=== PATIENT | male | born 1975 | race Caucasian/White ===

== ENCOUNTER 2019-07-02 03:17 | Observation (INO) | payer OTHER ==
[~2019-07-02] VITALS: Ht 182.9 cm; Wt 106.8 kg
[~2019-07-02 03:17] MED LIST: CHLO25 PO; CITA20; SUCR1 PO; Zantac150 MG PO
[2019-07-02 03:37] LABS: BASOPHILS ABSOLUTE AUTO 0.05 K/mm3 (0.00-0.23); BASOPHILS PERCENT AUTO 1 % (0-2); EOSINOPHILS PERCENT AUTO 0 % (0-6); Hematocrit 45.2 % (37.0-53.0); IMMATURE GRAN ABSOLUTE AUTO 0.02 K/mm3 (0.00-0.10); IMMATURE GRAN PERCENT AUTO 0 % (0-1); LYMPHOCYTES ABSOLUTE AUTO 0.88 K/mm3 (0.84-5.20); LYMPHOCYTES PERCENT AUTO 12 % (21-46); MONOCYTES ABSOLUTE AUTO 0.74 K/mm3 (0.16-1.47); MONOCYTES PERCENT AUTO 10 % (4-13); Mean Corpuscular HGB 32.1 pg (26.0-34.0); Mean Corpuscular HGB Conc 33.2 g/dL (31.5-36.5); Mean Corpuscular Volume 97 fL (80-100); Mean Platelet Volume 9.4 fL (9.1-12.4); NEUTROPHILS ABSOLUTE AUTO 5.79 K/mm3 (1.96-9.15); NEUTROPHILS PERCENT AUTO 77 % (41-73); Platelet Count 166 K/mm3 (150-400); RDW Coefficient Variation 14.1 % (11.7-14.2); RDW Standard Deviation 50.6 fL (35.1-46.3); Red Blood Cell Count 4.67 M/mm3 (4.30-5.90); White Blood Cell Count 7.48 K/mm3 (4.00-11.30)
[2019-07-02 03:53] LABS: Alanine Aminotransfer (ALT/SGP 101 U/L (12-78); Albumin, Blood 3.8 g/dL (3.4-5.0); Alk Phos 98 U/L (50-136); Anion Gap 10 mmol/L (6-16); Aspartate Aminotrans (AST/SGOT 104 U/L (12-37); Bilirubin, Total 0.7 mg/dL (0.1-1.0); Blood Urea Nitrogen 2 mg/dL (8-24); Bun/Creatinine Ratio 2.4 (12.0-20.0); CO2, Blood 28 mmol/L (21-32); Calcium, Blood 8.3 mg/dL (8.5-10.1); Chloride, Blood 100 mmol/L (98-108); Creatinine, Blood 0.83 mg/dL (0.60-1.20); Globulin, Blood 3.8 g/dL (2.2-4.0); Glomerular Filtration Rate >60 (60-); Glucose, Blood 100 mg/dL (70-99); Potassium, Blood 2.9 mmol/L (3.5-5.5); Sodium, Blood 138 mmol/L (136-145); Total Protein, Blood 7.6 g/dL (6.4-8.2)
[2019-07-02] MEDS ORDERED: CHLO25 PO (05:05)
[2019-07-02 06:41] LABS: Magnesium, Blood 1.3 mg/dL (1.6-2.4); Phosphorus, Blood 1.2 mg/dL (2.5-4.9)
[2019-07-02] MEDS ORDERED: Nicoderm Cq1 EACH TOP (15:29)
[2019-07-02] MEDS ORDERED: THERA M PLUS T1 EACH PO (15:30)
[2019-07-02] MEDS ORDERED: METO25ER PO (15:31)
--- NOTE | 2019-07-02 15:58 | NUR ---
PATIENT D/C'D TO HOME WITH FAMILY. D/C INSTRUCTIONS AND EDUCATION DISCUSSED WITH PATIENT AND COPY PROVIDED. RX MEDICATIONS FAXED TO [facility] IN [place]. HARD SCRIPT FOR METOPROLOL 25MG DAILY GIVEN TO PATIENT. PATIENT DENIES ANY FURTHER QUESTIONS OR CONCERNS.
== END 2019-07-02 15:55 | disposition home or self-care (01) ==
LOC: ER 03:17 → MEDS 03:18
PROVIDERS: Emergency Medicine; ADMIT Internal Medicine
DX: F41.9 Anxiety disorder, unspecified (principal); J96.01 Acute respiratory failure with hypoxia; F10.239 Alcohol dependence with withdrawal, unspecified; E87.6 Hypokalemia; E83.42 Hypomagnesemia; E83.39 Other disorders of phosphorus metabolism; R79.89 Other specified abnormal findings of blood chemistry; I10 Essential (primary) hypertension; F17.210 Nicotine dependence, cigarettes, uncomplicated; Z79.899 Other long term (current) drug therapy
CPT/HCPCS: 71046; 71260; 80053; 83735; 84100; 84484; 85025; 93005; 93010; 94640; 96361; 96372; 96374-59; 96375; 96375-59; 99285-25; G0378; J1650; J2060; J2930; J3475; J7030; J7060; Q9967

== ENCOUNTER 2021-09-03 09:54 | Emergency (ER) | payer OTHER ==
[~2021-09-03] VITALS: Ht 182.9 cm; Wt 132.0 kg
[~2021-09-03 09:54] MED LIST changes: +METO25ER PO; +Nicoderm Cq1 EACH TOP; +THERA M PLUS T1 EACH PO
[2021-09-03 11:38] LABS: BASOPHILS ABSOLUTE AUTO 0.04 K/mm3 (0.00-0.23); BASOPHILS PERCENT AUTO 1 % (0-2); EOSINOPHILS ABSOLUTE AUTO 0.12 K/mm3 (0.00-0.68); EOSINOPHILS PERCENT AUTO 2 % (0-6); Hematocrit 29.2 % (37.0-53.0); Hemoglobin 8.3 g/dL (13.5-17.5); IMMATURE GRAN ABSOLUTE AUTO 0.04 K/mm3 (0.00-0.10); IMMATURE GRAN PERCENT AUTO 1 % (0-1); LYMPHOCYTES ABSOLUTE AUTO 1.09 K/mm3 (0.84-5.20); LYMPHOCYTES PERCENT AUTO 14 % (21-46); MONOCYTES ABSOLUTE AUTO 0.85 K/mm3 (0.16-1.47); MONOCYTES PERCENT AUTO 11 % (4-13); Mean Corpuscular HGB 22.9 pg (26.0-34.0); Mean Corpuscular HGB Conc 28.4 g/dL (31.5-36.5); Mean Corpuscular Volume 81 fL (80-100); Mean Platelet Volume 11.1 fL (9.1-12.4); NEUTROPHILS ABSOLUTE AUTO 5.44 K/mm3 (1.96-9.15); NEUTROPHILS PERCENT AUTO 72 % (41-73); Platelet Count 109 K/mm3 (150-400); RDW Coefficient Variation 19.8 % (11.7-14.2); RDW Standard Deviation 57.2 fL (35.1-46.3); Red Blood Cell Count 3.62 M/mm3 (4.30-5.90); White Blood Cell Count 7.58 K/mm3 (4.00-11.30)
[2021-09-03 12:15] LABS: Alanine Aminotransfer (ALT/SGP 44 U/L (12-78); Albumin, Blood 2.6 g/dL (3.4-5.0); Albumin/Globulin Ratio 0.6 (0.8-1.8); Alk Phos 129 U/L (50-136); Anion Gap 7 mmol/L (6-16); Aspartate Aminotrans (AST/SGOT 156 U/L (12-37); Bilirubin, Total 1.5 mg/dL (0.1-1.0); Blood Urea Nitrogen 3 mg/dL (8-24); Bun/Creatinine Ratio 5.3 (12.0-20.0); CO2, Blood 31 mmol/L (21-32); Calcium, Blood 8.4 mg/dL (8.5-10.1); Chloride, Blood 104 mmol/L (98-108); Creatinine, Blood 0.56 mg/dL (0.60-1.20); Globulin, Blood 4.1 g/dL (2.2-4.0); Glomerular Filtration Rate >60 (60-); Glucose, Blood 107 mg/dL (70-99); Potassium, Blood 3.5 mmol/L (3.5-5.5); Sodium, Blood 142 mmol/L (136-145); Total Protein, Blood 6.7 g/dL (6.4-8.2); Troponin I <0.015 ng/mL (0.000-0.040)
[2021-09-03] MEDS ORDERED: POTA10T PO (13:24)
[2021-09-03] MEDS ORDERED: FURO20 PO (13:24)
[2021-09-03] MEDS ORDERED: ALBU90OI INH (13:35)
[2021-11-23] MEDS ORDERED: TORS10 PO (03:57)
[2021-11-23] MEDS ORDERED: FERSU300 PO (03:57)
[2021-12-07] MEDS ORDERED: BUME2 PO (15:11)
[2021-12-07] MEDS ORDERED: LOSA25 PO (15:11)
[2021-12-07] MEDS ORDERED: LACT10SY PO (15:12)
[2021-12-07] MEDS ORDERED: POTCHL20ER PO (15:13)
[2021-12-07] MEDS ORDERED: ALDACTONE100 MG PO (15:13)
[2021-12-07] MEDS ORDERED: KLOR-CON 1010 MEQ PO (15:17)
== END 2021-09-03 14:02 | disposition home or self-care (01) ==
LOC: ER 09:54
PROVIDERS: Physician Assistant
DX: R60.0 Localized edema (principal); D64.9 Anemia, unspecified; E88.09 Other disorders of plasma-protein metabolism, not elsewhere classified; F10.10 Alcohol abuse, uncomplicated; F17.290 Nicotine dependence, other tobacco product, uncomplicated
CPT/HCPCS: 36415; 80053; 83690; 83880; 84484; 85025; 93005; 93010; 99283-25

== ENCOUNTER → 2021-09-12 | Outpatient (CLI) | payer OTHER ==
[~2021-09-12] MED LIST changes: +ALBU90OI INH; +FURO20 PO; +POTA10T PO
[2021-09-12 16:13] LABS: Anion Gap 5 mmol/L (6-16); Blood Urea Nitrogen 3 mg/dL (8-24); Bun/Creatinine Ratio 4.4 (12.0-20.0); CO2, Blood 34 mmol/L (21-32); Calcium, Blood 8.9 mg/dL (8.5-10.1); Chloride, Blood 100 mmol/L (98-108); Creatinine, Blood 0.68 mg/dL (0.60-1.20); Glomerular Filtration Rate >60 (60-); Glucose, Blood 133 mg/dL (70-99); Potassium, Blood 3.6 mmol/L (3.5-5.5); Sodium, Blood 139 mmol/L (136-145)
== END | disposition home or self-care (01) ==
LOC: LAB SHORT 16:04
PROVIDERS: Physician Assistant Surgical
DX: R60.0 Localized edema (principal)
CPT/HCPCS: 80048; 83880

== ENCOUNTER → 2021-12-15 | Outpatient (CLI) | payer OTHER ==
[~2021-12-15] MED LIST changes: +ALDACTONE100 MG PO; +BUME2 PO; +FERSU300 PO; +KLOR-CON 1010 MEQ PO; +LACT10SY PO; +LOSA25 PO; +POTCHL20ER PO; +TORS10 PO
[2021-12-15 16:27] LABS: BASOPHILS ABSOLUTE AUTO 0.05 K/mm3 (0.00-0.23); BASOPHILS PERCENT AUTO 1 % (0-2); EOSINOPHILS ABSOLUTE AUTO 0.12 K/mm3 (0.00-0.68); EOSINOPHILS PERCENT AUTO 1 % (0-6); Hematocrit 37.3 % (37.0-53.0); Hemoglobin 11.4 g/dL (13.5-17.5); IMMATURE GRAN ABSOLUTE AUTO 0.02 K/mm3 (0.00-0.10); IMMATURE GRAN PERCENT AUTO 0 % (0-1); LYMPHOCYTES ABSOLUTE AUTO 1.56 K/mm3 (0.84-5.20); LYMPHOCYTES PERCENT AUTO 16 % (21-46); MONOCYTES ABSOLUTE AUTO 1.43 K/mm3 (0.16-1.47); MONOCYTES PERCENT AUTO 14 % (4-13); Mean Corpuscular HGB 28.6 pg (26.0-34.0); Mean Corpuscular HGB Conc 30.6 g/dL (31.5-36.5); Mean Corpuscular Volume 94 fL (80-100); NEUTROPHILS ABSOLUTE AUTO 6.82 K/mm3 (1.96-9.15); NEUTROPHILS PERCENT AUTO 68 % (41-73); Platelet Count 159 K/mm3 (150-400); RDW Coefficient Variation 23.4 % (11.7-14.2); RDW Standard Deviation 79.7 fL (35.1-46.3); Red Blood Cell Count 3.99 M/mm3 (4.30-5.90)
[2021-12-18 14:37] LABS: CORONAVIRUS (COVID19) CSH-NRL Negative (Negative)
== END | disposition home or self-care (01) ==
LOC: LAB SHORT 16:23
PROVIDERS: Family Medicine
DX: K92.1 Melena (principal); Z20.822 Contact with and (suspected) exposure to COVID-19
CPT/HCPCS: 85025

== ENCOUNTER 2021-12-22 13:33 | Inpatient (IN) | payer OTHER ==
[~2021-12-22] VITALS: Ht 185.4 cm; Wt 113.5 kg
[2021-12-22 14:13] LABS: BASOPHILS ABSOLUTE AUTO 0.03 K/mm3 (0.00-0.23); BASOPHILS PERCENT AUTO 0 % (0-2); EOSINOPHILS ABSOLUTE AUTO 0.04 K/mm3 (0.00-0.68); EOSINOPHILS PERCENT AUTO 0 % (0-6); Hematocrit 35.5 % (37.0-53.0); Hemoglobin 11.4 g/dL (13.5-17.5); IMMATURE GRAN ABSOLUTE AUTO 0.04 K/mm3 (0.00-0.10); IMMATURE GRAN PERCENT AUTO 0 % (0-1); LYMPHOCYTES ABSOLUTE AUTO 1.27 K/mm3 (0.84-5.20); LYMPHOCYTES PERCENT AUTO 14 % (21-46); MONOCYTES PERCENT AUTO 9 % (4-13); Mean Corpuscular HGB 28.7 pg (26.0-34.0); Mean Corpuscular HGB Conc 32.1 g/dL (31.5-36.5); Mean Corpuscular Volume 89 fL (80-100); Mean Platelet Volume 11.8 fL (9.1-12.4); NEUTROPHILS ABSOLUTE AUTO 6.96 K/mm3 (1.96-9.15); NEUTROPHILS PERCENT AUTO 76 % (41-73); Platelet Count 183 K/mm3 (150-400); RDW Coefficient Variation 22.2 % (11.7-14.2); RDW Standard Deviation 71.7 fL (35.1-46.3); Red Blood Cell Count 3.97 M/mm3 (4.30-5.90); White Blood Cell Count 9.14 K/mm3 (4.00-11.30)
[2021-12-22 15:01] LABS: Albumin, Blood 3.9 g/dL (3.4-5.0); Albumin/Globulin Ratio 0.7 (0.8-1.8); Bilirubin, Total 2.5 mg/dL (0.1-1.0); Globulin, Blood 5.3 g/dL (2.2-4.0); Total Protein, Blood 9.2 g/dL (6.4-8.2)
[2021-12-22 15:02] LABS: Bun/Creatinine Ratio 10.9 (12.0-20.0); Creatinine, Blood 9.48 mg/dL (0.60-1.20); Potassium, Blood 7.3 mmol/L (3.5-5.5)
[2021-12-22 15:20] LABS: International Normalized Ratio 1.3; Prothrombin Time Results 13.4 Sec (9.7-11.5)
[2021-12-22 16:15] LABS: Calcium, Ionized (POC) 1.09 mmol/L (1.10-1.46); Chloride (POC) 98 mmol/L (98-108); Glucose (ISTAT POC) 150 mg/dL (70-99); Hemoglobin (POC) 10.2 g/dL (13.5-17.5); Potassium (POC) 6.4 mmol/L (3.5-5.5); Sodium (POC) 131 mmol/L (135-148); Total CO2 (POC) 18 mmol/L (21-32)
[2021-12-22] MEDS ORDERED: BUME2 PO (17:18)
[2021-12-22] MEDS ORDERED: FeroSul 325 mg (65 m PO (17:19)
[2021-12-22] MEDS ORDERED: ENULOSE PO (17:20)
[2021-12-22] MEDS ORDERED: LOSARTAN POTAS100 M1 PO (17:21)
[2021-12-22] MEDS ORDERED: OMEP20ER PO (17:23)
[2021-12-22] MEDS ORDERED: K-Dur20 MEQ PO (17:24)
[2021-12-22] MEDS ORDERED: Aldactone50 MG PO (17:25)
[2021-12-22 20:33] LABS: Source, Urine Clean Catch
[2021-12-22 20:37] LABS: Appearance, Urine Clear (Clear); Bilirubin, Urine Neg (Neg); Blood, Urine 1+ (Neg); Color, Urine Yellow (P-Yellow); Glucose Qualitative, Urine Neg (Neg); Ketones, Urine Neg (Neg); Leukocyte Esterase, Urine Neg (Neg); Nitrite, Urine Neg (Neg); Protein, Urine 1+ (Neg); Urobilinogen, Urine NORM (Normal)
[2021-12-22 20:50] LABS: Bacteria Mod /hpf; Red Blood Cells, Urine Rare /hpf (0-2); Squamous Epithelial Cells Rare /hpf (Few); White Blood Cells, Urine 0-2 /hpf (0-5)
[2021-12-22 21:03] LABS: BASOPHILS ABSOLUTE AUTO 0.03 K/mm3 (0.00-0.23); BASOPHILS PERCENT AUTO 0 % (0-2); EOSINOPHILS PERCENT AUTO 1 % (0-6); Hematocrit 34.9 % (37.0-53.0); Hemoglobin 10.7 g/dL (13.5-17.5); IMMATURE GRAN ABSOLUTE AUTO 0.03 K/mm3 (0.00-0.10); IMMATURE GRAN PERCENT AUTO 0 % (0-1); LYMPHOCYTES ABSOLUTE AUTO 1.28 K/mm3 (0.84-5.20); LYMPHOCYTES PERCENT AUTO 17 % (21-46); MONOCYTES ABSOLUTE AUTO 0.81 K/mm3 (0.16-1.47); MONOCYTES PERCENT AUTO 11 % (4-13); Mean Corpuscular HGB 29.2 pg (26.0-34.0); Mean Corpuscular HGB Conc 30.7 g/dL (31.5-36.5); Mean Platelet Volume 11.5 fL (9.1-12.4); NEUTROPHILS ABSOLUTE AUTO 5.26 K/mm3 (1.96-9.15); NEUTROPHILS PERCENT AUTO 70 % (41-73); Platelet Count 128 K/mm3 (150-400); RDW Coefficient Variation 22.5 % (11.7-14.2); RDW Standard Deviation 77.7 fL (35.1-46.3); Red Blood Cell Count 3.67 M/mm3 (4.30-5.90); White Blood Cell Count 7.51 K/mm3 (4.00-11.30)
[2021-12-22 21:06] LABS: Mean Corpuscular Volume 95 fL (80-100)
[2021-12-22 21:29] LABS: Ethanol (Alcohol), Blood, Med <3 mg/dL
[2021-12-22 21:40] LABS: Albumin, Blood 3.7 g/dL (3.4-5.0); Anion Gap 14 mmol/L (6-16); Blood Urea Nitrogen 99 mg/dL (8-24); Bun/Creatinine Ratio 11.6 (12.0-20.0); CO2, Blood 18 mmol/L (21-32); Chloride, Blood 98 mmol/L (98-108); Creatinine, Blood 8.56 mg/dL (0.60-1.20); Glomerular Filtration Rate 7 (60-); Glucose, Blood 114 mg/dL (70-99); Potassium, Blood 6.7 mmol/L (3.5-5.5); Sodium, Blood 130 mmol/L (136-145)
[2021-12-22 21:41] LABS: Phosphorus, Blood 8.1 mg/dL (2.5-4.9)
--- NOTE | 2021-12-23 02:40 | NUR ---
PATIENT TO ROOM FROM ER AT 2015, SLID TO BED. PATIENT IS LETHARGIC BUT ABLE TO HOLD A CONVERSATION, ORIENTED X4 BUT SLOW TO RESPOND AND FORGETFULL. MOVES ALL EXTREMETIES AND FOLLOWS COMMANDS. 02 SATS >93% ON RA, PATIENT HAS A DRY COUGH WITH COARSE LUNG SOUNDS THROUGHOUT. DENIES SOB. HR SR-ST 90s-150s, HR INCREASES WITH ACTIVITY. BP HYPOTENSIVE WHEN PATIENT ARRIVED, MIDODRINE GIVEN AND ALBUMIN GIVEN, BP NOW STABLE. PULSES STRONG IN ALL EXTREMETIES. PITTING EDEMA, REDNESS AND PAINFUL BLE. PATIENT STATES REDNESS AND PAIN IN LEGS STARTED 12/22/21. PATIENT HAVING LOOSE/SOFT STOOLS, SOME BRIGHT RED IN FIRST BM AND NOW BROWN. URINATING IN URINAL, CLEAR YELLOW. MOM AT BEDSIDE, CONFIRMED MED LIST. DR. BASS AT [facility] WHEN PATIENT ARRIVED AND TO SEE PATIENT JUST BEFORE 2200. AWARE OF CRITICAL LAB VALUES, MEDICATED PATIENT PER S ORDERS. NOTIED DR OF CONFLICTING ORDERS WITH DR. BASS.
[2021-12-23 04:00] LABS: BASOPHILS ABSOLUTE AUTO 0.03 K/mm3 (0.00-0.23); BASOPHILS PERCENT AUTO 0 % (0-2); EOSINOPHILS ABSOLUTE AUTO 0.13 K/mm3 (0.00-0.68); EOSINOPHILS PERCENT AUTO 2 % (0-6); Hematocrit 29.6 % (37.0-53.0); Hemoglobin 9.4 g/dL (13.5-17.5); IMMATURE GRAN ABSOLUTE AUTO 0.02 K/mm3 (0.00-0.10); IMMATURE GRAN PERCENT AUTO 0 % (0-1); LYMPHOCYTES ABSOLUTE AUTO 1.32 K/mm3 (0.84-5.20); LYMPHOCYTES PERCENT AUTO 17 % (21-46); MONOCYTES ABSOLUTE AUTO 0.93 K/mm3 (0.16-1.47); MONOCYTES PERCENT AUTO 12 % (4-13); Mean Corpuscular HGB 28.5 pg (26.0-34.0); Mean Corpuscular HGB Conc 31.8 g/dL (31.5-36.5); Mean Platelet Volume 10.9 fL (9.1-12.4); NEUTROPHILS ABSOLUTE AUTO 5.14 K/mm3 (1.96-9.15); NEUTROPHILS PERCENT AUTO 68 % (41-73); Platelet Count 130 K/mm3 (150-400); RDW Coefficient Variation 21.8 % (11.7-14.2); RDW Standard Deviation 70.4 fL (35.1-46.3); White Blood Cell Count 7.57 K/mm3 (4.00-11.30)
[2021-12-23 04:20] LABS: Albumin, Blood 3.8 g/dL (3.4-5.0); Albumin/Globulin Ratio 0.9 (0.8-1.8); Bilirubin, Total 2.6 mg/dL (0.1-1.0); Bun/Creatinine Ratio 12.4 (12.0-20.0); Calcium, Blood 8.7 mg/dL (8.5-10.1); Creatinine, Blood 7.56 mg/dL (0.60-1.20); Globulin, Blood 4.4 g/dL (2.2-4.0); Phosphorus, Blood 7.2 mg/dL (2.5-4.9); Potassium, Blood 5.7 mmol/L (3.5-5.5); Total Protein, Blood 8.2 g/dL (6.4-8.2)
[2021-12-23 04:28] LABS: Mean Corpuscular Volume 90 fL (80-100)
[2021-12-23 04:29] LABS: International Normalized Ratio 1.38; Prothrombin Time Results 14.2 Sec (9.7-11.5)
[2021-12-23 05:11] LABS: Influenza A, PCR NEGATIVE (NEGATIVE); Influenza B, PCR NEGATIVE (NEGATIVE); Resp Syncytial Virus, PCR NEGATIVE (NEGATIVE); SARS-Cov-2 (COVID-19) PCR, MMC NEGATIVE (NEGATIVE)
--- NOTE | 2021-12-23 06:34 | NUR ---
SHIFT SUMMARY PATIENT REMAIN LETHARGIC BUT ORIENTED X4, WITH SOME FORGETFULLNESS AND IS SLOW TO REPSOND. 02 SATS 100% ON RA, LS COARSE T/O, PATIENT HAS DRY COUGH THAT HE STATES HE HAS HAD FOR A WHILE. HR SR-ST 90s-130, INCREASES WITH ACTIVITY. BP STABLE. USES URINAL APPROX 1500 OUT, CLEAR YELLOW. SEVERAL SMALL LOOSE BROWN BOWEL MOVEMENTS. PATIENT UP TO BEDSIDE COMMODE. INDEPENDENT WITH REPOSITIONING IN BED. CALL LIGHT IN REACH
--- NOTE | 2021-12-23 06:55 | NUR ---
DR. HERNANDEZ AT BEDSIDE THIS AM AND AWARE OF MOST RECENT LABS
--- NOTE | 2021-12-23 18:45 | NUR ---
TRANSFER OF CARE RECEIVED A REPORT FROM [facility]. PATIENT TRANSFERRED FROM ICU, ASSUMED CARE AT APPROXIMATELY 1650. PATIENT IS ALERT AND ORIENTED X4, BUT IS SLOW TO RESPOND. PATIENT IS COOPERATIVE WITH CARE. VSS. TELE NSR IN 90'S TO SINUS TACHY WITH MOVEMENT IN 100'S. SPO2 >95% RA. PATIENT DENIES CHEST PAIN/PRESSURE, SOB, NUBNESS/TINGLING SENSATION; HOWEVER, DOES REPORT CONSTANT EPIGASTRIC PAIN/ACHE 7/10 CHRONIC IN ITS NATURE, NO TX SOUGHT FOR IT AT THIS TIME. PATIENT IS SBA, USES URINAL INDEPENDENTLY. REDNESS NOTED TO BLE, NO PAIN NOTED AT THIS TIME. NO ACUTE CHANGES AT THIS TIME. WILL CONTINUE TO MONITOR UNTIL NEXT SHIFT.
--- NOTE | 2021-12-23 19:16 | NUR ---
I HAVE REVIEWED THE NURSING STUDENTS DOCUMENATION AND AM IN AGREEMENT. NO S/SX OF DISTRESS NOTED. REPORT GIVEN TO ONCOMING RN.
--- NOTE | 2021-12-23 23:53 | NUR ---
PHYSICIAN NOTIFIED PT REPORTS MUSCLE SPASMS, PHYSICIAN NOTIFIED.SEE EMAR FOR PHYSICIAN ORDERS.
[2021-12-24 03:53] LABS: BASOPHILS ABSOLUTE AUTO 0.02 K/mm3 (0.00-0.23); BASOPHILS PERCENT AUTO 0 % (0-2); EOSINOPHILS ABSOLUTE AUTO 0.15 K/mm3 (0.00-0.68); EOSINOPHILS PERCENT AUTO 3 % (0-6); Hematocrit 27.6 % (37.0-53.0); IMMATURE GRAN ABSOLUTE AUTO 0.01 K/mm3 (0.00-0.10); IMMATURE GRAN PERCENT AUTO 0 % (0-1); LYMPHOCYTES ABSOLUTE AUTO 1.79 K/mm3 (0.84-5.20); LYMPHOCYTES PERCENT AUTO 30 % (21-46); MONOCYTES ABSOLUTE AUTO 0.78 K/mm3 (0.16-1.47); MONOCYTES PERCENT AUTO 13 % (4-13); Mean Corpuscular HGB 29.1 pg (26.0-34.0); Mean Corpuscular HGB Conc 32.6 g/dL (31.5-36.5); Mean Corpuscular Volume 89 fL (80-100); Mean Platelet Volume 10.6 fL (9.1-12.4); NEUTROPHILS ABSOLUTE AUTO 3.29 K/mm3 (1.96-9.15); NEUTROPHILS PERCENT AUTO 55 % (41-73); Platelet Count 102 K/mm3 (150-400); RDW Coefficient Variation 21.7 % (11.7-14.2); Red Blood Cell Count 3.09 M/mm3 (4.30-5.90); White Blood Cell Count 6.04 K/mm3 (4.00-11.30)
[2021-12-24 04:19] LABS: Albumin, Blood 4.3 g/dL (3.4-5.0); Albumin/Globulin Ratio 1.2 (0.8-1.8); Bilirubin, Total 2.6 mg/dL (0.1-1.0); Bun/Creatinine Ratio 17.2 (12.0-20.0); Calcium, Blood 9.1 mg/dL (8.5-10.1); Creatinine, Blood 4.13 mg/dL (0.60-1.20); Globulin, Blood 3.7 g/dL (2.2-4.0); Magnesium, Blood 1.7 mg/dL (1.6-2.4); Phosphorus, Blood 5.3 mg/dL (2.5-4.9); Potassium, Blood 4.1 mmol/L (3.5-5.5)
--- NOTE | 2021-12-24 05:57 | NUR ---
ENGINEER BOOSTER AND EXHAUSTER SUMMARY PT IS AXO BUT REMAINS TIRED AND SLOW TO RESPOND WITH CONVERSATION. PT HAS REPRTED CRAMPING PAIN IN HIS LEGS THIS SHIFT SO ORDER FOR FLEXERIL WAS GIVEN W MINIMAL RELEIF. PT'S VS REMAINED STABLE AND AFEBRILE. O2 SATS REMAINED >92% ON RM AIR. PT SLEPT COMFORTABLY IN BED W CALL LIGHT WITHIN REACH. WILL REPORT TO ONCOMING RN.
--- NOTE | 2021-12-24 08:30 | NUR ---
INITIAL ASSESSMENT: Patient is alert and oriented x4. He is sitting up in bed after eating breakfast of clear liquids. He denies pain at this time. HR in the high 90s per telemetry. LS Coarse T/O, pt has coarse NPC. He states he quit smoking about 5-6 months ago and has had the cough since. Biox 100% on RA. BT+, pt is taking lactulose, per patient he is having some loose stool. PPP. Trace pitting edema to BLE. Other VSS. AM medications given at this time, midodrine held for SBP 136. Patient denies other needs, WCTM.
[2021-12-24 09:11] LABS: HBSAG SCREEN Negative (Negative); HCV ANTIBODY <0.1 (0.0-0.9); HEP B CORE AB, TOT Negative (Negative)
--- NOTE | 2021-12-24 17:30 | NUR ---
Summary: Patient has been alert and oriented T/O the shift. No C/O pain. HRR, he has been sinus rhythm in the 90s. LS Coarse T/O, pt states he quit smoking 5-6 months ago and has had a coarse cough since. Biox has been in the high 90s T/O the shift.BT+, He has been having loose stools-but he is recieving Lactulose. VSS T/O the shift-Midodrine was held due to SBP being in the 130s. Dr. Garza came to see the patient today, plan for EGD and colonscopy tomorrow. Diet changed to clear liquid, he will start golytely tomorrow at 0500. No acute changes this shift. Will report to oncoming RN.
--- NOTE | 2021-12-24 20:23 | NUR ---
CARE ASSUMPTION NOTE EUGENIA GUTIERREZ AND JAIME HOPSON ASSUMED CARE OF PATIENT AT 1900. REPORT TAKEN FROM BERRY HOPSON
--- NOTE | 2021-12-25 04:16 | NUR ---
SHIFT SUMMARY PATIENT A&O X4. PATIENT IS CALM AND COOPERATIVE WITH CARE. INDEPENDENT WITH ADLS. CONTINENT OF B/B. CONTINUOUS TELEMETRY SHOWING SR/ST DEPENDING ON PATIENT MOVEMENT. HR IN THE 90S, SBP 120-140S. O2 >95% ON RA. PATIENT HAS BEEN ON A CLEAR LIQUID DIET DURING SHIFT WITH GOLYTELY TO START AT 0500 FOR COLONOSCOPY IN THE AM. PATIENT VERBALIZES UNDERSTANDING OF PROCEDURE. URINATING CLEAR YELLOW URINE IN URINAL SO STAFF CAN MEASURE OUTPUT. STATES THAT BOWEL MOVEMENTS ARE STILL FREQUENT/LOOSE/BROWN; PATIENT IS GETTING LACTULOSE. UNDERSTANDS HOW TO USE CALL BUTTON. ABLE TO REPOSITION SELF. BED IN LOWEST POSITION. WILL CONTINUE TO MONITOR.
[2021-12-25 04:35] LABS: BASOPHILS ABSOLUTE AUTO 0.03 K/mm3 (0.00-0.23); BASOPHILS PERCENT AUTO 1 % (0-2); EOSINOPHILS ABSOLUTE AUTO 0.23 K/mm3 (0.00-0.68); EOSINOPHILS PERCENT AUTO 4 % (0-6); Hemoglobin 9.6 g/dL (13.5-17.5); IMMATURE GRAN ABSOLUTE AUTO 0.01 K/mm3 (0.00-0.10); IMMATURE GRAN PERCENT AUTO 0 % (0-1); LYMPHOCYTES ABSOLUTE AUTO 1.51 K/mm3 (0.84-5.20); LYMPHOCYTES PERCENT AUTO 29 % (21-46); MONOCYTES ABSOLUTE AUTO 0.59 K/mm3 (0.16-1.47); MONOCYTES PERCENT AUTO 11 % (4-13); Mean Corpuscular HGB 29.4 pg (26.0-34.0); Mean Corpuscular Volume 92 fL (80-100); Mean Platelet Volume 10.5 fL (9.1-12.4); NEUTROPHILS ABSOLUTE AUTO 2.92 K/mm3 (1.96-9.15); NEUTROPHILS PERCENT AUTO 55 % (41-73); Platelet Count 85 K/mm3 (150-400); RDW Coefficient Variation 21.3 % (11.7-14.2); RDW Standard Deviation 71.9 fL (35.1-46.3); Red Blood Cell Count 3.26 M/mm3 (4.30-5.90); White Blood Cell Count 5.29 K/mm3 (4.00-11.30)
[2021-12-25 04:50] LABS: Albumin, Blood 4.7 g/dL (3.4-5.0); Albumin/Globulin Ratio 1.2 (0.8-1.8); Bilirubin, Total 3.2 mg/dL (0.1-1.0); Bun/Creatinine Ratio 20.8 (12.0-20.0); Creatinine, Blood 2.16 mg/dL (0.60-1.20); Globulin, Blood 3.9 g/dL (2.2-4.0); Magnesium, Blood 1.6 mg/dL (1.6-2.4); Phosphorus, Blood 3.4 mg/dL (2.5-4.9); Potassium, Blood 4.4 mmol/L (3.5-5.5); Total Protein, Blood 8.6 g/dL (6.4-8.2)
[2021-12-25 13:10] LABS: ACTIN (SMOOTH MUSCLE) ANTIBODY 26 Units (0-19)
--- NOTE | 2021-12-25 14:30 | NUR ---
12/25/21 1430 MALISSA LANIER History, Chart, Medications and Allergies reviewed before start of procedure. 3-LEAD EKG REVIEWED WITH PHYSICIAN PRIOR TO START OF PROCEDURE. O2 VIA POM INTACT THROUGHOUT SEDATION/PROCEDURE. MONITOR INTACT WITH CONTINUOUS PULSE OXIMETRY AND INTERMITTENT BP. GENERAL WITH DR. JARA.
--- NOTE | 2021-12-25 18:49 | NUR ---
SHIFT SUMMARY PT A&Ox4, VSS, SR 90'S. PT NPO FOR SCOPE TODAY. PT BACK FROM PROCEDURE A&Ox4 AND ABLE TOLERATE LOW NA DIET. NO SIGNS OF BLEEDING THROUGHOUT THE DAY. WILL CONTINUE TO MONITOR UNTIL REPORT TO NOC.
--- NOTE | 2021-12-25 19:16 | NUR ---
THIS RN AGREES W/ STUDENT NURSE DOCUMENTATION THIS SHIFT.
--- NOTE | 2021-12-25 23:43 | NUR ---
PATIENT TRANSFER NOTE TRANSPORTED PATIENT TO MEDICAL FLOOR RM 305. REPORT GIVEN TO VIRGINIE HOPSON WHO ASSUMED CARE AT 2335.
[2021-12-26 05:38] LABS: BASOPHILS ABSOLUTE AUTO 0.04 K/mm3 (0.00-0.23); BASOPHILS PERCENT AUTO 1 % (0-2); EOSINOPHILS ABSOLUTE AUTO 0.27 K/mm3 (0.00-0.68); EOSINOPHILS PERCENT AUTO 4 % (0-6); Hematocrit 29.3 % (37.0-53.0); Hemoglobin 9.3 g/dL (13.5-17.5); IMMATURE GRAN ABSOLUTE AUTO 0.01 K/mm3 (0.00-0.10); IMMATURE GRAN PERCENT AUTO 0 % (0-1); LYMPHOCYTES ABSOLUTE AUTO 1.35 K/mm3 (0.84-5.20); LYMPHOCYTES PERCENT AUTO 21 % (21-46); MONOCYTES ABSOLUTE AUTO 0.86 K/mm3 (0.16-1.47); MONOCYTES PERCENT AUTO 13 % (4-13); Mean Corpuscular HGB 29.6 pg (26.0-34.0); Mean Corpuscular HGB Conc 31.7 g/dL (31.5-36.5); Mean Corpuscular Volume 93 fL (80-100); Mean Platelet Volume 10.8 fL (9.1-12.4); NEUTROPHILS ABSOLUTE AUTO 4.01 K/mm3 (1.96-9.15); NEUTROPHILS PERCENT AUTO 61 % (41-73); Platelet Count 78 K/mm3 (150-400); RDW Coefficient Variation 20.8 % (11.7-14.2); RDW Standard Deviation 71.7 fL (35.1-46.3); Red Blood Cell Count 3.14 M/mm3 (4.30-5.90); White Blood Cell Count 6.54 K/mm3 (4.00-11.30)
[2021-12-26 06:07] LABS: Albumin, Blood 4.1 g/dL (3.4-5.0); Albumin/Globulin Ratio 1.1 (0.8-1.8); Bilirubin, Total 2.9 mg/dL (0.1-1.0); Bun/Creatinine Ratio 15.4 (12.0-20.0); Calcium, Blood 9.7 mg/dL (8.5-10.1); Creatinine, Blood 1.82 mg/dL (0.60-1.20); Globulin, Blood 3.8 g/dL (2.2-4.0); Magnesium, Blood 1.8 mg/dL (1.6-2.4); Phosphorus, Blood 3.8 mg/dL (2.5-4.9); Potassium, Blood 4.4 mmol/L (3.5-5.5); Total Protein, Blood 7.9 g/dL (6.4-8.2)
[2021-12-26] MEDS ORDERED: PROP10 PO (15:33)
--- NOTE | 2021-12-26 16:16 | NUR ---
DISCHARGE DISCHARGE INSTRUCTIONS, MEDICATION LIST AND FOLLOW UP APPOINTMENTS REVIEWED WITH PT. PT VERBALLY INDICATED UNDERSTANDING OF ALL INSTRUCTIONS RECEIVED. TELE BOX REMOVED AND RETURNED TO PCU. ESCORTED OUT BY [facility] VIA W/C
[2021-12-31 14:07] LABS: ALPHA-1-ANTITRYPSIN, SERUM 156 mg/dL (101-187)
== END 2021-12-26 16:13 | DRG 432 ==
LOC: ER 13:33 → ICUE 17:06 → MEDS 17:06 → ICUW 17:06 → PCU 17:06 → ICUE 20:15 → PCU 12-23 16:49 → MEDS 12-25 23:40
PROVIDERS: Emergency Medicine; Internal Medicine Gastroenterology; Internal Medicine Nephrology; Student in an Organized Health Care Education/Training Program; ADMIT Family Medicine
PROC: 0DJ08ZZ Inspection of Upper Intestinal Tract, Via Natural or Artificial Opening Endoscopic (ICD-10-PCS; principal; 2021-12-25 12:30)
PROC: 0DBM8ZZ Excision of Descending Colon, Via Natural or Artificial Opening Endoscopic (ICD-10-PCS; 2021-12-25 12:30)
DX: K70.31 Alcoholic cirrhosis of liver with ascites (principal); K72.00 Acute and subacute hepatic failure without coma; I85.11 Secondary esophageal varices with bleeding; K57.31 Diverticulosis of large intestine without perforation or abscess with bleeding; N17.0 Acute kidney failure with tubular necrosis; K62.5 Hemorrhage of anus and rectum; E87.2 Acidosis; E87.1 Hypo-osmolality and hyponatremia; N25.81 Secondary hyperparathyroidism of renal origin; K83.09 Other cholangitis; Z20.822 Contact with and (suspected) exposure to COVID-19; E66.01 Morbid (severe) obesity due to excess calories; K72.90 Hepatic failure, unspecified without coma; D63.1 Anemia in chronic kidney disease; N18.9 Chronic kidney disease, unspecified; I12.9 Hypertensive chronic kidney disease with stage 1 through stage 4 chronic kidney disease, or unspecified chronic kidney disease; F10.21 Alcohol dependence, in remission; R19.7 Diarrhea, unspecified; K64.4 Residual hemorrhoidal skin tags; E87.70 Fluid overload, unspecified; Z87.891 Personal history of nicotine dependence; Z68.36 Body mass index [BMI] 36.0-36.9, adult; Z87.81 Personal history of (healed) traumatic fracture; Z79.899 Other long term (current) drug therapy; Y90.0 Blood alcohol level of less than 20 mg/100 ml
CPT/HCPCS: 0241U; 36415; 71045; 76705; 76770; 80047; 80053; 80069; 81001; 82103; 82104; 82105; 82140; 82390; 83605; 83690; 83735; 84100; 84132; 84300; 85014; 85025; 85610; 85730; 86015; 86038; 86317; 86381; 86704; 86708; 86803; 86850; 86900; 86901; 86902; 87040; 87086; 87340; 88305; 93005; 93010; 96374; 96375; 99285-25; A9270; C1751; C9113; G0480; J0610; J0696; J1815; J2250; J2354; J2405; J2704; J7030; J7050; J7060; J7070; J7120; P9046

== ENCOUNTER 2023-08-09 11:34 | Inpatient (IN) | payer OTHER ==
[~2023-08-09] VITALS: Ht 182.9 cm; Wt 113.4 kg
[~2023-08-09 11:34] MED LIST changes: +Aldactone50 MG PO; +ENULOSE PO; +FeroSul 325 mg (65 m PO; +K-Dur10 MEQ PO; +K-Dur20 MEQ PO; +LOSARTAN POTAS100 M1 PO; +OMEP20ER PO; +ONDA4ODT SL; +PROP10 PO
[2023-08-09 12:55] LABS: BASOPHILS ABSOLUTE AUTO 0.16 K/mm3 (0.00-0.23); BASOPHILS PERCENT AUTO 1 % (0-2); Hematocrit 37.1 % (37.0-53.0); Hemoglobin 12.3 g/dL (13.5-17.5); LYMPHOCYTES ABSOLUTE AUTO 2.14 K/mm3 (0.84-5.20); LYMPHOCYTES PERCENT AUTO 10 % (21-46); MONOCYTES ABSOLUTE AUTO 1.93 K/mm3 (0.16-1.47); MONOCYTES PERCENT AUTO 9 % (4-13); Mean Corpuscular HGB 29.1 pg (26.0-34.0); Mean Corpuscular HGB Conc 33.2 g/dL (31.5-36.5); Mean Corpuscular Volume 88 fL (80-100); Mean Platelet Volume 10.5 fL (9.1-12.4); NRBC ABSOLUTE 0.05 K/mm3 (0.00-0.02); NRBC Auto 0.2 /100 WBC (0.0-0.2); Platelet Count 123 K/mm3 (150-400); RDW Coefficient Variation 15.7 % (11.7-14.2); RDW Standard Deviation 49.3 fL (35.1-46.3); Red Blood Cell Count 4.22 M/mm3 (4.30-5.90); White Blood Cell Count 21.83 K/mm3 (4.00-11.30)
[2023-08-09 13:03] LABS: EOSINOPHILS ABSOLUTE AUTO 0.49 K/mm3 (0.00-0.68); EOSINOPHILS PERCENT AUTO 2 % (0-6); IMMATURE GRAN ABSOLUTE AUTO 0.26 K/mm3 (0.00-0.10); IMMATURE GRAN PERCENT AUTO 1 % (0-1); NEUTROPHILS ABSOLUTE AUTO 16.85 K/mm3 (1.96-9.15); NEUTROPHILS PERCENT AUTO 77 % (41-73)
[2023-08-09 13:19] LABS: Albumin, Blood 1.5 g/dL (3.4-5.0); Albumin/Globulin Ratio 0.3 (0.8-1.8); Bilirubin, Total 1.5 mg/dL (0.1-1.0); Bun/Creatinine Ratio 12.4 (12.0-20.0); Calcium, Blood 7.3 mg/dL (8.5-10.1); Creatinine, Blood 0.73 mg/dL (0.60-1.20); Globulin, Blood 4.5 g/dL (2.2-4.0); Potassium, Blood 3.1 mmol/L (3.5-5.5)
[2023-08-09 15:40] LABS: Source, Urine Clean Catch
[2023-08-09 16:04] LABS: Appearance, Urine Clear (Clear); Bilirubin, Urine Neg (Neg); Blood, Urine Neg (Neg); Color, Urine Yellow (P-Yellow); Glucose Qualitative, Urine Neg (Neg); Ketones, Urine Neg (Neg); Leukocyte Esterase, Urine Neg (Neg); Nitrite, Urine Neg (Neg); Protein, Urine Neg (Neg); Urobilinogen, Urine NORM (Normal)
[2023-08-09 19:16] LABS: Influenza A, PCR NEGATIVE (NEGATIVE); Influenza B, PCR NEGATIVE (NEGATIVE); Resp Syncytial Virus, PCR NEGATIVE (NEGATIVE); SARS-Cov-2 (COVID-19) PCR, MMC NEGATIVE (NEGATIVE)
[2023-08-09 19:32] LABS: International Normalized Ratio 1.4; Prothrombin Time Results 14.4 Sec (9.7-11.5)
[2023-08-09 21:55] VITALS: BP 149/89
--- NOTE | 2023-08-09 23:06 | NUR ---
ADMIT NOTE LATE ENTRY PT TRANSPORTED TO UNIT VIA [facility] AT 2143. SLID FROM [facility] TO HOSPITAL BED. ORIENTED PT TO ROOM AND CALL LIGHT. [facility]. EDUCATED ON FIRE SAFETY AND PREVENTION. RECEIVED REPORT FROM CYRUS HOPSON. BED KEPT IN LOWEST POSITION WITH CALL LIGHT WITHIN REACH.
[2023-08-10 04:21] VITALS: BP 143/90
--- NOTE | 2023-08-10 04:49 | NUR ---
SHIFT SUMMARY PT A&O, VERY TIRED. FALLING ASLEEP WHILE ASKING QUESTIONS. SBA TO BSC. PT EXPERIENCING LOOSE STOOLS. DENIES PAIN. CIWA PROTOCOL MAINTAINED. GASTROENTEROLOGY CONSULT ORDERED. PT CURRENTLY ON A CLEAR LIQUID DIET. BED KEPT IN LOWEST POSITION WITH CALL LIGHT WITHIN REACH. PT CALLS APPROPRAIETLY. WILL CONTINUE TO MONITOR.
[2023-08-10 09:25] VITALS: BP 126/85
[2023-08-10 15:57] VITALS: BP 161/88
[2023-08-10 16:00] LABS: Hemoglobin 10.1 g/dL (13.5-17.5); Mean Corpuscular HGB 29.3 pg (26.0-34.0); Mean Corpuscular HGB Conc 32.6 g/dL (31.5-36.5); Mean Corpuscular Volume 90 fL (80-100); Mean Platelet Volume 9.2 fL (9.1-12.4); NRBC ABSOLUTE 0.05 K/mm3 (0.00-0.02); NRBC Auto 0.3 /100 WBC (0.0-0.2); Platelet Count 86 K/mm3 (150-400); RDW Coefficient Variation 15.7 % (11.7-14.2); Red Blood Cell Count 3.45 M/mm3 (4.30-5.90); White Blood Cell Count 16.52 K/mm3 (4.00-11.30)
[2023-08-10 16:29] LABS: Albumin, Blood 1.3 g/dL (3.4-5.0); Albumin/Globulin Ratio 0.4 (0.8-1.8); Bilirubin, Total 0.7 mg/dL (0.1-1.0); Bun/Creatinine Ratio 9.6 (12.0-20.0); Creatinine, Blood 0.62 mg/dL (0.60-1.20); Globulin, Blood 3.5 g/dL (2.2-4.0); Magnesium, Blood 1.6 mg/dL (1.6-2.4); Phosphorus, Blood 1.3 mg/dL (2.5-4.9); Potassium, Blood 2.5 mmol/L (3.5-5.5); Total Protein, Blood 4.8 g/dL (6.4-8.2)
[2023-08-10 16:33] LABS: BAND PERCENT MAN 3 % (0-8); BASOPHILS PERCENT MAN 0 % (0-2); EOSINOPHILS ABSOLUTE MAN 0.49 K/mm3 (0.00-0.68); EOSINOPHILS PERCENT MAN 3 % (0-6); LYMPHOCYTES ABSOLUTE MAN 2.97 K/mm3 (0.84-5.20); LYMPHOCYTES PERCENT MAN 18 % (21-46); MONOCYTES ABSOLUTE MAN 1.48 K/mm3 (0.16-1.47); MONOCYTES PERCENT MAN 9 % (4-13); NEUTROPHILS ABSOLUTE MAN 11.56 K/mm3 (1.96-9.15); SEG NEUTROPHILS PERCENT MAN 67 % (41-73); TOTAL CELLS COUNTED 100
--- NOTE | 2023-08-10 16:56 | NUR ---
PT AOX4 AND COOPERATIVE OF CARE. PT HAS BEEN INDEPENDENT IN ROOM AND CALLS APPROPRIATELY. PT REPORTS BMs STILL LOOSE AND DARK BROWN. PT REPORTED MUSCLE CRAMPS AND DR SMITH NOTIFIED AND REQUESTED LABS. DR SMITH ADDED MEDS AFTER LAB RESULTS. CALL LIGHT IS WITHIN REACH WILL CONTINUE TO MONITOR.
[2023-08-10 20:14] VITALS: BP 170/91
--- NOTE | 2023-08-10 20:48 | NUR ---
HOSPITALIST NOTIFIED. HOSPITALIST CALLED REGARDING PATIENTS ELEVATED B/P OF 170/91 WITH A PULSE OF 104. DISSCUSSED WITH HOSPITALIST PATIENTS PREVIOUS B/P'S. PER HOSPITALIST TO RECHECK B/P IN TWO HOURS 2377.
--- NOTE | 2023-08-10 23:28 | NUR ---
PATIENT TRANSFERED TO ROOM 328 VIA HOSPITAL BED-PATIENT SELF TRANSFERED TO BED IN ROOM 328. PATIENT BROUGHT TO ROOM WITH PERSONAL BACKPACK AND 2 PATIENT BELONGINGS BAGS. REPORT GIVEN TO CHUY DELGADO RN.
[2023-08-10 23:41] LABS: Potassium, Blood 2.7 mmol/L (3.5-5.5)
--- NOTE | 2023-08-10 23:50 | NUR ---
PT MOVED FROM ROOM 348 TO ROOM 328, RECIEVED REPORT FROM EMILIANA CARRASCO. AGREE WITH JIM'S ASSESSMENT EXCEPT, PT REPORTS NAUSEA, NO NAUSEA MEDS ORDERED AT THIS TIME, WILL CALL DR TO TRY TO GET SOME NAUSEA MEDS ORDERED. PT DENIES ANY PAIN AT THIS TIME, DOES REPORT ABD FEELS "A LITTLE BLOATED", DOES NOT VISIBLY APPEAR DISTENDED OR FEEL FIRM. NO OTHER APPARENT SIGNS OF DISTRESS. CALL LIGHT IS IN REACH.
[2023-08-10 23:56] LABS: Phosphorus, Blood 1.8 mg/dL (2.5-4.9)
[2023-08-11 04:48] VITALS: BP 149/87
--- NOTE | 2023-08-11 05:43 | NUR ---
0134 [facility] STARTED R/T REDRAW ON PHOS BEING 1.8 AND K+ BEING 2.7. CALLED DR CAAL. PT DENIES NEED FOR ANYTHING ELSE AT THIS TIME. NO OTHER APPARENT SIGNS OF DISTRESS. CALL LIGHT IS IN REACH.
--- NOTE | 2023-08-11 05:44 | NUR ---
0400 PT LYING IN BED, EYES CLOSED, APPEARS TO BE RESTING. WAKES EASILY TO VERBAL STIMULI. NO APPARENT SIGNS OF DISTRESS. CALL LIGHT IS IN REACH.
--- NOTE | 2023-08-11 05:45 | NUR ---
PT IS AAO X 4, PREVIOUS RN REPORTED SLIGHT CONFUSION, NONE SEEN BY ME YET. PT REPORTED NAUSEA, GOT ZOFRAN X 1. PT TO START GOLYTELY AT 0700 FOR COLONOSCOPY TODAY. K AND PHOS LOW, GOT K AND KPHOS REPLACEMENT, REDRAW WAS STILL LOW, GOT ANOTHER IVPB OF KPHOS. MORE LABS TO BE DRAWN THIS AM.
--- NOTE | 2023-08-11 05:47 | NUR ---
PT LYING IN BED, EYES CLOSED, APPEARS TO BE RESTING. BREATHING IS EVEN, UNLABORED. NO APPARENT SIGNS OF DISTRESS. CALL LIGHT IS IN REACH. NO OTHER CHANGES THIS SHIFT.
[2023-08-11 06:01] LABS: Albumin, Blood 1.2 g/dL (3.4-5.0); Albumin/Globulin Ratio 0.3 (0.8-1.8); Calcium, Blood 6.8 mg/dL (8.5-10.1); Creatinine, Blood 0.58 mg/dL (0.60-1.20); Globulin, Blood 3.7 g/dL (2.2-4.0); Magnesium, Blood 1.7 mg/dL (1.6-2.4); Phosphorus, Blood 2.9 mg/dL (2.5-4.9); Potassium, Blood 3.4 mmol/L (3.5-5.5); Total Protein, Blood 4.9 g/dL (6.4-8.2)
[2023-08-11 06:13] LABS: Hemoglobin 10.5 g/dL (13.5-17.5); Mean Corpuscular HGB 29.2 pg (26.0-34.0); Mean Corpuscular HGB Conc 33.9 g/dL (31.5-36.5); Mean Corpuscular Volume 86 fL (80-100); Mean Platelet Volume 9.4 fL (9.1-12.4); NRBC ABSOLUTE 0.04 K/mm3 (0.00-0.02); NRBC Auto 0.3 /100 WBC (0.0-0.2); Platelet Count 81 K/mm3 (150-400); RDW Coefficient Variation 15.4 % (11.7-14.2); Red Blood Cell Count 3.59 M/mm3 (4.30-5.90)
[2023-08-11 07:27] LABS: BAND PERCENT MAN 18 % (0-8); BASOPHILS PERCENT MAN 0 % (0-2); EOSINOPHILS PERCENT MAN 2 % (0-6); LYMPHOCYTES PERCENT MAN 19 % (21-46); MONOCYTES ABSOLUTE MAN 1.22 K/mm3 (0.16-1.47); MONOCYTES PERCENT MAN 8 % (4-13); NEUTROPHILS ABSOLUTE MAN 10.86 K/mm3 (1.96-9.15); SEG NEUTROPHILS PERCENT MAN 53 % (41-73); TOTAL CELLS COUNTED 100
[2023-08-11 08:51] VITALS: BP 137/83
--- NOTE | 2023-08-11 11:39 | NUR ---
PT REPORTS FINISHING THE GOLYTELY AT APPROX 10 AM TODAY. LAST BM IN TOILET IS YELLOW AND CLOUDY, ABLE TO SEE THROUGH TO THE BOTTOM OF THE TOILET. SPOKE WITH DAY SURGERY AND DR. BASS WHO GAVE AN ORDER FOR 2 ENEMAS.
[2023-08-11] MEDS ORDERED: ALBU90OI (13:36)
[2023-08-11] MEDS ORDERED: OMEP20ER (13:36)
[2023-08-11 15:09] VITALS: BP 135/72
--- NOTE | 2023-08-11 15:40 | NUR ---
08/11/23 1540 Kimi Irizarry History, Chart, Medications and Allergies reviewed before start of procedure.MONITOR INTACT WITH CONTINUOUS PULSE OXIMETRY, CONTINUOUS END TITAL CO2, AND INTERMITTENT BLOOD PRESSURE.3-LEAD EKG REVIEWED WITH PHYSICIAN PRIOR TO START OF PROCEDURE.O2 VIA N/C INTACT THROUGHOUT SEDATION/PROCEDURE.Bite Block Placed.ANESTHESIA PER DR. BOWERS.
[2023-08-11 16:19] VITALS: BP 138/82
[2023-08-11 19:40] VITALS: BP 136/88
--- NOTE | 2023-08-11 19:57 | NUR ---
SHIFT SUMMARY: SUNSHINE IS A&OX4. VSS, MAINTAINING SATS ORA. EXTERNAL JUGULAR IV PLACED BY ANESTHESIOLOGIST WHILE IN DAY SURGERY PER REPORT. PT CONTINUES TO HAVE LIQUID DIARRHEA WHICH HE STATES HAS BEEN ONGOING PRIOR TO ADMISSION. HE IS TOLERATING WATER AND ICE CHIPS WELL. HE IS INDEPENDENT TO THE BATHROOM. HE IS LYING IN BED WITH THE CALL LIGHT IN REACH. REPORT WAS GIVEN TO REGIONAL BRANCH MANAGER RN.
[2023-08-11 21:04] LABS: C-REACTIVE PROTEIN, EXT RANGE 5.15 mg/dL (0.000-0.300)
[2023-08-11 22:33] LABS: Adenovirus F 40/41 Not Detected (NOT DETECT); Astrovirus Not Detected (NOT DETECT); Campylobacter Sp Not Detected (NOT DETECT); Cryptosporidium Not Detected (NOT DETECT); Cyclospora Cayetanensis Not Detected (NOT DETECT); E. Coli O157 Not Detected (NOT DETECT); Entamoeba Histolytica Not Detected (NOT DETECT); Enteroaggregative E. coli-EAEC Not Detected (NOT DETECT); Enteropathogenic E. coli-EPEC Not Detected (NOT DETECT); Enterotoxigenic E. coli-ETEC Not Detected (NOT DETECT); Giardia Lamblia Not Detected (NOT DETECT); Norovirus GI/GII Not Detected (NOT DETECT); Plesiomonas Shigelloides Not Detected (NOT DETECT); Rotavirus A Not Detected (NOT DETECT); Salmonella Sp Not Detected (NOT DETECT); Sapovirus Not Detected (NOT DETECT); Shiga Toxin-prod E. coli-STEC Not Detected (NOT DETECT); Shigella/Enteroin E. coli-EIEC Not Detected (NOT DETECT); Vibrio Cholerae Not Detected (NOT DETECT); Vibrio Sp Not Detected (NOT DETECT); Yersinia Enterocolitica Not Detected (NOT DETECT)
[2023-08-12 01:03] LABS: Albumin, Blood 1.3 g/dL (3.4-5.0); Albumin/Globulin Ratio 0.4 (0.8-1.8); Bilirubin, Total 0.7 mg/dL (0.1-1.0); Bun/Creatinine Ratio 6.5 (12.0-20.0); Calcium, Blood 6.9 mg/dL (8.5-10.1); Creatinine, Blood 0.61 mg/dL (0.60-1.20); Globulin, Blood 3.7 g/dL (2.2-4.0); Potassium, Blood 2.9 mmol/L (3.5-5.5)
--- NOTE | 2023-08-12 04:26 | NUR ---
REPORT RECEIVED VERIFIED PT A/O NO C/O PAIN NO DISTRESS, COLONOSCOPY PROCEDURE WAS UNABLE TO BE FINISHED DUE TO PT AT RISK OF BLEEDING AND POSSIBLE ADHESION IN THE WAS WITH POOR PREP. AWAITING BLOOD BANK TO ARRANGE BLOOD BEFORE REPEAT COLONOSCOPY. DR BASS INTO SEE PT AND EXPLAIN ALL THIS, PT REPEATED UNDERSTANDING . PT C/O CRAMPING TO HANDS, STATED THIOS HAPPENED THE NIGHT BEFORE. I NOTIFIED MD, LABS WERE DRAWN AND MAG/ POT ORDERERD FOR INFUSION. RIGHT IJ IV INFUSING WELL.
[2023-08-12 04:47] VITALS: BP 133/69
[2023-08-12 05:20] LABS: Hematocrit 31.4 % (37.0-53.0); Hemoglobin 10.5 g/dL (13.5-17.5); Mean Corpuscular HGB Conc 33.4 g/dL (31.5-36.5); Mean Corpuscular Volume 87 fL (80-100); Mean Platelet Volume 9.4 fL (9.1-12.4); Platelet Count 105 K/mm3 (150-400); RDW Coefficient Variation 15.3 % (11.7-14.2); RDW Standard Deviation 48.1 fL (35.1-46.3); Red Blood Cell Count 3.62 M/mm3 (4.30-5.90); White Blood Cell Count 17.66 K/mm3 (4.00-11.30)
[2023-08-12 06:55] LABS: BAND PERCENT MAN 16 % (0-8); BASOPHILS PERCENT MAN 0 % (0-2); EOSINOPHILS ABSOLUTE MAN 1.05 K/mm3 (0.00-0.68); EOSINOPHILS PERCENT MAN 6 % (0-6); LYMPHOCYTES ABSOLUTE MAN 3.88 K/mm3 (0.84-5.20); LYMPHOCYTES PERCENT MAN 22 % (21-46); MONOCYTES ABSOLUTE MAN 1.76 K/mm3 (0.16-1.47); MONOCYTES PERCENT MAN 10 % (4-13); NEUTROPHILS ABSOLUTE MAN 10.94 K/mm3 (1.96-9.15); SEG NEUTROPHILS PERCENT MAN 46 % (41-73); TOTAL CELLS COUNTED 100
[2023-08-12 06:57] LABS: Albumin, Blood 1.3 g/dL (3.4-5.0); Albumin/Globulin Ratio 0.4 (0.8-1.8); Bun/Creatinine Ratio 5.2 (12.0-20.0); Calcium, Blood 6.9 mg/dL (8.5-10.1); Creatinine, Blood 0.58 mg/dL (0.60-1.20); Globulin, Blood 3.4 g/dL (2.2-4.0); Potassium, Blood 2.4 mmol/L (3.5-5.5); Total Protein, Blood 4.7 g/dL (6.4-8.2)
[2023-08-12 07:35] VITALS: BP 143/82
[2023-08-12 10:06] LABS: Phosphorus, Blood 1.4 mg/dL (2.5-4.9); Potassium, Blood 2.5 mmol/L (3.5-5.5)
[2023-08-12 15:17] LABS: Phosphorus, Blood 1.7 mg/dL (2.5-4.9)
[2023-08-12 15:52] VITALS: BP 131/84
--- NOTE | 2023-08-12 19:36 | NUR ---
SHIFT SUMMARY: SUNSHINE IS A&OX4. VSS, NO ACUTE EVENTS THIS SHIFT. ELECTROLYTES BEING REPLEATED. STAFF ATTEMPTED TO PLACE A POWERGLIDE, BUT WERE UNFORTUNATELY UNSUCCESSFUL. PT IS INDEPENDENT IN THE ROOM, REPORTS THAT WITH EACH BOWEL MOVEMENT HIS STOOL BECOMES MORE CLEAR. HE FINISHED THE GOLYTELY AT APPROX 1335 TODAY. HE IS CURRENTLY DRINKING WATER, AWARE THAT HE IS TO BE NPO AT 2300 FOR A COLONOSCOPY AT 0100. IV TO RIGHT JUGULAR PATENT. HE DID COMPLAIN OF PAIN FROM HEMMORHOIDS THIS SHIFT, DISCUSSED WITH HOSPITALIST AND MEDICATED PER NOV. HE IS LYING IN BED WITH THE CALL LIGHT IN REACH. REPORT WAS GIVEN TO IMPLEMENTATION ENGINEER RN.
[2023-08-12 20:02] VITALS: BP 145/79
[2023-08-12 21:36] LABS: Phosphorus, Blood 2.6 mg/dL (2.5-4.9); Potassium, Blood 2.8 mmol/L (3.5-5.5)
[2023-08-13 00:53] VITALS: BP 138/77
--- NOTE | 2023-08-13 01:20 | NUR ---
08/13/[address] BALDERAS; SEE ANESTHESIA RECORDS.
[2023-08-13 02:02] VITALS: BP 137/75
[2023-08-13 03:11] LABS: Hematocrit 33.3 % (37.0-53.0); Hemoglobin 11.2 g/dL (13.5-17.5); Mean Corpuscular HGB 29.1 pg (26.0-34.0); Mean Corpuscular HGB Conc 33.6 g/dL (31.5-36.5); Mean Corpuscular Volume 87 fL (80-100); Mean Platelet Volume 9.3 fL (9.1-12.4); Platelet Count 127 K/mm3 (150-400); RDW Coefficient Variation 15.6 % (11.7-14.2); RDW Standard Deviation 48.7 fL (35.1-46.3); Red Blood Cell Count 3.85 M/mm3 (4.30-5.90); White Blood Cell Count 17.12 K/mm3 (4.00-11.30)
[2023-08-13 03:33] LABS: Albumin, Blood 1.3 g/dL (3.4-5.0); Albumin/Globulin Ratio 0.4 (0.8-1.8); Bilirubin, Total 1.8 mg/dL (0.1-1.0); Bun/Creatinine Ratio 8.1 (12.0-20.0); Creatinine, Blood 0.74 mg/dL (0.60-1.20); Globulin, Blood 3.6 g/dL (2.2-4.0); Phosphorus, Blood 2.1 mg/dL (2.5-4.9); Potassium, Blood 2.8 mmol/L (3.5-5.5); Total Protein, Blood 4.9 g/dL (6.4-8.2)
[2023-08-13 04:11] LABS: Rubella Antibody, IgG 12.9 IU/mL (15-)
[2023-08-13 04:30] LABS: Percent Saturation 17.4 % (20.0-50.0)
--- NOTE | 2023-08-13 04:33 | NUR ---
PT DOING BETTER TODAY, PLAN FOR COLONOSCOPY AT 1AM. PT AWARE AND ONLY HAVING CLR LIQ, NO C/O PAIN. NEW IV STARTED TO RIGHT FOREARM WITH MUCH DIFFICULTY BUT IS NOW FUNCTIONING VERY WELL. MOTHER AT BEDSIDE AWAITING PROCEDURE. 1255 PT TAKEN DOWNSTAIRS BY TOW BOAT CAPTAIN. 0230 PT BACK IN ROOM DID VERY WELL SHABANA PROCEDURE. K+ REPLACEMENT VIA IV CAUSED A LOT OF PAIN SO K+ CHANGED TO PO AND PT SHABANA THAT VERY WELL. DR VILLAREAL INTO SEE PT AND SPEAK WITH PT AND MOTHER. PT NOW SLEEPING COMFORTABLY
[2023-08-13 05:36] LABS: BAND PERCENT MAN 11 % (0-8); BASOPHILS PERCENT MAN 0 % (0-2); EOSINOPHILS ABSOLUTE MAN 0.51 K/mm3 (0.00-0.68); EOSINOPHILS PERCENT MAN 3 % (0-6); LYMPHOCYTES ABSOLUTE MAN 2.22 K/mm3 (0.84-5.20); LYMPHOCYTES PERCENT MAN 13 % (21-46); METAMYELOCYTE ABSOLUTE MAN 0.17 K/mm3 (0.00-0.00); METAMYELOCYTE PERCENT MAN 1 % (0-0); MONOCYTES ABSOLUTE MAN 1.02 K/mm3 (0.16-1.47); MONOCYTES PERCENT MAN 6 % (4-13); NEUTROPHILS ABSOLUTE MAN 13.18 K/mm3 (1.96-9.15); SEG NEUTROPHILS PERCENT MAN 66 % (41-73); TOTAL CELLS COUNTED 100
[2023-08-13 07:21] VITALS: BP 139/73
[2023-08-13 11:54] LABS: Source, Urine Clean Catch
[2023-08-13 11:57] LABS: Appearance, Urine Clear (Clear); Bilirubin, Urine Neg (Neg); Blood, Urine Neg (Neg); Color, Urine Yellow (P-Yellow); Glucose Qualitative, Urine Neg (Neg); Ketones, Urine Neg (Neg); Leukocyte Esterase, Urine Neg (Neg); Nitrite, Urine Neg (Neg); Protein, Urine 1+ (Neg); Specific Gravity, Urine 1.015 (1.003-1.022); Urobilinogen, Urine NORM (Normal)
[2023-08-13 15:09] VITALS: BP 148/81
--- NOTE | 2023-08-13 16:56 | NUR ---
DAYSHIFT SUMMARY Patient alert & oriented X4. IV Calcium gluconate & IV potassium administred. Patient reporting muscle cramps in hands. Vitals stable, Will continue plan of care.
[2023-08-13 17:52] LABS: Magnesium, Blood 1.5 mg/dL (1.6-2.4); Phosphorus, Blood 2.5 mg/dL (2.5-4.9); Potassium, Blood 3.7 mmol/L (3.5-5.5)
[2023-08-13 19:37] VITALS: BP 144/86
[2023-08-14 02:10] VITALS: BP 152/90
--- NOTE | 2023-08-14 05:01 | NUR ---
A&O X4. MAGNESIUM AND POTASSIUM GIVEN LAST NIGHT. NO C/O PAIN. INDEPENDENT IN ROOM. CALL LIGHT WITHIN REACH. BED IN LOW POSITION.
[2023-08-14 06:00] LABS: Hematocrit 32.8 % (37.0-53.0); Mean Corpuscular HGB 29.3 pg (26.0-34.0); Mean Corpuscular HGB Conc 33.5 g/dL (31.5-36.5); Mean Corpuscular Volume 87 fL (80-100); Mean Platelet Volume 8.8 fL (9.1-12.4); Platelet Count 169 K/mm3 (150-400); RDW Coefficient Variation 15.6 % (11.7-14.2); RDW Standard Deviation 49.1 fL (35.1-46.3); Red Blood Cell Count 3.76 M/mm3 (4.30-5.90); White Blood Cell Count 20.71 K/mm3 (4.00-11.30)
[2023-08-14 06:22] LABS: Albumin, Blood 1.3 g/dL (3.4-5.0); Albumin/Globulin Ratio 0.3 (0.8-1.8); Bilirubin, Total 1.2 mg/dL (0.1-1.0); Bun/Creatinine Ratio 8.6 (12.0-20.0); Calcium, Blood 7.9 mg/dL (8.5-10.1); Creatinine, Blood 0.7 mg/dL (0.60-1.20); Globulin, Blood 3.9 g/dL (2.2-4.0); Phosphorus, Blood 1.9 mg/dL (2.5-4.9); Potassium, Blood 4.2 mmol/L (3.5-5.5); Total Protein, Blood 5.2 g/dL (6.4-8.2)
[2023-08-14 06:26] LABS: BAND PERCENT MAN 17 % (0-8); BASOPHILS PERCENT MAN 1 % (0-2); EOSINOPHILS PERCENT MAN 0 % (0-6); LYMPHOCYTES PERCENT MAN 6 % (21-46); METAMYELOCYTE PERCENT MAN 2 % (0-0); MONOCYTES PERCENT MAN 6 % (4-13); SEG NEUTROPHILS PERCENT MAN 68 % (41-73); TOTAL CELLS COUNTED 100
[2023-08-14 06:29] LABS: EOSINOPHILS ABSOLUTE AUTO 0.02 K/mm3 (0.00-0.68); EOSINOPHILS PERCENT AUTO 0 % (0-6); IMMATURE GRAN ABSOLUTE AUTO 0.23 K/mm3 (0.00-0.10); IMMATURE GRAN PERCENT AUTO 1 % (0-1); NEUTROPHILS ABSOLUTE AUTO 16.04 K/mm3 (1.96-9.15); NEUTROPHILS PERCENT AUTO 78 % (41-73)
[2023-08-14 07:37] VITALS: BP 145/95
--- NOTE | 2023-08-14 15:30 | NUR ---
SHIFT SUMMARY PT RESTING QUIETLY AT START OF SHIFT. UP INDEPENDENTLY IN RM AND TO BTHRM. PT UP TO SHOWER AFTER BREAKFAST. DR SMITH IN TO SEE PT EARLY AND LATER DR BASS A COUPLE OF TIMES WAITING FOR PT TO FINISH IN BTHRM. PT REPORTING POSSIBLE D/C TO HOME ON WEDNESDAY AND F/U WITH DR BASS OUTPT. NO C/O. DENIED FURTHER NEEDS AT THIS TIME. CALL LT IN REACH. ABLE TO MAKE NEEDS KNOWN.
[2023-08-14 15:35] VITALS: BP 140/89
[2023-08-14 20:41] VITALS: BP 146/87
[2023-08-15 01:30] LABS: Hematocrit 33.1 % (37.0-53.0); Hemoglobin 10.7 g/dL (13.5-17.5); Mean Corpuscular HGB Conc 32.3 g/dL (31.5-36.5); Mean Corpuscular Volume 90 fL (80-100); Mean Platelet Volume 9.1 fL (9.1-12.4); Platelet Count 187 K/mm3 (150-400); RDW Coefficient Variation 15.7 % (11.7-14.2); RDW Standard Deviation 51.3 fL (35.1-46.3); Red Blood Cell Count 3.69 M/mm3 (4.30-5.90); White Blood Cell Count 22.92 K/mm3 (4.00-11.30)
[2023-08-15 01:45] LABS: Magnesium, Blood 1.7 mg/dL (1.6-2.4); Phosphorus, Blood 2.3 mg/dL (2.5-4.9)
[2023-08-15 01:55] LABS: BAND PERCENT MAN 13 % (0-8); BASOPHILS PERCENT MAN 0 % (0-2); EOSINOPHILS PERCENT MAN 0 % (0-6); LYMPHOCYTES ABSOLUTE MAN 0.68 K/mm3 (0.84-5.20); LYMPHOCYTES PERCENT MAN 3 % (21-46); MONOCYTES ABSOLUTE MAN 2.06 K/mm3 (0.16-1.47); MONOCYTES PERCENT MAN 9 % (4-13); NEUTROPHILS ABSOLUTE MAN 20.16 K/mm3 (1.96-9.15); SEG NEUTROPHILS PERCENT MAN 75 % (41-73); TOTAL CELLS COUNTED 100
[2023-08-15 01:58] LABS: Bun/Creatinine Ratio 11.4 (12.0-20.0); Calcium, Blood 7.9 mg/dL (8.5-10.1); Creatinine, Blood 0.7 mg/dL (0.60-1.20); Potassium, Blood 5.2 mmol/L (3.5-5.5)
[2023-08-15 04:07] VITALS: BP 146/85
--- NOTE | 2023-08-15 04:43 | NUR ---
NOC SHIFT SUMMARY: PT. HERE FOR IV STEROIDS TO HELP WITH NEW DX OF CROHN'S COLITIS. PT. TO BE DISCHARGED HOME WEDNESDAY. INDEPENDENT IN ROOM. NO C/O PAIN. BED IN LOW POSITION. CALL LIGHT WITHIN REACH.
[2023-08-15 06:03] LABS: CALPROTECTIN,FECAL >3000 ug/g (<=49)
[2023-08-15 07:20] VITALS: BP 141/87
[2023-08-15 10:56] LABS: EBV AB TO EARLY (D) AG IGG >150.0 U/mL (0.0-10.9); EBV AB TO VIRAL CAPSID AG IGG >750.0 U/mL (0.0-21.9); EBV AB TO VIRAL CAPSID AG IGM 12.7 U/mL (0.0-43.9); EBV ANTIBODY TO NUCLEAR AG IGG >600.0 U/mL (0.0-21.9)
[2023-08-15 15:41] VITALS: BP 139/88
--- NOTE | 2023-08-15 16:46 | NUR ---
SHIFT SUMMARY PT RESTING QUIETLY AT START OF SHIFT. WOKE EASILY FOR CARE. UP TO EOB FOR BREAKFAST. INDEPENDENT IN RM AND TO BTHRM. NO C/O PAIN. PT REPORTED HOPING TO BE D/C'D IN AM HE HAS AN APPOINTMENT WITH DR BASS AT NOON. PT TO D/C AFTER IV STEROIDS IN AM. PT DENIED FURTHER NEEDS. CALL LT IN REACH.
[2023-08-15 20:48] VITALS: BP 145/86
[2023-08-16 06:23] LABS: Hematocrit 37.2 % (37.0-53.0); Hemoglobin 11.5 g/dL (13.5-17.5); LYMPHOCYTES ABSOLUTE AUTO 1.87 K/mm3 (0.84-5.20); LYMPHOCYTES PERCENT AUTO 8 % (21-46); MONOCYTES ABSOLUTE AUTO 2.28 K/mm3 (0.16-1.47); MONOCYTES PERCENT AUTO 10 % (4-13); Mean Corpuscular HGB 29.1 pg (26.0-34.0); Mean Corpuscular HGB Conc 30.9 g/dL (31.5-36.5); Mean Corpuscular Volume 94 fL (80-100); Mean Platelet Volume 9.4 fL (9.1-12.4); NRBC ABSOLUTE 0.02 K/mm3 (0.00-0.02); NRBC Auto 0.1 /100 WBC (0.0-0.2); Platelet Count 169 K/mm3 (150-400); RDW Coefficient Variation 16.1 % (11.7-14.2); RDW Standard Deviation 54.7 fL (35.1-46.3); Red Blood Cell Count 3.95 M/mm3 (4.30-5.90)
[2023-08-16 06:27] LABS: BASOPHILS ABSOLUTE AUTO 0.04 K/mm3 (0.00-0.23); BASOPHILS PERCENT AUTO 0 % (0-2); EOSINOPHILS ABSOLUTE AUTO 0.09 K/mm3 (0.00-0.68); EOSINOPHILS PERCENT AUTO 0 % (0-6); IMMATURE GRAN ABSOLUTE AUTO 0.32 K/mm3 (0.00-0.10); IMMATURE GRAN PERCENT AUTO 1 % (0-1); NEUTROPHILS PERCENT AUTO 80 % (41-73)
[2023-08-16 06:54] LABS: Bun/Creatinine Ratio 17.5 (12.0-20.0); Calcium, Blood 8.3 mg/dL (8.5-10.1); Creatinine, Blood 0.63 mg/dL (0.60-1.20); Phosphorus, Blood 2.7 mg/dL (2.5-4.9); Potassium, Blood 5.5 mmol/L (3.5-5.5)
[2023-08-16 07:20] VITALS: BP 144/81
--- NOTE | 2023-08-16 07:46 | NUR ---
SHIFT SUMMARY SUNSHINE BARNETT IS ALERT AND FULLY ORIENTED ON ASSESSMENT. HE IS INDEPENDENT IN HIS ROOM, AND IS DENYING SOB, C/P/PRESSURE. NO COMPLAINTS AND NO ACUTE EVENTS TONIGHT. PER PT HE IS STILL MAKING MULTIPLE TRIPS TO THE BATHROOM FOR BMS PER SHIFT. HE CLAIMS THAT HE HAS TAKEN GOLYTLY BEFORE AND THAT IT TOOK A WEEK OR LONGER FOR THE DIARRHEA TO SUBSIDE. HE STATES THAT HE IS STARTING TO HAVE SOME SOLID WASTE WITH BMS TODAY. AT AROUND 0430 PT BEGAN COMPLAINING OF INCREASING ABD PAIN, RELIEF WAS ACHIEVED WITH ZOFRAN AND TYLENOL. PT IN BED AT A LOW POSITION WITH CALL LIGHT IN REACH.
[2023-08-16] MEDS ORDERED: PRED20 PO (10:52)
--- NOTE | 2023-08-16 11:32 | NUR ---
PATIENT DISCHARGED HOME WITH FAMILY. DC INSTRUCTIONS AND EDUCATION DISCUSSED WITH PATIENT AND COPY PROVIDED. PATIENT TO FOLLOW UP WITH DR BASS AT 12:00 TODAY. PATIENT DENIES ANY FURTHER QUESTIONS OR CONCERNS.
[2023-08-16 17:53] LABS: QUANTIFERON MITOGEN MINUS NIL 0.05 IU/mL; QUANTIFERON NIL 0.04 IU/mL; QUANTIFERON TB GOLD PLUS Indeterminate (Negative)
== END 2023-08-16 11:30 | disposition home or self-care (01) | DRG 386 ==
LOC: ER 11:34 → MEDS 20:35 → ENPENDDIS 08-16 08:38 → MEDS 08-16 11:30
PROVIDERS: Internal Medicine; Internal Medicine Gastroenterology; Student in an Organized Health Care Education/Training Program; ADMIT Internal Medicine
PROC: 3E02340 Introduction of Influenza Vaccine into Muscle, Percutaneous Approach (ICD-10-PCS; 2023-08-10)
PROC: 0DJ08ZZ Inspection of Upper Intestinal Tract, Via Natural or Artificial Opening Endoscopic (ICD-10-PCS; principal; 2023-08-11 15:30)
PROC: 0DJD8ZZ Inspection of Lower Intestinal Tract, Via Natural or Artificial Opening Endoscopic (ICD-10-PCS; 2023-08-11 15:30)
PROC: 0DBE8ZX Excision of Large Intestine, Via Natural or Artificial Opening Endoscopic, Diagnostic (ICD-10-PCS; 2023-08-13)
DX: K51.911 Ulcerative colitis, unspecified with rectal bleeding (principal); D62 Acute posthemorrhagic anemia; K76.6 Portal hypertension; E87.1 Hypo-osmolality and hyponatremia; K92.1 Melena; I85.00 Esophageal varices without bleeding; K51.90 Ulcerative colitis, unspecified, without complications; K52.9 Noninfective gastroenteritis and colitis, unspecified; K31.89 Other diseases of stomach and duodenum; K76.82 Hepatic encephalopathy; K70.31 Alcoholic cirrhosis of liver with ascites; E66.01 Morbid (severe) obesity due to excess calories; F10.20 Alcohol dependence, uncomplicated; E87.6 Hypokalemia; E88.09 Other disorders of plasma-protein metabolism, not elsewhere classified; D72.829 Elevated white blood cell count, unspecified; K64.4 Residual hemorrhoidal skin tags; E83.30 Disorder of phosphorus metabolism, unspecified; E83.51 Hypocalcemia; Z87.891 Personal history of nicotine dependence; Z68.33 Body mass index [BMI] 33.0-33.9, adult; Z71.41 Alcohol abuse counseling and surveillance of alcoholic; Z23 Encounter for immunization
CPT/HCPCS: 0241U; 36415; 70450; 71046; 74018; 74177; 80048; 80053; 81003; 82140; 82272; 82306; 82330; 82607; 82728; 82746; 82947; 83540; 83550; 83605; 83690; 83735; 83993; 84075; 84100; 84132; 85025; 85610; 85730; 86140; 86480; 86663; 86664; 86665; 86735; 86762; 86765; 86787; 86850; 86900; 86901; 86922; 87040; 87507; 88305; 93005; 93010; 96365-59; 96366; 96367; 96368; 96376; 99285-25; A9270; C9113; J0612; J0696; J2405; J2704; J2920; J3475; J3480; J7030; J7040; J7050; J7060; J7120; Q9967

== ENCOUNTER 2023-08-19 18:42 | Inpatient (IN) | payer OTHER ==
[~2023-08-19] VITALS: Ht 182.9 cm; Wt 107.5 kg
[~2023-08-19 18:42] MED LIST changes: +ALBU90OI; +OMEP20ER; +PRED20 PO
[2023-08-19 19:13] LABS: Hemoglobin 10.8 g/dL (13.5-17.5); Mean Corpuscular HGB 28.4 pg (26.0-34.0); Mean Corpuscular HGB Conc 31.8 g/dL (31.5-36.5); Mean Corpuscular Volume 90 fL (80-100); Mean Platelet Volume 8.9 fL (9.1-12.4); NRBC ABSOLUTE 0.08 K/mm3 (0.00-0.02); NRBC Auto 0.4 /100 WBC (0.0-0.2); Platelet Count 146 K/mm3 (150-400); RDW Coefficient Variation 15.7 % (11.7-14.2); RDW Standard Deviation 50.7 fL (35.1-46.3); White Blood Cell Count 20.54 K/mm3 (4.00-11.30)
[2023-08-19 19:34] LABS: Source, Urine Clean Catch
[2023-08-19 19:35] LABS: Alanine Aminotransfer (ALT/SGP 66 U/L (12-78); Albumin, Blood 1.4 g/dL (3.4-5.0); Albumin/Globulin Ratio 0.3 (0.8-1.8); Alk Phos 263 U/L (50-136); Anion Gap 3 mmol/L (6-16); Aspartate Aminotrans (AST/SGOT 85 U/L (12-37); Bilirubin, Total 1.4 mg/dL (0.1-1.0); Blood Urea Nitrogen 35 mg/dL (8-24); Bun/Creatinine Ratio 32.1 (12.0-20.0); CO2, Blood 34 mmol/L (21-32); Calcium, Blood 8.1 mg/dL (8.5-10.1); Chloride, Blood 93 mmol/L (98-108); Creatinine, Blood 1.09 mg/dL (0.60-1.20); Globulin, Blood 4.2 g/dL (2.2-4.0); Glomerular Filtration Rate 85 (60-); Glucose, Blood 172 mg/dL (70-99); Sodium, Blood 130 mmol/L (136-145); Total Protein, Blood 5.6 g/dL (6.4-8.2)
[2023-08-19 19:39] LABS: BAND PERCENT MAN 37 % (0-8); BASOPHILS PERCENT MAN 0 % (0-2); EOSINOPHILS PERCENT MAN 0 % (0-6); LYMPHOCYTES ABSOLUTE MAN 0.82 K/mm3 (0.84-5.20); LYMPHOCYTES PERCENT MAN 4 % (21-46); MONOCYTES ABSOLUTE MAN 0.61 K/mm3 (0.16-1.47); MONOCYTES PERCENT MAN 3 % (4-13); SEG NEUTROPHILS PERCENT MAN 57 % (41-73); TOTAL CELLS COUNTED 200
[2023-08-19] MEDS ORDERED: ALBU90OI INH (19:40)
[2023-08-19] MEDS ORDERED: MELA3 PO (19:40)
[2023-08-19 19:42] LABS: Appearance, Urine Clear (Clear); Bilirubin, Urine Neg (Neg); Blood, Urine Neg (Neg); Color, Urine Yellow (P-Yellow); Glucose Qualitative, Urine Neg (Neg); Ketones, Urine Neg (Neg); Leukocyte Esterase, Urine Neg (Neg); Nitrite, Urine Neg (Neg); Protein, Urine 1+ (Neg); Specific Gravity, Urine 1.015 (1.003-1.022); Urobilinogen, Urine 1+ (Normal)
[2023-08-19 23:06] LABS: Acetaminophen, Random 4.7 ug/mL (10.0-30.0); Ethanol (Alcohol), Blood, Med <3 mg/dL; Salicylate <1.7 mg/dL (2.8-20.0); Uric Acid, Blood 4.2 mg/dL (3.5-7.2)
[2023-08-19 23:16] LABS: Base Excess Venous 9.5 mmol/L; Bicarbonate Venous 32.4 mmol/L (24.0-30.0); PCO2 Venous 40.9 mmHg (38-42); pH Blood Venous 7.51 (7.34-7.37)
[2023-08-19 23:20] LABS: U Amphetamine Screen Not Detected; U Barbituate Screen Not Detected; U Benzodiazapine Screen Not Detected; U Buprenorphine Screen DETECTED; U Cannabinoids Screen DETECTED; U Cocaine Screen Not Detected; U Methadone Screen Not Detected; U Methamphetamine Screen Not Detected; U Opiates Screen Not Detected; U Oxycodone Screen Not Detected; U Phencyclidine Screen Not Detected
[2023-08-20 04:01] LABS: Automated BF WBC Count 2.845 K/mm3 (0-999)
[2023-08-20 04:05] LABS: Lactate Dehydrogenase, Body Fl 41 U/L; Protein, Body Fluid 0.2 g/dL
[2023-08-20 04:23] LABS: Body Fluid WBC Count 2845 /mm3 (0-999)
[2023-08-20 04:54] LABS: BASOPHILS ABSOLUTE AUTO 0.07 K/mm3 (0.00-0.23); BASOPHILS PERCENT AUTO 0 % (0-2); Hematocrit 30.9 % (37.0-53.0); Hemoglobin 10.1 g/dL (13.5-17.5); LYMPHOCYTES ABSOLUTE AUTO 2.04 K/mm3 (0.84-5.20); LYMPHOCYTES PERCENT AUTO 11 % (21-46); MONOCYTES ABSOLUTE AUTO 1.85 K/mm3 (0.16-1.47); MONOCYTES PERCENT AUTO 10 % (4-13); Mean Corpuscular HGB 28.8 pg (26.0-34.0); Mean Corpuscular HGB Conc 32.7 g/dL (31.5-36.5); Mean Corpuscular Volume 88 fL (80-100); Mean Platelet Volume 8.8 fL (9.1-12.4); NRBC ABSOLUTE 0.05 K/mm3 (0.00-0.02); NRBC Auto 0.3 /100 WBC (0.0-0.2); Platelet Count 132 K/mm3 (150-400); RDW Coefficient Variation 15.8 % (11.7-14.2); RDW Standard Deviation 49.9 fL (35.1-46.3); Red Blood Cell Count 3.51 M/mm3 (4.30-5.90); White Blood Cell Count 18.47 K/mm3 (4.00-11.30)
[2023-08-20 05:03] LABS: RBC Count, Body Fluid 410 /mm3 (0-0)
[2023-08-20 05:06] LABS: Total Cell Count, Body Fluid 100
[2023-08-20 05:07] LABS: Appearance, Body Fluid Cloudy (Clear); Color, Body Fluid L Yellow (None-Yellow)
[2023-08-20 05:08] LABS: International Normalized Ratio 1.41; Prothrombin Time Results 14.5 Sec (9.7-11.5)
[2023-08-20 05:13] LABS: Albumin, Blood 1.9 g/dL (3.4-5.0); Albumin/Globulin Ratio 0.5 (0.8-1.8); Bilirubin, Total 1.5 mg/dL (0.1-1.0); Bun/Creatinine Ratio 33.9 (12.0-20.0); Calcium, Blood 8.1 mg/dL (8.5-10.1); Creatinine, Blood 0.97 mg/dL (0.60-1.20); Globulin, Blood 3.8 g/dL (2.2-4.0); Potassium, Blood 4.8 mmol/L (3.5-5.5); Total Protein, Blood 5.7 g/dL (6.4-8.2)
[2023-08-20 05:16] LABS: EOSINOPHILS ABSOLUTE AUTO 0.02 K/mm3 (0.00-0.68); EOSINOPHILS PERCENT AUTO 0 % (0-6); IMMATURE GRAN ABSOLUTE AUTO 0.12 K/mm3 (0.00-0.10); IMMATURE GRAN PERCENT AUTO 1 % (0-1); NEUTROPHILS ABSOLUTE AUTO 14.37 K/mm3 (1.96-9.15); NEUTROPHILS PERCENT AUTO 78 % (41-73)
--- NOTE | 2023-08-20 06:47 | NUR ---
ADMISSION PT ADMITTED. MOTHER AT BEDSIDE. MOTHER HELPFUL IN FINISHING ADMISSION PACKET. PT ALERT BUT LETHARGIC. FOLLOWING SOME COMMANDS BUT MOSTLY SLEEPING. VSS. IN ST 100'S. MILD HTN. PT CLEANED. POST PARACENTESIS SITE COVERED WITH 4X4'S. ASSESMENT COMPLETED. PT RESTING POST ASSESMENT. WITHOUT NEEDS AT THIS TIME THAT HAVE BEEN STATED. BED ALARM ON. BED IN LOW POSITION. CALL LIGHT WITHIN REACH.
[2023-08-20 08:01] VITALS: BP 162/98
--- NOTE | 2023-08-20 09:48 | NUR ---
CARE ASSUMPTION this rn assumed care at 0700. blood pressure hypertensive, morning meds given. other vitals stable. tele sinus tach 104. patient is lethargic and responds to verbal stimuli, able to follow directions, and has moments of clarity. oriented to person, place, and self. patient reports no chest pain/pressure, shortness of breath or pain. see shift assessment for further detials. patient left for paracentesis at 0930. plan of care up to date
--- NOTE | 2023-08-20 10:44 | NUR ---
return patient returned to room. vitals done
[2023-08-20 11:14] VITALS: BP 138/85
[2023-08-20 15:14] VITALS: BP 139/85
--- NOTE | 2023-08-20 18:08 | NUR ---
shift summary patient vitals stable. patient has had multiple bowel movements this shift. patient does not call and will just try to get out of bed. bed alarm is on. mom in to see patient and updated on plan of care by md farooq. md farooq talked to md garcia and ordered to infuse albumin. albumin infusing. no acute changes. see previous notes. plan of care is up to date.
[2023-08-20 18:53] VITALS: BP 145/75
[2023-08-20 23:32] VITALS: BP 146/81
[2023-08-21] VITALS (7 sets, daily range): BP systolic 136–180; BP diastolic 77–101
[2023-08-21 04:32] LABS: BASOPHILS ABSOLUTE AUTO 0.03 K/mm3 (0.00-0.23); BASOPHILS PERCENT AUTO 0 % (0-2); Hematocrit 26.6 % (37.0-53.0); Hemoglobin 8.3 g/dL (13.5-17.5); LYMPHOCYTES ABSOLUTE AUTO 1.46 K/mm3 (0.84-5.20); LYMPHOCYTES PERCENT AUTO 14 % (21-46); MONOCYTES ABSOLUTE AUTO 0.79 K/mm3 (0.16-1.47); MONOCYTES PERCENT AUTO 8 % (4-13); Mean Corpuscular HGB 28.1 pg (26.0-34.0); Mean Corpuscular HGB Conc 31.2 g/dL (31.5-36.5); Mean Corpuscular Volume 90 fL (80-100); Mean Platelet Volume 8.6 fL (9.1-12.4); NRBC ABSOLUTE 0.03 K/mm3 (0.00-0.02); NRBC Auto 0.3 /100 WBC (0.0-0.2); Platelet Count 67 K/mm3 (150-400); RDW Coefficient Variation 15.8 % (11.7-14.2); RDW Standard Deviation 51.9 fL (35.1-46.3); Red Blood Cell Count 2.95 M/mm3 (4.30-5.90); White Blood Cell Count 10.12 K/mm3 (4.00-11.30)
[2023-08-21 04:37] LABS: EOSINOPHILS ABSOLUTE AUTO 0.02 K/mm3 (0.00-0.68); EOSINOPHILS PERCENT AUTO 0 % (0-6); IMMATURE GRAN ABSOLUTE AUTO 0.05 K/mm3 (0.00-0.10); IMMATURE GRAN PERCENT AUTO 1 % (0-1); NEUTROPHILS ABSOLUTE AUTO 7.77 K/mm3 (1.96-9.15); NEUTROPHILS PERCENT AUTO 77 % (41-73)
[2023-08-21 04:44] LABS: International Normalized Ratio 1.52; Prothrombin Time Results 15.6 Sec (9.7-11.5)
[2023-08-21 04:49] LABS: Albumin, Blood 2.6 g/dL (3.4-5.0); Albumin/Globulin Ratio 0.9 (0.8-1.8); Bilirubin, Total 1.5 mg/dL (0.1-1.0); Bun/Creatinine Ratio 32.2 (12.0-20.0); Calcium, Blood 8.4 mg/dL (8.5-10.1); Creatinine, Blood 0.68 mg/dL (0.60-1.20); Globulin, Blood 2.9 g/dL (2.2-4.0); Potassium, Blood 3.7 mmol/L (3.5-5.5); Total Protein, Blood 5.5 g/dL (6.4-8.2)
--- NOTE | 2023-08-21 05:51 | NUR ---
SHIFT SUMMARY MENTATION GREATLY IMPROVED. LARGE AMOUNT OF BM'S AT BEGINNING OF SHIFT AND CONTINUED T/O, HELD 2100 LACTULOSE DOSE FOR THIS REASON. PT MAKING ALL NEEDS KNOWN, HAS PRESENTED ONYL SLIGHTLY LETHARGIC AT TIMES BUT WAKES IMMEDIATELY WITH [employer]. PT TOLERATING PO LIQUIDS WELL. ADB PAIN DECREASING, REQUIRING LESS PAON MEDS. PT OOB MULTIPLE TIMES THIS SHIFT W/O INCIDENT. OTHERWISE, PT RESTING AND USING CALL LIGHT APPROPRIATE. BED ALARM ON A PRECAUTION.
[2023-08-21 14:16] LABS: BASOPHILS ABSOLUTE AUTO 0.03 K/mm3 (0.00-0.23); BASOPHILS PERCENT AUTO 0 % (0-2); Hematocrit 25.9 % (37.0-53.0); Hemoglobin 8.2 g/dL (13.5-17.5); LYMPHOCYTES ABSOLUTE AUTO 0.62 K/mm3 (0.84-5.20); LYMPHOCYTES PERCENT AUTO 6 % (21-46); MONOCYTES ABSOLUTE AUTO 0.56 K/mm3 (0.16-1.47); MONOCYTES PERCENT AUTO 6 % (4-13); Mean Corpuscular HGB 28.5 pg (26.0-34.0); Mean Corpuscular HGB Conc 31.7 g/dL (31.5-36.5); Mean Corpuscular Volume 90 fL (80-100); Mean Platelet Volume 8.9 fL (9.1-12.4); NRBC ABSOLUTE 0.02 K/mm3 (0.00-0.02); NRBC Auto 0.2 /100 WBC (0.0-0.2); Platelet Count 67 K/mm3 (150-400); RDW Coefficient Variation 15.9 % (11.7-14.2); RDW Standard Deviation 52.3 fL (35.1-46.3); Red Blood Cell Count 2.88 M/mm3 (4.30-5.90); White Blood Cell Count 10.03 K/mm3 (4.00-11.30)
[2023-08-21 14:36] LABS: EOSINOPHILS PERCENT AUTO 0 % (0-6); IMMATURE GRAN ABSOLUTE AUTO 0.08 K/mm3 (0.00-0.10); IMMATURE GRAN PERCENT AUTO 1 % (0-1); NEUTROPHILS ABSOLUTE AUTO 8.74 K/mm3 (1.96-9.15); NEUTROPHILS PERCENT AUTO 87 % (41-73)
[2023-08-21 14:52] LABS: BAND PERCENT MAN 5 % (0-8); BASOPHILS PERCENT MAN 0 % (0-2); EOSINOPHILS PERCENT MAN 0 % (0-6); LYMPHOCYTES PERCENT MAN 5 % (21-46); MONOCYTES PERCENT MAN 2 % (4-13); NEUTROPHILS ABSOLUTE MAN 9.32 K/mm3 (1.96-9.15); SEG NEUTROPHILS PERCENT MAN 88 % (41-73); TOTAL CELLS COUNTED 100
--- NOTE | 2023-08-21 18:13 | NUR ---
shift summary this rn assumed care at 0700. vital signs stable and have remained stable throughout the shift. patient tele sr/st. patient is alert and oriented x4. perrla. patient is able to make needs known and uses call light appropriately. patient mentation has improved greatly since yesterday, when this rn had the patient. patient has been independent in the room and informs this staff when having bowel movements and urinating. patient has had multiple bowel movements that are maroon appearance and multiple unmeasured voids. patient has crohns disease. see shift assessment for further detials. md bonds in to see patient and discussed plan of care. family in room most of the day visiting with the patient.
[2023-08-22] VITALS (13 sets, daily range): BP systolic 127–152; BP diastolic 67–82
[2023-08-22 04:13] LABS: Hematocrit 23.2 % (37.0-53.0); Hemoglobin 7.2 g/dL (13.5-17.5); Mean Corpuscular HGB 28.1 pg (26.0-34.0); Mean Corpuscular Volume 91 fL (80-100); Mean Platelet Volume 9.6 fL (9.1-12.4); NRBC ABSOLUTE 0.02 K/mm3 (0.00-0.02); NRBC Auto 0.2 /100 WBC (0.0-0.2); Platelet Count 56 K/mm3 (150-400); RDW Coefficient Variation 15.9 % (11.7-14.2); RDW Standard Deviation 52.8 fL (35.1-46.3); Red Blood Cell Count 2.56 M/mm3 (4.30-5.90); White Blood Cell Count 9.69 K/mm3 (4.00-11.30)
--- NOTE | 2023-08-22 04:33 | NUR ---
SHIFT SUMMARY. PT HAS BEEN DOING VERY WELL THIS SHIFT. AOX4, PLEASANT, COOPERATIVE WITH CARE. INDEPENDENT WITHIN ROOM. CALLS APPROPRIATELY FOR ASSISTANCE. PT HAD SOME PAIN EARLY THIS MORNING THAT WAS WELL MANAGED VIA PRN FENTANYL, NO PAIN REPORTED SINCE. PT HAS HAD MULTIPLE BMs THUS FAR THIS SHIFT AND INFORMS STAFF UPON HAVING THEM FOR CHARTING PURPOSES. SOME MINOR BLOOD REPORTED IN STOOL, LIKELY RELATED TO NEW DX CROHN'S. WORTH NOTING HGB THIS MORNING WAS 7.2, HGB HAS SLOWLY BEEN TRENDING DOWN SINCE ADMISSION. WILL ENSURE DAY SHIFT RN IS AWARE. PT HAS HAD NO OTHER COMPLAINTS THUS FAR THIS SHIFT. ABX ADMINISTERED ON SCHEDULE AND WITHOUT DIFFICULTY. BED LOCKED IN LOWEST POSITION. CALL LIGHT LEFT WITHIN REACH. CONTINUING TO MONITOR.
[2023-08-22 04:36] LABS: Albumin/Globulin Ratio 1.2 (0.8-1.8); Bilirubin, Total 1.2 mg/dL (0.1-1.0); Bun/Creatinine Ratio 20.4 (12.0-20.0); Calcium, Blood 8.8 mg/dL (8.5-10.1); Creatinine, Blood 0.59 mg/dL (0.60-1.20); Globulin, Blood 2.4 g/dL (2.2-4.0); Potassium, Blood 3.4 mmol/L (3.5-5.5); Total Protein, Blood 5.4 g/dL (6.4-8.2)
[2023-08-22 06:47] LABS: BAND PERCENT MAN 6 % (0-8); BASOPHILS PERCENT MAN 0 % (0-2); EOSINOPHILS ABSOLUTE MAN 0.09 K/mm3 (0.00-0.68); EOSINOPHILS PERCENT MAN 1 % (0-6); LYMPHOCYTES ABSOLUTE MAN 2.13 K/mm3 (0.84-5.20); LYMPHOCYTES PERCENT MAN 22 % (21-46); MONOCYTES ABSOLUTE MAN 0.48 K/mm3 (0.16-1.47); MONOCYTES PERCENT MAN 5 % (4-13); MYELOCYTE ABSOLUTE MAN 0.09 K/mm3 (0.00-0.00); MYELOCYTE PERCENT MAN 1 % (0-0); NEUTROPHILS ABSOLUTE MAN 6.87 K/mm3 (1.96-9.15); SEG NEUTROPHILS PERCENT MAN 65 % (41-73); TOTAL CELLS COUNTED 100
--- NOTE | 2023-08-22 10:48 | NUR ---
AM NOTES: PT ALERT AND ORIENTED X4, PLEASANT AND COOPERATIVE WITH CARES. VITALS HRR SR 80'S, SBP 150'S, SATS ABOVE 95% ON RA, AFEBRILE. PT DENIES CHEST PAIN/PRESSURE HAS SOME ABD PAIN PT REPORTED CROHNS DSE, PT ON LACTULOSE HAD A LOOSE BLOODY STOOLS THIS MORNING, HGB AT 7.2 PROVIDER ORDERED 1PRBC AND 2PLT PHERESIS TO TRANSFUSE TYPE SCREEN DONE AWAITING TO ISSUES TICKET FROM BBK. SISTER AT THE BEDSIDE WAS GIVEN UPDATE REGARDING PT'S STATUS. PT INDEPENDENTLY AMBULATING TO THE BATHROOM NEEDING ASSISTANCE IF HOOKED UP TO IV'S, CALLS APPROPRIATELY. PT IN BED RESTING, ATE BREAKFAST WITH NO ISSUES. WILL CONTINUE TO MONITOR
[2023-08-23] VITALS (10 sets, daily range): BP systolic 132–148; BP diastolic 72–87
[2023-08-23 03:44] LABS: Hematocrit 21.5 % (37.0-53.0); Hemoglobin 6.8 g/dL (13.5-17.5); Mean Corpuscular HGB 28.8 pg (26.0-34.0); Mean Corpuscular HGB Conc 31.6 g/dL (31.5-36.5); Mean Corpuscular Volume 91 fL (80-100); Mean Platelet Volume 9.7 fL (9.1-12.4); Platelet Count 61 K/mm3 (150-400); RDW Coefficient Variation 16.1 % (11.7-14.2); RDW Standard Deviation 52.9 fL (35.1-46.3); Red Blood Cell Count 2.36 M/mm3 (4.30-5.90); White Blood Cell Count 9.69 K/mm3 (4.00-11.30)
[2023-08-23 04:02] LABS: Albumin, Blood 3.5 g/dL (3.4-5.0); Albumin/Globulin Ratio 1.5 (0.8-1.8); Bilirubin, Total 1.4 mg/dL (0.1-1.0); Calcium, Blood 8.7 mg/dL (8.5-10.1); Creatinine, Blood 0.5 mg/dL (0.60-1.20); Globulin, Blood 2.4 g/dL (2.2-4.0); Potassium, Blood 3.4 mmol/L (3.5-5.5); Total Protein, Blood 5.9 g/dL (6.4-8.2)
[2023-08-23 04:08] LABS: BAND PERCENT MAN 7 % (0-8); BASOPHILS PERCENT MAN 0 % (0-2); EOSINOPHILS PERCENT MAN 0 % (0-6); LYMPHOCYTES ABSOLUTE MAN 0.48 K/mm3 (0.84-5.20); LYMPHOCYTES PERCENT MAN 5 % (21-46); MONOCYTES ABSOLUTE MAN 0.48 K/mm3 (0.16-1.47); MONOCYTES PERCENT MAN 5 % (4-13); NEUTROPHILS ABSOLUTE MAN 8.72 K/mm3 (1.96-9.15); SEG NEUTROPHILS PERCENT MAN 83 % (41-73); TOTAL CELLS COUNTED 100
--- NOTE | 2023-08-23 06:30 | NUR ---
SHIFT SUMMARY A/Ox4 AND COOPERATIVE WITH CARE. ANSWERS QUESTIONS APPROPRIATELY AND ABLE TO MAKE HIS NEEDS KNOWN. CARDIAC, REMAINS IN SR 80-90'S WITH NO REPORTS OF CP OR PRESSURE. MINOR EPISODE OF DIZZINESS REPORTED BY PT, BUT SBP HAS BEEN STABLE RANGING 130-140'S. RESPIRATORY, MAINTAINS SPO2 >94% ON RA WITH NO REPORTS OF SOB OR DYSPNEA WHILE AT REST. SOME INCREASED WORK OF BREATHING NOTED WITH EXERTION. GI/, CONTINUES TO HAVE NIRU RED STOOL WITH OVER 5bm'S THIS SHIFT. ALSO ENDORSES SOME INTERMITTENT ABD. PAIN, BUT PAIN WELL CONTROLLED WITH PRN PAIN MEDICATIONS. HgB THIS AM SHOWED 6.8, PLAN FOR INFUSION OF PRBC s THIS AM ONCE BLOOD ARRIVES. NO REPORTS OF N/V HOWEVER. ABLE TO AMBULATE TO BATHROOM WITH MINIMAL ASSISTANCE FROM STAFF. RECEIVED DOSE OF PLATELETS ORDERED AT START OF THE SHIFT WITHOUT ANY ADVERSE EFFECTS NOTED. ASSESSED PT FOR RISKS OF ANY IGNITION SOURCES WELL BEHAVIORS FOR INCREASED RISKS OF FIRE DANGER. PT EDUCATED ON COMMON SOURCES OF IGNITION WELL NEED TO KEEP A SAFE ENVIRONMENT. PT VOICED UNDERSTANDING. NO NEW ORDERS AT THIS TIME, WILL REPORT TO ONCOMING RN. CHRISTIANO WATERMAN OF THIS NOTE
[2023-08-23 12:48] LABS: International Normalized Ratio 1.53; Prothrombin Time Results 15.7 Sec (9.7-11.5)
[2023-08-23 16:00] LABS: Hematocrit 23.9 % (37.0-53.0); Hemoglobin 7.7 g/dL (13.5-17.5); Mean Corpuscular HGB 28.7 pg (26.0-34.0); Mean Corpuscular HGB Conc 32.2 g/dL (31.5-36.5); Mean Corpuscular Volume 89 fL (80-100); Platelet Count 53 K/mm3 (150-400); RDW Coefficient Variation 15.7 % (11.7-14.2); RDW Standard Deviation 50.9 fL (35.1-46.3); Red Blood Cell Count 2.68 M/mm3 (4.30-5.90); White Blood Cell Count 8.84 K/mm3 (4.00-11.30)
[2023-08-23 17:14] LABS: BAND PERCENT MAN 13 % (0-8); BASOPHILS PERCENT MAN 0 % (0-2); EOSINOPHILS PERCENT MAN 0 % (0-6); LYMPHOCYTES ABSOLUTE MAN 0.26 K/mm3 (0.84-5.20); LYMPHOCYTES PERCENT MAN 3 % (21-46); METAMYELOCYTE ABSOLUTE MAN 0.08 K/mm3 (0.00-0.00); METAMYELOCYTE PERCENT MAN 1 % (0-0); MONOCYTES ABSOLUTE MAN 0.08 K/mm3 (0.16-1.47); MONOCYTES PERCENT MAN 1 % (4-13); NEUTROPHILS ABSOLUTE MAN 8.39 K/mm3 (1.96-9.15); SEG NEUTROPHILS PERCENT MAN 82 % (41-73); TOTAL CELLS COUNTED 100
--- NOTE | 2023-08-23 18:40 | NUR ---
PT SUMMARY/COBRA TRANSFER PT TO TRANSFER UP TO [facility] IN [place] ACCEPTING DR GARCIA. REPORT GIVEN TO SARANYA HOPSON. PT HAS HAD 4 EPISODES OF NIRU BLOOD STOOLS. 1PRBC TRANSFUSED HGB WENT UP TO 7.7. 1PACK OF PLATELET PHERESIS TRANSFUSED WELL. PT HAS BEEN USING THE BATHROOM INDEPENDENTLY CALLS APPROPRIATELY TO MAKE NEEDS KNOWN, VITALS HRR SR 80'S, SBP 130'S, SATS ABOVE 95% ON RA, AFEBRILE. PT DENIES ANY CHEST PAIN/DISCOMFORT MOSTLY ABD DISCOMFORT WHEN HE HAS TO HAVE A BM. ALBUMIN DOSES COMPLETED. POTASSIUM REPLACED TODAY WITH 40MEQ VIA IV, LABS IN AM. PT EATING AND DRINKING WITH NO ISSUES. PT C/O NOT GETTING ANY SLEEP LAST NIGHT TIRED FOR THE DAY. NO OTHER ISSUES REPORTED. AWAITING FOR PT'S TRANSPORT IN 15 MINS, FAMILY HAS BEEN AT THE BEDSIDE ALL SHIFT, AWARE OF THE STATUS OF THE PT.
--- NOTE | 2023-08-23 21:15 | NUR ---
TRANSFER OF CARE NOTE: [facility] [place] FOR CONTINUATION OF CARE. EMS ARRIVED SHORTLY AFTER SHIFT CHANGE REPORT GIVEN TO EMS, ALL QUESTIONS ANSWERED. PT TRANSFERRED FROM BED TO [facility] WITHOUT STAFF ASSIST. ALL PT'S PERSONAL BELONGING GATHERED AND PLACED WITH PT. PT DEPARTED WITH EMS @1999 PM. CHRISTIANO WATERMAN UPON D/C.
== END 2023-08-23 20:06 | disposition short-term general hospital (02) | DRG 871 ==
LOC: ER 18:42 → ERHOLD 08-20 02:26 → PCU 08-20 02:26
PROVIDERS: Emergency Medicine; Family Medicine; ADMIT Internal Medicine
PROC: 0W9G3ZX Drainage of Peritoneal Cavity, Percutaneous Approach, Diagnostic (ICD-10-PCS; principal; 2023-08-20)
PROC: 3E03329 Introduction of Other Anti-infective into Peripheral Vein, Percutaneous Approach (ICD-10-PCS; 2023-08-20)
DX: A41.9 Sepsis, unspecified organism (principal); K65.2 Spontaneous bacterial peritonitis; E87.20 Acidosis, unspecified; K50.90 Crohn's disease, unspecified, without complications; E87.1 Hypo-osmolality and hyponatremia; K76.6 Portal hypertension; K50.911 Crohn's disease, unspecified, with rectal bleeding; R65.20 Severe sepsis without septic shock; K70.31 Alcoholic cirrhosis of liver with ascites; K76.82 Hepatic encephalopathy; D72.829 Elevated white blood cell count, unspecified; T38.0X5A Adverse effect of glucocorticoids and synthetic analogues, initial encounter; F10.21 Alcohol dependence, in remission; K31.89 Other diseases of stomach and duodenum; E86.0 Dehydration; D50.0 Iron deficiency anemia secondary to blood loss (chronic); Z79.52 Long term (current) use of systemic steroids
CPT/HCPCS: 36415; 49083; 74177; 80053; 82042; 82140; 82803; 83605; 83615; 83690; 84157; 84550; 85025; 85610; 86850; 86900; 86901; 86905; 86922; 87040; 89051; 94762; 96361; 96365; 96375; 96376; 99285-25; A9270; C9113; G0480; J0696; J1940; J3010; J3411; J3480; J7030; J7050; J7512; P9016; P9035; P9047; Q9967

== ENCOUNTER 2023-09-21 19:36 | Inpatient (IN) | payer OTHER ==
[~2023-09-21] VITALS: Ht 182.9 cm; Wt 85.9 kg
[~2023-09-21 19:36] MED LIST changes: +MELA3 PO
[2023-09-21 20:23] LABS: BASOPHILS ABSOLUTE AUTO 0.02 K/mm3 (0.00-0.23); BASOPHILS PERCENT AUTO 0 % (0-2); EOSINOPHILS ABSOLUTE AUTO 0.04 K/mm3 (0.00-0.68); EOSINOPHILS PERCENT AUTO 0 % (0-6); Hematocrit 28.2 % (37.0-53.0); Hemoglobin 8.4 g/dL (13.5-17.5); IMMATURE GRAN ABSOLUTE AUTO 0.19 K/mm3 (0.00-0.10); IMMATURE GRAN PERCENT AUTO 2 % (0-1); LYMPHOCYTES PERCENT AUTO 9 % (21-46); MONOCYTES ABSOLUTE AUTO 1.86 K/mm3 (0.16-1.47); MONOCYTES PERCENT AUTO 15 % (4-13); Mean Corpuscular HGB 26.3 pg (26.0-34.0); Mean Corpuscular HGB Conc 29.8 g/dL (31.5-36.5); Mean Corpuscular Volume 88 fL (80-100); Mean Platelet Volume 9.5 fL (9.1-12.4); NEUTROPHILS ABSOLUTE AUTO 9.41 K/mm3 (1.96-9.15); NEUTROPHILS PERCENT AUTO 75 % (41-73); NRBC ABSOLUTE 0.09 K/mm3 (0.00-0.02); NRBC Auto 0.7 /100 WBC (0.0-0.2); Platelet Count 229 K/mm3 (150-400); RDW Coefficient Variation 20.4 % (11.7-14.2); RDW Standard Deviation 63.3 fL (35.1-46.3); Red Blood Cell Count 3.19 M/mm3 (4.30-5.90); White Blood Cell Count 12.62 K/mm3 (4.00-11.30)
[2023-09-21 21:00] LABS: Albumin, Blood 1.9 g/dL (3.4-5.0); Albumin/Globulin Ratio 0.4 (0.8-1.8); Bilirubin, Total 0.8 mg/dL (0.1-1.0); Bun/Creatinine Ratio 31.3 (12.0-20.0); Creatinine, Blood 0.48 mg/dL (0.60-1.20); Globulin, Blood 5.3 g/dL (2.2-4.0); Potassium, Blood 4.5 mmol/L (3.5-5.5); Total Protein, Blood 7.2 g/dL (6.4-8.2)
[2023-09-22 00:34] LABS: Source, Urine Clean Catch
[2023-09-22 00:47] LABS: Bilirubin, Urine Neg (Neg); Blood, Urine Neg (Neg); Glucose Qualitative, Urine Neg (Neg); Ketones, Urine Neg (Neg); Leukocyte Esterase, Urine 1+ (Neg); Nitrite, Urine Neg (Neg); Protein, Urine 2+ (Neg); Specific Gravity, Urine 1.015 (1.003-1.022); Urobilinogen, Urine 1+ (Normal)
[2023-09-22 01:19] LABS: Appearance, Urine Clear (Clear); Color, Urine Yellow (P-Yellow)
[2023-09-22 01:21] LABS: Bacteria Few /hpf; Red Blood Cells, Urine 0-2 /hpf (0-2); Squamous Epithelial Cells Not Seen /hpf (Few); White Blood Cells, Urine 0-2 /hpf (0-5)
[2023-09-22 01:25] LABS: Influenza A, PCR NEGATIVE (NEGATIVE); Influenza B, PCR NEGATIVE (NEGATIVE); Resp Syncytial Virus, PCR NEGATIVE (NEGATIVE); SARS-Cov-2 (COVID-19) PCR, MMC NEGATIVE (NEGATIVE)
[2023-09-22 03:13] LABS: BASOPHILS ABSOLUTE AUTO 0.02 K/mm3 (0.00-0.23); BASOPHILS PERCENT AUTO 0 % (0-2); EOSINOPHILS ABSOLUTE AUTO 0.02 K/mm3 (0.00-0.68); EOSINOPHILS PERCENT AUTO 0 % (0-6); Hematocrit 25.8 % (37.0-53.0); Hemoglobin 7.4 g/dL (13.5-17.5); IMMATURE GRAN ABSOLUTE AUTO 0.18 K/mm3 (0.00-0.10); IMMATURE GRAN PERCENT AUTO 2 % (0-1); LYMPHOCYTES ABSOLUTE AUTO 1.04 K/mm3 (0.84-5.20); LYMPHOCYTES PERCENT AUTO 9 % (21-46); MONOCYTES ABSOLUTE AUTO 1.66 K/mm3 (0.16-1.47); MONOCYTES PERCENT AUTO 15 % (4-13); Mean Corpuscular HGB 25.5 pg (26.0-34.0); Mean Corpuscular HGB Conc 28.7 g/dL (31.5-36.5); Mean Corpuscular Volume 89 fL (80-100); Mean Platelet Volume 8.3 fL (9.1-12.4); NEUTROPHILS ABSOLUTE AUTO 8.29 K/mm3 (1.96-9.15); NEUTROPHILS PERCENT AUTO 74 % (41-73); NRBC ABSOLUTE 0.05 K/mm3 (0.00-0.02); NRBC Auto 0.4 /100 WBC (0.0-0.2); Platelet Count 179 K/mm3 (150-400); RDW Coefficient Variation 20.1 % (11.7-14.2); RDW Standard Deviation 64.4 fL (35.1-46.3); White Blood Cell Count 11.21 K/mm3 (4.00-11.30)
[2023-09-22 03:46] LABS: Albumin, Blood 1.6 g/dL (3.4-5.0); Albumin/Globulin Ratio 0.3 (0.8-1.8); Bun/Creatinine Ratio 37.4 (12.0-20.0); Calcium, Blood 8.1 mg/dL (8.5-10.1); Creatinine, Blood 0.4 mg/dL (0.60-1.20); Globulin, Blood 4.8 g/dL (2.2-4.0); Potassium, Blood 3.8 mmol/L (3.5-5.5); Total Protein, Blood 6.4 g/dL (6.4-8.2)
[2023-09-22 04:05] VITALS: BP 152/97
--- NOTE | 2023-09-22 04:38 | NUR ---
ARRIVAL TO UNIT PT ARRIVED TO RM 226 VIA W/C. ABLE TO TRANSFER TO THE BATHROOM WITH ASST FROM NURSE. PT HAD SMALL BM AND VOIDED. PT VERY PLEASENT AND COOPERATIVE. DENIES ANY PAIN AT THIS TIME. PT PLACED ON 3L NC FOR COMFORT. AT HOME ON RA. PT EDUCATED SUBSCRIPTION AGENT LIGHT. NO OTHER CONCERNS AT THIS TIME. CALL LIGHT WITHIN REACH
[2023-09-22 07:17] VITALS: BP 152/94
--- NOTE | 2023-09-22 11:24 | NUR ---
"Spiritual Care Consult | by Dr. Keys Pt. is awake in bed when he welcomes my visit. Pt. is pleasant. Facilitated a life review. Palliative Care nurse Nicolette arrived to do an assessment. Pt. displayed evidence of engagement, awareness, and encouragement that his case was being considered. After the assessment, prayed with the Pt. Pt. verbalized gratitude for the spiritual care visit and welcomed this merchandise processor to return."
--- NOTE | 2023-09-22 12:26 | NUR ---
called dr. murguia regarding pts plan. DR. MURGUIA ALERTED THAT PATIENT IS AN [facility] PATIENT AND THAT HE WOULD BE IN DR. RUSSELL CARE PER HOSPITALIST OFFICE. CALLED DR. SMITH AT THIS TIME NOTIFYING HIM OF THE PATIENT. PT IS RESTING IN BED AND REPORTS FEELING TIRED. REPORTS PAIN TOLERABLE UNCHANGED FROM EARLIER, AMBULATING WELL TO RESTROOM TO ATTEMPT TO VOID. CALLS APPROPRIATLY AND DENIES FURTHER NEEDS.
[2023-09-22 15:00] VITALS: BP 150/93
--- NOTE | 2023-09-22 15:07 | NUR ---
TRANSFER PT TRANSFERED TO PCU, REPORT GIVEN TO RECIEVING RN. ROYAL SENT WITH PATIENT, TAKEN ON BED. PATIENT OUT OF ROOM TO PARACENTESIS AND TAKEN DIRECTLY AFTER. IV ABX CONTINUED ON ARRIVAL. MOTHER AT BEDSIDE WITH PATIENT.
--- NOTE | 2023-09-22 15:15 | NUR ---
ASSUMPTION OF CARE PT TO PCU FROM SURGICAL UNIT. LR AND ABX INFUSING UPON ARRIVAL. PT AOX4 ANSWERS QUESTIONS APPROPRIATELY. PT IS LETHARGIC, AND TACHYPNEIC. PT PLACED ON TELE, RHYTHYM SINUS TACH HR IN 110s. PT SPO2 >92% ON 3L NC. BP STABLE. PT ORIENTED TO ROOM AND CALL LIGHT IN REACH. PT MOTHER AT BEDSIDE.
[2023-09-22 15:28] LABS: Automated BF RBC Count 0.003 M/mm3 (0-0); Automated BF WBC Count 0.417 K/mm3 (0-999)
[2023-09-22 15:29] LABS: Body Fluid WBC Count 417 /mm3 (0-999); RBC Count, Body Fluid 3000 /mm3 (0-0)
[2023-09-22 15:32] LABS: Color, Body Fluid Yellow (None-Yellow)
[2023-09-22 15:45] LABS: Albumin, Body Fluid 0.5 g/dL
[2023-09-22 15:53] LABS: Protein, Body Fluid 1.6 g/dL
[2023-09-22 15:55] LABS: Lactate Dehydrogenase, Body Fl 211 U/L
[2023-09-22 16:11] LABS: Total Cell Count, Body Fluid 100
--- NOTE | 2023-09-22 16:51 | NUR ---
Spiritual Care Follow up. After a procedure, Pt. has been transferred to PCU 14. Pt. is awake and welcomes my visit. Pts. family soon arrives and rapportis re-established as the family remembered me from previous hospital visits. Pt. verbalized gratitude, and I agreed to visit in the morning.
[2023-09-22 17:06] VITALS: BP 135/88
--- NOTE | 2023-09-22 18:14 | NUR ---
SHIFT SUMMARY PT AOX4 IN [facility]. PT OBEYS COMMANDS AND ANSWERS QUESTIONS APPROPRIATELY. PT DENIES CHEST PRESSURE/PAIN. SPO2>92% ON 3L N/C. SCDS IN PLACE LE BILATERAL. PT MEDICATED FOR PAIN AND NAUSEA PER EMAR. TO BEDSIDE TO DISCUSS POC. PT AMBULATED TO BATHROOM WITH STA FROM PCT AND USING FWW. NO ACUTE CHANGES.
[2023-09-22 20:26] VITALS: BP 155/89
--- NOTE | 2023-09-22 20:27 | NUR ---
ASSUMPTION OF CARE THIS RN ASSUMED CARE OF PATIENT AT 1900. REPORT TAKEN FROM LYRIC HOPSON. PT A&O X4. ABLE TO MAKE NEEDS KNOWN. FAMILY AT BEDSIDE. MD STAPLES WITH VERBAL THAT PT CAN HAVE ICE CHIPS. SBP 150'S. ST WITH HR 110-120. ON 3L VIA NC WITH SPO2 >92%. PT DENIES SOB AT REST, AND REPORTS BREATHING FEELS IMPROVED RIGHT NOW. REPORTS OCCASIONAL ABDOMINAL PAIN LOCALIZED IN THE UPPER/MID QUADRANT THAT FEELS LIKE PRESSURE AND "FEELING LIKE STOMACH IS GOING TO EXPLODE". PT STATES THAT PAIN IS TOLERABLE AT THIS TIME. ABDOMEN FIRM TO PALPATION. BS+. PT REPORTS BOWEL MOVEMENT SEVERAL HOURS AGO. DENIES N/V AT THIS TIME. PPP. SCD'S IN PLACE. LR INFUSING PER EMAR. PT REPORTS LAST DRINK WAS IN JULY. NO SIGNS OF WITHDRAWAL NOTED. BED IN LOWEST POSITION AND CALL LIGHT WITHIN REACH.
[2023-09-22 23:56] VITALS: BP 130/76
[2023-09-23 04:39] VITALS: BP 146/84
[2023-09-23 05:02] LABS: International Normalized Ratio 1.28; Prothrombin Time Results 13.3 Sec (9.7-11.5)
--- NOTE | 2023-09-23 05:06 | NUR ---
SHIFT SUMMARY SEE PREVIOUS NOTE AND ASSESSMENT. PT CONTINUES TO BE ON 3L VIA NC. NO OTHER CHANGES TO VITALS. PT PALE AND DIAPHORETIC. MEDICATING PER EMAR FOR ABDOMINAL PAIN. TACHYPNEIC AT REST. PT'S MOTHER HAS REMAINED AT BEDSIDE T/O THIS SHIFT. PT ABLE TO REPOSITION SELF INDEPENDENTLY IN BED. USING URINAL IN BED INDEPENDENTLY. BS+. BED IN LOWEST POSITION AND CALL LIGHT WITHIN REACH. THIS RN WILL REPORT TO ONCOMING DAYSHIFT RN.
[2023-09-23 05:14] LABS: Albumin, Blood 1.8 g/dL (3.4-5.0); Albumin/Globulin Ratio 0.4 (0.8-1.8); Bilirubin, Total 1.1 mg/dL (0.1-1.0); Bun/Creatinine Ratio 20.5 (12.0-20.0); Creatinine, Blood 0.49 mg/dL (0.60-1.20); Globulin, Blood 5.1 g/dL (2.2-4.0); Total Protein, Blood 6.9 g/dL (6.4-8.2)
[2023-09-23 05:37] LABS: BASOPHILS ABSOLUTE AUTO 0.04 K/mm3 (0.00-0.23); BASOPHILS PERCENT AUTO 0 % (0-2); Hematocrit 27.4 % (37.0-53.0); LYMPHOCYTES ABSOLUTE AUTO 1.05 K/mm3 (0.84-5.20); LYMPHOCYTES PERCENT AUTO 8 % (21-46); MONOCYTES ABSOLUTE AUTO 1.92 K/mm3 (0.16-1.47); MONOCYTES PERCENT AUTO 14 % (4-13); Mean Corpuscular HGB 25.8 pg (26.0-34.0); Mean Corpuscular HGB Conc 29.2 g/dL (31.5-36.5); Mean Corpuscular Volume 88 fL (80-100); NRBC ABSOLUTE 0.09 K/mm3 (0.00-0.02); NRBC Auto 0.6 /100 WBC (0.0-0.2); RDW Coefficient Variation 20.1 % (11.7-14.2); RDW Standard Deviation 62.9 fL (35.1-46.3); White Blood Cell Count 14.03 K/mm3 (4.00-11.30)
[2023-09-23 06:18] LABS: EOSINOPHILS ABSOLUTE AUTO 0.02 K/mm3 (0.00-0.68); EOSINOPHILS PERCENT AUTO 0 % (0-6); IMMATURE GRAN ABSOLUTE AUTO 0.16 K/mm3 (0.00-0.10); IMMATURE GRAN PERCENT AUTO 1 % (0-1); Mean Platelet Volume 9.3 fL (9.1-12.4); NEUTROPHILS ABSOLUTE AUTO 10.84 K/mm3 (1.96-9.15); NEUTROPHILS PERCENT AUTO 77 % (41-73); Platelet Count 240 K/mm3 (150-400)
[2023-09-23 07:30] VITALS: BP 107/77
[2023-09-23 12:28] VITALS: BP 165/90
[2023-09-23 12:58] LABS: Magnesium, Blood 2.2 mg/dL (1.6-2.4)
[2023-09-23 12:59] LABS: Phosphorus, Blood 3.9 mg/dL (2.5-4.9)
--- NOTE | 2023-09-23 14:25 | NUR ---
The patient is currently awaiting transfer to [place], as he requires GI intervention which is currently unavailable. According to Dr. Chou, the patient's [place] team is not recommending surgical intervention, and a transfer request is in place to send the patient to [place] where his team will discuss palliation with him. Our Palliative team will remain available if needed.
[2023-09-23 15:36] LABS: Vancomycin, Trough 20.5 ug/mL (5.0-10.0)
[2023-09-23 16:30] VITALS: BP 151/101
--- NOTE | 2023-09-23 17:56 | NUR ---
SHIFT SUMMARY PT AOX4. PT OBEYS COMMANDS AND COMMUNICATES NEEDS EFFECTIVELY. VSS. SPO2>92% ON 3L PT TACHYPNEIC. PT DENIES CHEST PAIN/PRESSURE. PT EDUCATED ON POC AND PLANS FOR POSSIBLE TRANSFER PENDING BED AVAILABILITY AT [facility] IN [place]. AND TO BEDSIDE T/O DAY TO EDUCATE PT ON POC AND CURRENT ILLNESS. PT REPORTS FEELING ANXIOUS AND OVERWHELMED, NOTIFIED ORDERS GIVEN PT MEDICATED PER EMAR. PICC LINE STARTED IN TYREE AND IV NUTRITION STARTED. PT MOTHER AT BEDSIDE T/O DAY. POC FOR SURGERY TO CONTINNUE TO FOLLOW CASE. PT ABLE TO REPOSITION INDEPENDENTLY IN BED. NO ACUTE CHANGES.
[2023-09-23 21:21] VITALS: BP 153/104
--- NOTE | 2023-09-23 21:46 | NUR ---
ASSUMPTION OF CARE/PATIENT UPDATE THIS RN ASSUMED CARE OF PATIENT AT 1900. UPON ENTERING PT'S ROOM, PT APPEARED WITHDRAWN AND UPSET REGARDING THE CONVERSATIONS HAD BETWEEN THE PATIENT, HIS MOTHER, AND MD STAPLES EARLIER TODAY. PT STATED THAT HE REGRETTED DECISION AND "WISHED THAT HE WOULD'VE SAID YES TO SURGERY". THIS RN SPOKE TO PT AND PT'S MOTHER REGARDING CONVERSATIONS WITH MD TODAY, AND REITERATED WHAT MD STAPLES STATED IN TODAYS NOTES AND TOLD THEM REGARDING TRANSFERRING. PT TEARFUL AND EXPRESSED CONCERN THAT HE LOST HIS CHANCE TO LIVE BY SAYING NO TO SURGERY TODAY. THIS RN SENT MESSAGE TO MD STAPLES REGARDING THIS CONVERSATION WITH THE PATIENT. MD STAPLES WROTE THAT SHE WOULD TALK TO THE PATIENT IN THE MORNING AND TO MAKE HIM NPO AT MIDNIGHT. PT ST ON MONITOR WITH HR 100-110'S. SBP 150'S. PT APPEARS ANXIOUS AT THIS TIME. AFEBRILE. ON 3L VIA NC WITH SPO2 >92%. BED IN LOWEST POSITION AND CALL LIGHT WITHIN REACH. PT'S MOTHER REMAINS AT BEDSIDE.
[2023-09-23 23:17] VITALS: BP 167/101
[2023-09-24 04:47] VITALS: BP 164/104
--- NOTE | 2023-09-24 04:55 | NUR ---
SHIFT SUMMARY SEE PREVIOUS NOTE. PT WITH INCREASED ANXIETY DURING THIS SHIFT D/T LIKELY UPCOMING SURGERY. MOTHER REMAINS AT BEDSIDE. PT WITH OCCASIONAL ABDOMINAL PAIN AND HEADACHE; MEDICATING PER EMAR. X1 BOWEL MOVEMENT; PT AMBULATED WITH 1P ASSIST AND FWW TO BATHROOM. PT DYSPNEIC WITH EXERTION AND NEEDING INCREASED O2 TO MAINTAIN SATS; OTHERWISE PT ON 3L AT REST. HTN NOTED WITH SBP 150-160'S. ST WITH HR 100-110'S. AFEBRILE. TACHYPNEA NOTED AT REST. THIS RN RECEIVED CALL FROM MD STAPLES REGARDING PREVIOUS MESSAGES ABOUT PATIENT. MD STAPLES ASKED THIS RN TO REASSURE PT THAT SHE WILL SPEAK TO HIM IN THE MORNING REGARDING SURGERY. PT HAS BEEN NPO SINCE MIDNIGHT. PT NOW IN RECLINER FOR COMFORT. CALL LIGHT WITHIN REACH. THIS RN WILL REPORT TO ONCOMING DAYSHIFT RN.
[2023-09-24 05:37] LABS: Hematocrit 28.3 % (37.0-53.0); Hemoglobin 8.1 g/dL (13.5-17.5); Mean Corpuscular HGB 26.1 pg (26.0-34.0); Mean Corpuscular HGB Conc 28.6 g/dL (31.5-36.5); Mean Corpuscular Volume 91 fL (80-100); Mean Platelet Volume 9.2 fL (9.1-12.4); NRBC ABSOLUTE 0.11 K/mm3 (0.00-0.02); NRBC Auto 0.5 /100 WBC (0.0-0.2); Platelet Count 259 K/mm3 (150-400); RDW Coefficient Variation 19.9 % (11.7-14.2); RDW Standard Deviation 64.5 fL (35.1-46.3)
[2023-09-24 05:53] LABS: International Normalized Ratio 1.21; Prothrombin Time Results 12.6 Sec (9.7-11.5)
[2023-09-24 06:10] LABS: Alanine Aminotransfer (ALT/SGP 45 U/L (12-78); Albumin, Blood 1.7 g/dL (3.4-5.0); Albumin/Globulin Ratio 0.3 (0.8-1.8); Alk Phos 211 U/L (50-136); Anion Gap 0 mmol/L (6-16); Aspartate Aminotrans (AST/SGOT 53 U/L (12-37); Bilirubin, Total 0.8 mg/dL (0.1-1.0); Blood Urea Nitrogen 7 mg/dL (8-24); Bun/Creatinine Ratio 19.5 (12.0-20.0); CO2, Blood 36 mmol/L (21-32); Calcium, Blood 9.5 mg/dL (8.5-10.1); Chloride, Blood 99 mmol/L (98-108); Creatinine, Blood 0.36 mg/dL (0.60-1.20); Globulin, Blood 5.1 g/dL (2.2-4.0); Glomerular Filtration Rate 141 (60-); Glucose, Blood 142 mg/dL (70-99); Magnesium, Blood 2.3 mg/dL (1.6-2.4); Phosphorus, Blood 2.2 mg/dL (2.5-4.9); Potassium, Blood 4.4 mmol/L (3.5-5.5); Sodium, Blood 135 mmol/L (136-145); Total Protein, Blood 6.8 g/dL (6.4-8.2); Triglycerides 75 mg/dL (30-160)
[2023-09-24 08:18] VITALS: BP 157/103
[2023-09-24 09:56] LABS: BAND PERCENT MAN 5 % (0-8); BASOPHILS PERCENT MAN 0 % (0-2); EOSINOPHILS ABSOLUTE MAN 0.22 K/mm3 (0.00-0.68); EOSINOPHILS PERCENT MAN 1 % (0-6); LYMPHOCYTES ABSOLUTE MAN 0.45 K/mm3 (0.84-5.20); LYMPHOCYTES PERCENT MAN 2 % (21-46); METAMYELOCYTE ABSOLUTE MAN 0.22 K/mm3 (0.00-0.00); METAMYELOCYTE PERCENT MAN 1 % (0-0); MONOCYTES ABSOLUTE MAN 2.93 K/mm3 (0.16-1.47); MONOCYTES PERCENT MAN 13 % (4-13); MYELOCYTE ABSOLUTE MAN 0.22 K/mm3 (0.00-0.00); MYELOCYTE PERCENT MAN 1 % (0-0); NEUTROPHILS ABSOLUTE MAN 18.53 K/mm3 (1.96-9.15); SEG NEUTROPHILS PERCENT MAN 77 % (41-73); TOTAL CELLS COUNTED 100
[2023-09-24 10:14] VITALS: BP 174/99
--- NOTE | 2023-09-24 10:25 | NUR ---
UPDATE PT TO SURGERY AT 1000. PT LEFT VIA HOSPITAL BED AND ON 3L NC. PT AMANDA TO TRANSFER FROM RECLINER TO BED WITH ASSISTANCE FROM SAND MILL OPERATOR CORE SAND. PT FAMILY PRESENT AT TIME OF TRANSFER TO SURGERY.
--- NOTE | 2023-09-24 10:26 | NUR ---
ASSUMPTION OF CARE THIS RN ASSUMED CARE OF PT AT 0700. PT A/OX4 AND ABLE TO EXPRESS NEEDS. PT EXPRESSED SOME ANXIETY RELATED TO POSSIBILT YOF SURGERY FOR TODAY AFTER PT INFOMRED NIGHT RN THAT HE WANTED TO HAVE THE SURGERY THAT WAS DISCUSSED ON 09/23/[address] STAPLES. THIS RN DISCUSSED WHAT POST PROCEDURE WOULD LOOK LIKE TO HELP RELEIVE SOME OF PT ANXIETY. PT ABLE TO MOVE ALL EXTREMITIES BUT. NO RPEORT OF CHEST PAIN/PRESSURE AT THIS TIME. PT BP'S ELEVATED TODAY, SEE CHART. PT SATS IN THE 90'S ON 3L NC, PT REPORTS THAT HE HAS SOME PRESSURE THAT IS CAUSING SOME SOB. PT VISIBLY TACHYNEIC AND WORKING FOR HIS BREATHS MORE WHEN COMPARED TO YESTERDAY. PT NPO SINCE MIDNIGHT FOR POSSIBLE PROCEDURE. TPN CONTINUING TO RUN PER ORDERS. DR STAPLES TO SEE PT EARLY TO DISCUSS PROCEDURE WITH PT AND FAMILY PRESENT.
--- NOTE | 2023-09-24 10:30 | NUR ---
INTO SDS VIA BED. PT A&OX4-REPORTS 8 HEADACHE. PT SOB WITH EXERTION. RR 26-32.LUNGS DIMINISHED TO BASES.SATS>90% ON RA. HR 110'S. BP 150-160'S/100'S. NPO STATUS CONFIRMED. CHLORHEXIDINE WIPE X 2 TO ABDOMEN. ABDOMEN VERY DISTENDED AND FIRM.UMBILICAL HERNIA NOTED-THERE IS ALSO REDNESS NOTED AROUND THE UMBILICUS.
--- NOTE | 2023-09-24 12:16 | NUR ---
REPORT GIVEN TO PINKING MACHINE OPERATOR AT 1150. PT CURRENTLY DOWN IN SURGERY AND WILL GO DIRECTLY T ICU AFTER PROCEDURE. PT MOTHER REMOVED MOST OF PT PERSONAL ITEM AND TOOK THEM TO HER CAR. PT MOTHER UPDATE THATH PT IS TO TRANSFER TO ICU AFTER PROCEDURE.
[2023-09-24 16:51] LABS: PCO2 Arterial 56.6 mmHg (35-45); PO2 Arterial 274 mmHg (80-100)
[2023-09-24 16:54] LABS: Mean Corpuscular HGB 27.8 pg (26.0-34.0); Mean Corpuscular HGB Conc 30.3 g/dL (31.5-36.5); Mean Corpuscular Volume 92 fL (80-100); Mean Platelet Volume 9.1 fL (9.1-12.4); NRBC ABSOLUTE 0.09 K/mm3 (0.00-0.02); NRBC Auto 0.5 /100 WBC (0.0-0.2); Platelet Count 153 K/mm3 (150-400); RDW Coefficient Variation 17.9 % (11.7-14.2); RDW Standard Deviation 58.1 fL (35.1-46.3); Red Blood Cell Count 1.58 M/mm3 (4.30-5.90); White Blood Cell Count 17.24 K/mm3 (4.00-11.30)
[2023-09-24 16:56] LABS: pH Blood Arterial 7.26 (7.35-7.45)
[2023-09-24 17:00] LABS: Hematocrit 14.5 % (37.0-53.0); Hemoglobin 4.4 g/dL (13.5-17.5)
[2023-09-24 17:29] LABS: Bun/Creatinine Ratio 14.1 (12.0-20.0); Creatinine, Blood 0.43 mg/dL (0.60-1.20); Potassium, Blood 5.3 mmol/L (3.5-5.5)
[2023-09-24 17:30] LABS: PCO2 Arterial 68.2 mmHg (35-45); PO2 Arterial 264 mmHg (80-100); pH Blood Arterial 7.11 (7.35-7.45)
[2023-09-24 17:36] LABS: Hematocrit 18.1 % (37.0-53.0); Mean Platelet Volume 9.6 fL (9.1-12.4); Platelet Count 138 K/mm3 (150-400)
[2023-09-24 17:42] LABS: Hemoglobin 5.6 g/dL (13.5-17.5)
[2023-09-24 17:43] LABS: International Normalized Ratio 1.64
[2023-09-24 17:45] LABS: Prothrombin Time Results 16.7 Sec (9.7-11.5)
[2023-09-24 17:53] LABS: Calcium, Blood 7.5 mg/dL (8.5-10.1); Magnesium, Blood 1.8 mg/dL (1.6-2.4)
[2023-09-24 17:59] LABS: PCO2 Arterial 63.2 mmHg (35-45); PO2 Arterial 332 mmHg (80-100); pH Blood Arterial 7.17 (7.35-7.45)
[2023-09-24 18:07] LABS: International Normalized Ratio 1.95
[2023-09-24 18:10] LABS: Prothrombin Time Results 19.7 Sec (9.7-11.5)
--- NOTE | 2023-09-24 18:28 | NUR ---
"Spiritual Care | Family Support Pt. is still in surgery and I sit for an extended time with family gathered in the waiting area. Facilitated life review, made common harrison connections. Listened with interest and encouragement. Family ocassionaly displays evidence of concern for Pt. Family verbalized gratitude for the spiritual care visit."
[2023-09-24 18:31] LABS: Hematocrit 28.1 % (37.0-53.0); Hemoglobin 9.2 g/dL (13.5-17.5); Mean Platelet Volume 8.8 fL (9.1-12.4); Platelet Count 115 K/mm3 (150-400)
[2023-09-24 18:42] LABS: Calcium, Blood 8.4 mg/dL (8.5-10.1); Magnesium, Blood 1.7 mg/dL (1.6-2.4)
[2023-09-24 18:45] LABS: International Normalized Ratio 1.4
[2023-09-24 18:46] LABS: Prothrombin Time Results 14.4 Sec (9.7-11.5)
[2023-09-24 20:00] VITALS: BP 143/86
[2023-09-24 20:30] VITALS: BP 143/75
[2023-09-24 20:56] LABS: PCO2 Arterial 40.3 mmHg (35-45); PO2 Arterial 74.2 mmHg (80-100); pH Blood Arterial 7.45 (7.35-7.45)
[2023-09-24 22:19] LABS: Hematocrit 35.8 % (37.0-53.0); Hemoglobin 12.6 g/dL (13.5-17.5)
[2023-09-24 22:42] LABS: Albumin, Blood 1.8 g/dL (3.4-5.0); Albumin/Globulin Ratio 0.8 (0.8-1.8); Bun/Creatinine Ratio 15.4 (12.0-20.0); Calcium, Blood 9.2 mg/dL (8.5-10.1); Creatinine, Blood 0.52 mg/dL (0.60-1.20); Globulin, Blood 2.3 g/dL (2.2-4.0); Potassium, Blood 5.3 mmol/L (3.5-5.5); Total Protein, Blood 4.1 g/dL (6.4-8.2)
[2023-09-24 23:57] LABS: Source, Urine Foley catheter
[2023-09-25] VITALS (21 sets, daily range): BP systolic 116–151; BP diastolic 73–98
[2023-09-25 00:21] LABS: Bilirubin, Urine Neg (Neg); Blood, Urine 4+ (Neg); Glucose Qualitative, Urine Neg (Neg); Ketones, Urine 1+ (Neg); Leukocyte Esterase, Urine Neg (Neg); Nitrite, Urine Neg (Neg); Protein, Urine 2+ (Neg); Urobilinogen, Urine NORM (Normal)
[2023-09-25 00:31] LABS: Appearance, Urine Hazy (Clear)
[2023-09-25 00:32] LABS: Color, Urine Yellow (P-Yellow)
[2023-09-25 00:33] LABS: Amorphous Light (0-Heavy); Bacteria Mod /hpf; Granular Casts 0-2 /lpf (0); Hyaline Casts 0-2 /lpf (0-2); Squamous Epithelial Cells Mod /hpf (Few); White Blood Cells, Urine 0-2 /hpf (0-5)
--- NOTE | 2023-09-25 01:20 | NUR ---
ARRIVAL TO ICU PT ARRIVED TO ICU 11 AT 1920 FROM SURGERY. HE IS INTUBATED AND ATTACHED TO THE VENT SHORTLY AFTERWARDS, VENT SETTINGS AC/VC 16/500/5/50%. HE HAS A ANTON DRAIN TO THE MIDLINE ABD, A STACY DRAIN UPPER MIDLINE ABD (JUST ABOVE ANTON), A STACY DRAIN TO THE RLQ, AN ILIOSTOMY TO THE RLQ, AN ART LINE TO THE RT RADIAL, A CENTRAL LINE TO THE RIJ, AND A PICC LINE TO LUE. HE IS SLOWING WAKING UP; PROPOFOL AND FENTANYL CRITICAL CARE RN STARTED WHEN HE WAS BITING AT THE ETT AND MOVING HEAD [id number]. AFEBRILE. HR 110'S. SBP 90'S WITH MAP 65-75; LEVOPHED INFUSING AND VASOPRESSIN STARTED, SEE FLOWSHEET FOR TITRATIONS. NO OUTPUT FROM ILIOSTOMY; BOTH STACY DRAINS HAVING LARGE AMOUNTS OF DRAINAGE AND HAVING TO BE EMPTIED FREQUENTLY. ATKINSON PLACED IN SURGERY, SMALL AMOUNT OF URINE OUTPUT. CHEST XRAY COMPLETED AND READ BY DR CORREA. OG IN PLACE AND CLAMPED. CENTRAL LINE DRESSING CHANGED. SEE SHIFT ASSESSMENT FOR FULL ASSESSMENT.
[2023-09-25 04:27] LABS: International Normalized Ratio 1.37; Prothrombin Time Results 14.1 Sec (9.7-11.5)
[2023-09-25 04:35] LABS: Albumin, Blood 1.6 g/dL (3.4-5.0); Albumin/Globulin Ratio 0.7 (0.8-1.8); Bilirubin, Total 3.1 mg/dL (0.1-1.0); Bun/Creatinine Ratio 18.8 (12.0-20.0); Calcium, Blood 8.6 mg/dL (8.5-10.1); Creatinine, Blood 0.59 mg/dL (0.60-1.20); Globulin, Blood 2.4 g/dL (2.2-4.0); Hematocrit 33.4 % (37.0-53.0); Hemoglobin 11.9 g/dL (13.5-17.5); Magnesium, Blood 1.6 mg/dL (1.6-2.4); Mean Corpuscular HGB 29.3 pg (26.0-34.0); Mean Corpuscular HGB Conc 35.6 g/dL (31.5-36.5); Mean Platelet Volume 9.6 fL (9.1-12.4); NRBC ABSOLUTE 0.35 K/mm3 (0.00-0.02); NRBC Auto 1.1 /100 WBC (0.0-0.2); Phosphorus, Blood 2.7 mg/dL (2.5-4.9); Platelet Count 156 K/mm3 (150-400); Potassium, Blood 5.2 mmol/L (3.5-5.5); RDW Coefficient Variation 15.1 % (11.7-14.2); RDW Standard Deviation 44.4 fL (35.1-46.3); Red Blood Cell Count 4.06 M/mm3 (4.30-5.90)
[2023-09-25 04:38] LABS: Mean Corpuscular Volume 82 fL (80-100)
[2023-09-25 05:30] LABS: BAND PERCENT MAN 4 % (0-8); BASOPHILS PERCENT MAN 0 % (0-2); EOSINOPHILS PERCENT MAN 0 % (0-6); LYMPHOCYTES ABSOLUTE MAN 3.88 K/mm3 (0.84-5.20); LYMPHOCYTES PERCENT MAN 12 % (21-46); METAMYELOCYTE ABSOLUTE MAN 0.97 K/mm3 (0.00-0.00); METAMYELOCYTE PERCENT MAN 3 % (0-0); MONOCYTES ABSOLUTE MAN 0.64 K/mm3 (0.16-1.47); MONOCYTES PERCENT MAN 2 % (4-13); MYELOCYTE ABSOLUTE MAN 0.64 K/mm3 (0.00-0.00); MYELOCYTE PERCENT MAN 2 % (0-0); NEUTROPHILS ABSOLUTE MAN 26.24 K/mm3 (1.96-9.15); SEG NEUTROPHILS PERCENT MAN 77 % (41-73); TOTAL CELLS COUNTED 100
--- NOTE | 2023-09-25 06:32 | NUR ---
END OF SHIFT SUMMARY NO ACUTE EVENTS OVER NIGHT. CONT TO BE SEDATED WITH PROPOFOL INFUSING AT 15MCG/KG/MIN AND FENTANYL INFUSING AT 50MCG/HR BUT HE IS NOW ANSWERING Y/N QUESTIONS MINIMALLY, OPENING EYES TO VERBAL STIMULI, AND WEAKLY FOLLOWING DIRECTIONS; HE WILL NOD HIS HEAD "YES" TO PAIN, PRN FENTANYL PUSH AVAILABLE, GIVEN, AND HELPFUL. AFEBRILE. VENT SETTINGS AC/VC 16/500/5/45%. HR 100-120'S. SBP 90-100, MAP 75-80, LEVOPHED TITRATED DOWN TO 4MCG/MIN (STARTED AT 25MCG/MIN) AND VASO PLACED ON SB AT 0400. OG CONT TO BE CLAMPED. BOTH STACY DRAINS CONT TO HAVE LARGE AMOUNTS OF DRAINAGE HAVING A TOTAL OUTPUT OF 1.9L OUT; CONT TO BE SEROSANGUINEOUS DRAINAGE; ILIOSTOMY HAD NO OUTPUT; ANTON DRAIN SHOWS MINIMAL DRAINAGE. ATKINSON IN PLACE WITH SMALL AMOUNT OF OUTPUT. LR INFUSING AT 150ML/HR. TPN INFUSING AT 65ML/HR. RIJ CENTRAL LINE PATENT, RUE POWERGLIDE PATENT, LUE PICC PATENT, AND RT RADIAL ART LINE PATENT, ALL DRESSINGS C/D/I. WILL REPORT TO AM RN WHEN AVAILABLE. PT MOTHER STAYED ALL NIGHT IN THE ICU WAITING ROOM. SHE CAME BACK TO THE UNIT AROUND 0600 AND LEFT BY 0620; PLEASENT AND PLEASED THAT THE NIGHT WENT WELL. SHE STATED THAT MORE FAMILY WILL BE AT BEDSIDE LATER TODAY.
--- NOTE | 2023-09-25 08:20 | NUR ---
INITIAL ASSESSMENT PATIENT INTUBATED AND SEDATED. PATIENT RESPONDS AT TIMES TO VERBAL STIMULI BY OPENING EYES BRIEFLY. PATIENT WEAKLY MOVES ALL EXTREMITIES TO NOXIOUS STIMULI. SCLERAL EDEMA NOTED. SCLERA JAUNDICED. LEFT UPPER LUNG LOBE HAS INSPIRATORY WHEEZE; ALL OTHER LUNG LOBES CLEAR TO AUSCULTATION. PATIENT ON VENT SETTINGS OF AC 16, TV 500, PEEP 5 AND 30% FIO2. PATIENT IN ST, HR IN THE 1-TEENS. MAPS GREATER THAN 65 ON LEVOPHED AT 2 MCG/ MINUTE. VASOPRESSIN ON SB. MILD ABD DISTENTION NOTED. ABD APPEARS TENDER. HYPOACTIVE BOWEL SOUNDS NOTED. ILEOSTOMY TO R LQ DRAINING MINIMAL SEROSANGUINEOUS FLUID. ANTON TO MIDLINE ABD. STACY X 2 TO ABD; BOTH DRAINING LARGE AMOUNTS OF SEROSANGUINEOUS FLUID. OG CLAMPED. LAST BOWEL MOVEMENT DOCUMENTED YESTERDAY. ATKINSON IN PLACE; URINE JEFF IN COLOR. SCANT OUTPUT THIS AM. SCATTERED BRUISES NOTED. SKIN PALE, COOL AND DRY. LR INFUSING AT 150 MLS/ HOUR, FENTANYL DRIP AT 50 MCG/ HOUR, PROPOFOL AT 15 MCG/ KG/ MINUTE, TPN AT 65 MLS/ HOUR. BED LOW, CALL LIGHT IN REACH. MOTHER AT BEDSIDE. CARE CONTINUES.
[2023-09-25 09:00] LABS: Vancomycin, Trough 25.5 ug/mL (5.0-10.0)
--- NOTE | 2023-09-25 09:45 | NUR ---
DR. DIOP UPDATED ON PATIENT STATUS. INFORMED THAT LEVOPHED ON SB. INFORMED THAT WBC INCREASED FROM 17.24 TO 32.40. INFORMED THAT AMMONIA 53. INFORMED THAT PATIENT ONLY HAD 205 MLS OF URINE OUTPUT ON FOREST RESOURCE SPECIALIST AND THAT PATIENT HAS HAD NONE OUT YET THIS AM. INFORMED THAT STACY DRAINS HAD LARGE OUTPUT ON FOREST RESOURCE SPECIALIST AND WERE HOOKED UP THIS AM TO LOW INTERMITTENT WALL SUCTION. INFORMED THAT OG CLAMPED OVERNIGHT. INFORMED THAT PATIENT'S BLOOD SUGARS HAVE BEEN IN THE 200S AND NO COVERAGE ORDERED. DR. DIOP STATED THAT SHE WILL PUT ORDERS IN.
--- NOTE | 2023-09-25 11:20 | NUR ---
DR. VILLAVICENCIO HERE TO SEE PATIENT. INFORMED OF STACY DRAINAGE LAST NIGHT AND TODAY. SPOKE WITH PATIENT'S 2 SISTERS. NO ORDERS RECEIVED AT THIS TIME.
--- NOTE | 2023-09-25 12:30 | NUR ---
PATIENT AFEBRILE. HR IN THE 1-TEENS. MAPS GREATER THAN 65. LEVOPHED AND VASOPRESSIN ON SB. PATIENT REMAINS INTUBATED BUT ON SEDATION VACATION. PATIENT ABLE TO FOLLOW SIMPLE COMMANDS. OG TO LIS. NO OTHER ACUTE CHANGES TO NOTE ON AT THIS TIME. CARE CONTINUES.
--- NOTE | 2023-09-25 16:50 | NUR ---
PATIENT EXTUBATED AND ON 4 L NC SATTING MID TO HIGH 90S. OG REMOVED. NG REPLACED. NG CONNECTED TO LOW INTERMITTENT WALL SUCTION. RESTRAINTS REMOVED.
--- NOTE | 2023-09-25 19:15 | NUR ---
SHIFT SUMMARY PATIENT EXTUBATED THIS SHIFT. PATIENT ALERT AND ORIENTED. PATIENT GIVEN PRN FENTANYL PUSHES IN ADDITION TO DRIP FOR COMPLAINTS OF PAIN TO STOMACH AND NOW TO BACK. PATIENT ON AIRVO WORK OF BREATHING HAS INCREASED AND WAS NOT ABLE TO TOLERATED BIPAP WITH NG IN PLACE. HR AND BP REMAINED STABLE. LEVOPHED HAS BEEN OFF SINCE THIS AM. NO BM THIS SHIFT. ATKINSON DRAINED MINIMAL AMOUNT OF JEFF COLORED URINE; DR. DIOP IS AWARE OF MINIMAL OUTPUT. LARGE AMOUNTS OF DRAINGE FROM BOTH STACY DRAINS AND OG TUBE. LR DC'D AND LASIX GIVEN FOR SHORTNESS OF BREATH AT END OF SHIFT. FAMILY HAS REMAINED AT SIDE MOST OF DAY. REPORT GIVEN TO ASSUMING MAXILLOFACIAL SURGEON NURSE.
--- NOTE | 2023-09-25 20:00 | NUR ---
ASSUMED CARE AT 1900 PT LAYING IN BED WITH HIS MOTHER AND SISTER AT BEDSIDE AT SHIFT CHANGE. HE IS ORIENTED X4 BUT PROFOUNDLY WEAK; MOST OF THE TIME SLEEPS WHEN NOT STIMULATED; HE BECOMES RESTLESS WITH THE AIRVO AND DID NOT TOLERATE THE BIPAP MASK DURING DAY SHIFT; BECOMES EXHAUSTED EASILY AND HE MUST TAKE A BREATH BETWEEN WORDS AT TIMES. PAIN RATING 8/10 DURING ASSESSMENT; PRN FENTANYL PUSH GIVEN AND HELPFUL; FENTANYL CHIEF HUMAN RESOURCES OFFICER ALSO INFUSING AT 50MCG/MIN. ON AIRVO WITH SETTINGS 60L AND FIO2 80%; RR 25-30'S; WORK OF BREATHING LABORED; NONPRODUCTIVE COUGH NOTED. AFEBRILE. HR 120'S. SBP 120-150'S; ART LINE TO RT RADIAL NOTED. NG, STACY DRAIN #1, AND STACY DRAIN #2 TO LIS; ANTON TO MIDLINE IN PLACE; ILIOSTOMY WITH MINIMAL SEROUS DRAINAGE. ATKINSON IN PLACE AND DRAINING TO GRAVITY; LASIX GIVEN AT SHIFT CHANGE. TPN INFUSING AT 65ML/HR. SEE SHIFT ASSESSMENT FOR FULL ASSESSMENT.
[2023-09-25 20:29] LABS: Vancomycin, Random 17.4 ug/mL
[2023-09-25 21:24] LABS: PCO2 Arterial 62.4 mmHg (35-45); PO2 Arterial 69.4 mmHg (80-100); pH Blood Arterial 7.31 (7.35-7.45)
--- NOTE | 2023-09-25 22:33 | NUR ---
UPDATE CALL MADE TO DR DIOP REGARDING SPO2 READING 88-90% AFTER PLACING PT ON BIPAP. HE DID NOT TOLERATE THE BIPAP MASK BEFORE SO HE WAS MEDICATED WITH ATIVAN WHEN PLACED ON MASK. BIPAP SETTINGS 16/8, FIO2 100%, RR 18, tV 600'S WITH SPO2 READING 88-90%; HE CONT OPENS EYES TO VERBAL STIMULATION. NEW ORDERS PROVIDED FOR AN ABG. ONCE THOSE VALUES WERE RESULTED, SHE WAS CALLED AGAIN WITH THE RESULTS. NO NEW ORDERS AT THIS TIME; PLAN TO USE PRECEDEX OVER ATIVAN IF HE STARTS TO NOT TOLERATE BIPAP MASK.
[2023-09-26] VITALS (17 sets, daily range): BP systolic 118–163; BP diastolic 76–97
[2023-09-26 04:22] LABS: Hematocrit 31.6 % (37.0-53.0); Hemoglobin 10.5 g/dL (13.5-17.5); Mean Corpuscular HGB 29.2 pg (26.0-34.0); Mean Corpuscular HGB Conc 33.2 g/dL (31.5-36.5); Mean Platelet Volume 9.9 fL (9.1-12.4); NRBC ABSOLUTE 0.29 K/mm3 (0.00-0.02); NRBC Auto 0.7 /100 WBC (0.0-0.2); Platelet Count 116 K/mm3 (150-400); RDW Coefficient Variation 16.8 % (11.7-14.2); RDW Standard Deviation 50.4 fL (35.1-46.3); White Blood Cell Count 43.44 K/mm3 (4.00-11.30)
[2023-09-26 04:23] LABS: Base Excess Venous 6.2 mmol/L; Mean Corpuscular Volume 88 fL (80-100); PCO2 Venous 57.4 mmHg (38-42); pH Blood Venous 7.35 (7.34-7.37)
[2023-09-26 04:41] LABS: International Normalized Ratio 1.26; Prothrombin Time Results 13.1 Sec (9.7-11.5)
[2023-09-26 04:48] LABS: Albumin, Blood 1.6 g/dL (3.4-5.0); Albumin/Globulin Ratio 0.6 (0.8-1.8); Bilirubin, Total 1.5 mg/dL (0.1-1.0); Calcium, Blood 8.7 mg/dL (8.5-10.1); Creatinine, Blood 0.88 mg/dL (0.60-1.20); Globulin, Blood 2.9 g/dL (2.2-4.0); Magnesium, Blood 1.9 mg/dL (1.6-2.4); Phosphorus, Blood 4.6 mg/dL (2.5-4.9); Potassium, Blood 5.5 mmol/L (3.5-5.5); Total Protein, Blood 4.5 g/dL (6.4-8.2)
[2023-09-26 05:00] LABS: BAND PERCENT MAN 11 % (0-8); BASOPHILS PERCENT MAN 0 % (0-2); EOSINOPHILS PERCENT MAN 0 % (0-6); METAMYELOCYTE ABSOLUTE MAN 0.43 K/mm3 (0.00-0.00); METAMYELOCYTE PERCENT MAN 1 % (0-0); MONOCYTES ABSOLUTE MAN 2.17 K/mm3 (0.16-1.47); MONOCYTES PERCENT MAN 5 % (4-13); MYELOCYTE PERCENT MAN 3 % (0-0); NEUTROPHILS ABSOLUTE MAN 39.53 K/mm3 (1.96-9.15); SEG NEUTROPHILS PERCENT MAN 80 % (41-73); TOTAL CELLS COUNTED 100
--- NOTE | 2023-09-26 06:32 | NUR ---
END OF SHIFT SUMMARY NO ACUTE EVENTS SINCE PREVIOUS NOTE. HE WAS ABLE TO WEAR THE BIPAP FOR A TOTAL OF 7 HOURS WITH BREAKS ON AIRVO T/O THE NIGHT; AIRVO SETTINGS 60L FIO2 80% AND BIPAP 16/8, FIO2 100%; RR 14-20; WEAK NONPRODUCTIVE WET COUGH NOTED. HE CONT TO BE ORIENTED X4 AND SLEPT FOR MOST OF THE NIGHT; FENTANYL CONT AT 50MCG/HR; ONLY ONE PRN OF FENTANYL AND ONE OF ATIVAN GIVEN ALL SHIFT. AFEBRILE. HR 110-15. SBP 120-150. OG TO LIS WITH NO OUTPUT; STACY DRAINS TO SUCTION ALL NIGHT, TOTAL OF 1200ML OUTPUT; ILIOSTOMY DEVICE CHANGED D/T LEAKING SMALL AMOUNT OF SEROSANGUINEOUS FLUID AND DEVICE NOT ADHERING TO HIM. ATKINSON IN PLACE WITH 900ML OUTPUT. TPN INFUSING AT 65ML/HR. WILL REPORT TO AM RN WHEN AVAILABLE PT MOTHER AT BEDSIDE ALL NIGHT AND WAS APPROPRIATE WITH STAFF AND PT.
--- NOTE | 2023-09-26 08:30 | NUR ---
INITIAL ASSESSMENT PATIENT SLEEPING SOUNDLY UPON ENTERING ROOM. PATIENT LETHARGIC, SLOW TO RESPOND. PATIENT ORIENTED X 4. PATIENT AFEBRILE. PATIENT SLEEPS WHEN NOT STIMULATED. PATIENT WEAK BUT ABLE TO MOVE ALL EXTREMITIES. SCLERA EDEMATOUS AND YELLOW. PATIENT ON BIPAP SETTINGS OF 16/8 AND 100% FIO2. LUNGS CLEAR T/O, DIMINISHED IN BASES. PATIENT SOB WITH EXERTION. PATIENT HAS OCCASIONAL, NONPRODUCTIVE COUGH. PATIENT IN ST, HR IN THE LOW 100S. SBP 140S TO 150S. ARTERIAL LINE TO R RADIAL. PATIENT EDEMATOUS. SCDS IN PLACE. ABD MODERATELY DISTENDED, TENDER, WITH HYPOACTIVE BOWEL SOUNDS NOTED. ILEOSTOMY TO RLQ DRAINING SCANT AMOUNT OF SEROSANGUINEOUS FLUID. NG TO LIS; NO DRAINAGE NOTED. ATKINSON DRAINING JEFF COLORED URINE. STACY 1 AND 2 BOTH DRAINING SEROSANGUINEOUS FLUID. ANTON TO MIDLINE ABD. SCATTERED BRUISES NOTED. TPN AT 65 MLS/ HOUR. FENTANYL DRIP AT 50 MCG/ HOUR. BED LOW, CALL LIGHT IN REACH. FAMILY AT BEDSIDE. CARE CONTINUES.
--- NOTE | 2023-09-26 09:35 | NUR ---
DR. DIOP UPDATED ON PATIENT STATUS. INFORMED THAT INFORMATION TECHNOLOGY DATA ANALYST RN REPORTED THAT PATIENT ON BIPAP FOR TOTAL OF 7 HOURS LAST NIGHT. INFORMED THAT PATIENT PUT OUT 900 MLS URINE ON INFORMATION TECHNOLOGY DATA ANALYST. INFORMED THAT WBCS INCREASED THIS AM FROM YESTERDAY. NO ORDERS OBTAINED AT THIS TIME.
--- NOTE | 2023-09-26 11:30 | NUR ---
DR. PATRICKE HERE TO SEE PATIENT. UPDATED ON PATIENT. ORDER TO DC NG. NG REMOVED. STATED PATIENT COULD HAVE ICE CUBES. NO OTHER ORDERS RECEIVED AT THIS TIME.
--- NOTE | 2023-09-26 12:40 | NUR ---
PATIENT AFEBRILE. LUNGS COARSE. PATIENT ON AIRVO AT 50 L AND 93% FIO2. HR IN THE LOW 100S. SBP IN THE 130S. NS TAKEN OUT THIS AM PER DR. VILLAVICENCIO. BLOOD SUGAR 130; NO COVERAGE INDICATED. CARE CONTINUES.
--- NOTE | 2023-09-26 13:16 | NUR ---
DR. VILLAVICENCIO CALLED AND INFORMED THAT ENEMA HAS NOT COME BACK OUT. DR. VILLAVICENCIO STATED TO HOLD FUTURE ENEMAS AND LET DR. STAPLES KNOW THIS BEFORE ADMINISTERING ANY MORE. NURSE NOTIFY ORDER PLACED.
--- NOTE | 2023-09-26 16:12 | NUR ---
HR IN THE LOW 100S. SBP IN THE 150S. NO ACUTE CHANGES TO NOTE ON. CARE CONTINUES.
--- NOTE | 2023-09-26 18:44 | NUR ---
SHIFT SUMMARY PATIENT REMAINED LETHARGIC AND SLEEPING UNLESS STIMULATED BY NURSE OR FAMILY. PATIENT REMAINED ORIENTED BUT DID HAVE A COUPLE EPISDOES OF CONFUSION. PATIENT MOSTLY CALM AND SLEEPING BUT DID BECOME ANXIOUS A COUPLE OF TIMES. PATIENT REMAINED AFEBRILE. PATIENT SOB WITH EXERTION. PATIENT ON BIPAP 16/8 AND 100% HALF OF SHIFT. FIO2 DECREASED TO 70% THROUGHOUT DAY. PATIENT ON AIRVO FOR A COUPLE BREAKS TODAY. PATIENT TOLERATED AIRVO BETTER AT 50 L INSTEAD OF 60 L AND WAS ON 90 TO 93% FIO2. PATIENT REMAINED ST, HR LOW 100S TO 1-TEENS. SBP 120S TO 150S. PATIENT EDEMATOUS; MOST NOTICEABLE INCREASE IN THIGHS AND ABD WITH 2+ PITTING EDEMA. NO BM TODAY. PATIENT GIVEN ROWASA ENEMA PER DR. STAPLES ORDER. PADS PLACED UNDER PATIENT FOR ENEMA EVACUATION BUT NEVER DID. DR. DIOP INFORMED AND DR. VILLAVICENCIO INFORMED. DR. VILLAVICENCIO STATED TO HOLD NEXT ENEMA UNTIL DR. STAPLES SPOKE TO TOMORROW. MID ABD STACY DRAINED LARGE AMOUNT OF SEROSANGUINEOUS FLUID. RLQ STACY DRAINED SMALL AMOUNT OF FLUID. NO OUTPUT FROM ILEOSTOMY THIS SHIFT. ATKINSON DRAINED 1200 MLS OF JEFF COLORED URINE THIS SHIFT. SCHEDULED LASIX GIVEN. LASIX INCREASED TO BID FROM DAILY. DRESSING TO RLQ STACY AND OSTOMY DEVICE CHANGED THIS SHIFT. PATIENT RECIEVED COMPLETE CHG BED BATH THIS SHIFT. TPN REMAINS INFUSING AT 65 MLS/ HOUR. NS TKO. FENTANYL AT 50 MCG/ HOUR. PATIENT NEEDED PRN FENTANYL PUSHES TO HELP WITH STOMACH AND CHRONIC BACK PAIN THIS SHIFT WELL. BLOOD SUGARS 130 AND 122. NG REMOVED PER DR. VILLAVICENCIO THIS SHIFT AND STATED OKAY FOR PATIENT TO HAVE OCCASIONAL ICE CUBES. FAMILY HERE ALL DAY. PATIENT APPEARS WITHOUT PAIN OR DISTRESS AT THIS TIME. BED LOW, CALL LIGHT IN REACH. REPORT WILL BE GIVEN TO ASSUMING ADULT CROSSING GUARD NURSE SHORTLY.
[2023-09-27] VITALS (54 sets, daily range): BP systolic 118–168; BP diastolic 69–97
[2023-09-27 04:31] LABS: Hematocrit 31.3 % (37.0-53.0); Hemoglobin 10.3 g/dL (13.5-17.5); Mean Corpuscular HGB 30.1 pg (26.0-34.0); Mean Corpuscular HGB Conc 32.9 g/dL (31.5-36.5); Mean Corpuscular Volume 92 fL (80-100); Mean Platelet Volume 9.6 fL (9.1-12.4); NRBC ABSOLUTE 0.92 K/mm3 (0.00-0.02); Platelet Count 122 K/mm3 (150-400); RDW Coefficient Variation 17.2 % (11.7-14.2); RDW Standard Deviation 54.1 fL (35.1-46.3); Red Blood Cell Count 3.42 M/mm3 (4.30-5.90); White Blood Cell Count 46.69 K/mm3 (4.00-11.30)
[2023-09-27 04:47] LABS: Bun/Creatinine Ratio 33.8 (12.0-20.0); Calcium, Blood 8.8 mg/dL (8.5-10.1); Creatinine, Blood 0.86 mg/dL (0.60-1.20); Potassium, Blood 5.2 mmol/L (3.5-5.5)
[2023-09-27 05:03] LABS: BAND PERCENT MAN 13 % (0-8); BASOPHILS PERCENT MAN 0 % (0-2); EOSINOPHILS PERCENT MAN 0 % (0-6); LYMPHOCYTES PERCENT MAN 3 % (21-46); METAMYELOCYTE PERCENT MAN 3 % (0-0); MONOCYTES PERCENT MAN 3 % (4-13); MYELOCYTE PERCENT MAN 3 % (0-0); NEUTROPHILS ABSOLUTE MAN 41.08 K/mm3 (1.96-9.15); SEG NEUTROPHILS PERCENT MAN 75 % (41-73); TOTAL CELLS COUNTED 100
--- NOTE | 2023-09-27 06:17 | NUR ---
END OF SHIFT SUMMARY NO ACUTE EVENTS OVER NIGHT. HE WAS ABLE TO WEAR THE BIPAP FOR MOST OF THE NIGHT WITH SETTINGS 16/8, FIO2 70%; WHEN ON AIRVO SETTINGS 50L AT 70%, CONT TO HAVE COARSE BREATH SOUNDS T/O THE NIGHT; CONT TO HAVE WET NONPRODUCTIVE WEAK COUGH. HE IS ORIENTED X3-4 AND CAN BE CHALLENGING TO COMMUNICATE D/T RESPIRATORY EFFORTS; CAN ANSWER Y/N QUESTIONS; CAN BECOME IRRITALBE WHEN HE IS NOT BEING UNDERSTOOD; COMMUNICATION BOARD AND PEN/PAPER PROVIDED. FENATNYL CONT TO INFUSE AT 50MCG/HR; PRN PUSHES AVAILABLE AND GIVEN. AFEBRILE. HR 110-120'S. SBP 140-160'S; ART LINE TO RT RADIAL NOTED. STACY TO SUCTION WITH 1050ML OUTPUT; ILIOSTOMY WITH NO OUTPUT THIS SHIFT; ANTON DRESSING TO MIDLINE NOTED. ATKINSON IN PLACE WITH 1400ML OUTPUT. CENTRAL LINE TO RT IJ PATENT, PICC TO LUE PATENT AND INFUSING, POWERGLIDE TO RUE PATENT. PT MOTHER AT BEDSIDE ALL SHIFT; APPROPORIATE AND HELPFUL WITH PATIENT. WILL REPORT TO AM RN WHEN AVAILABLE. AROUND 0000 PT STARTED C/O SEVERE PAIN TO HIS LEFT EAR, FEELING LIKE HE IS "UNDER WATER" OR THAT HIS EARS NEED TO "POP"; PRN FENTANYL GIVEN AND HELPFUL, WARM COMPRESS USED AND HELPFUL.
--- NOTE | 2023-09-27 08:45 | NUR ---
AM NOTE... ASSUMED CARE OF PT AT 0700. PT IS ON THE BIPAP AT 16/8 AND 70% WITH O2 SATS>92% L/S VERY COARSE T/O MORE SO ON THE RIGHT THAN THE LEFT. HE IS IN SINUS TACH IN THE 100'S-110'S. BP IS STABLE. ART LINE TO THE RIGHT RADIAL IS STABLE. RIGHT IJ CENTRAL LINE IS STABLE. BT PRESENT AND HYPOACTIVE, STACY 1 AND STACY 2 SITES ARE STABLE WITH SEROSANGUINEOUS FLUID DRAINING TO SUCTION. OSTOMY SITE IS STABLE, NO STOOL NOTED IN OSTOMY BAG JUST A SMALL AMOUNT OF CLEAR FLUIDS. 2+ EDEMA NOTED T/O HIS BLE AND TRUNK, 1+ EDEMA NOTED TO HIS BUE. ATKINSON IS PATENT AND DRAINING TO GRAVITY. WILL CONTINUE TO MONITOR.
[2023-09-27 09:08] LABS: Vancomycin, Trough 27.2 ug/mL (5.0-10.0)
--- NOTE | 2023-09-27 19:03 | NUR ---
SHIFT SUMMARY... NO ACUTE NEGATIVE CHANGES NOTED THIS SHIFT. PT'S VS STABLE T/O T THIS SHIFT. PT HAS BEEN ON THE AIRVO FOR APROX 5HRS THIS SHIFT AND DID WELL. PT HAS BEEN MEDICATED FOR PAIN PER EMAR WITH GOOD RESULT. WILL CONTINUE TO MONITOR UNTIL REPORT IS GIVEN TO ONCOMING RN
--- NOTE | 2023-09-27 21:55 | NUR ---
ASSUMPTION OF CARE BEDSIDE SHIFT REPORT RECEIVED FROM DEDRICK RN. PT RESTING IN BED, SLEEPING BUT AROUSABLE. PT ASNWERS QUESTIONS APPROPRIATELY, FOLLOWS COMMANDS AND IS ABLE TO MAKE NEEDS KNOWN, PT IS SOFT SPOKEN. PT WEAK BUT MOVES ALL EXTREMITIES EQUALLY BILATERALLY. PT MOTHER AT THE BEDSIDE. HR 100-110'S SINUS, MAP >65, ART LINE IN PLACE TO RIGHT RADIAL, CHG DRESSING AND ARM BOARD IN PLACE. SITE IS SOFT NO SIGNS OF HEMATOMA NOTED. PT ON AIRVO 50L 66% AT TIME OF ASSESSMENT, OXYGEN SATURATION >95%. ANTON DRESSING IN PLACE TO MIDLINE ABDOMEN WITH GOOD SUCTION. SMALL AREA OF DRAINAGE NOTED TO ABDOMEN. STACY DRAIN 1 AND STACY DRAIN 2 SITES STABLE, SET TO CONTINUOUS SUCTION WITH SEROSANGUINEOUS FLUID OUTPUT. OSTOMY SITE TO RIGHT ABDOMEN WITH APPLIANCE IN PLACE. NO STOOL NOTED IN OSTOMY BAG JUST SMALL AMOUNT OF CLEAR OUTPUT. ATKINSON PATENT DRAINING YELLOW URINE TO GRAVITY. CENTRAL LINE IN PLACE TO RIJ SL, PICC LINE IN PLACE TO TYREE INFUSING, POWERGLIDE IN PLACE TO NERI SL. FENTANYL HORSE SHOW JUDGE INFUSING AT 50MCG/HR, PRN FENTANYL GIVEN WELL PER EMAR. NS TKO, TPN INFUSING AT 65MLS/HR. PT HAS COMPLAINED OF PAIN RATED 6-8/10 DURING ASSESSMENT, MEDICATED PER EMAR. PT HAS 2+ EDEMA NOTED TO HIS HANDS AND BLE. BED IN LOWEST POSITION, CALL LIGHT WITHIN REACH. CARE CONTNIUES.
[2023-09-28] VITALS (53 sets, daily range): BP systolic 126–175; BP diastolic 73–146
[2023-09-28 03:43] LABS: Hematocrit 29.5 % (37.0-53.0); Hemoglobin 9.3 g/dL (13.5-17.5); Mean Corpuscular HGB 29.7 pg (26.0-34.0); Mean Corpuscular HGB Conc 31.5 g/dL (31.5-36.5); Mean Corpuscular Volume 94 fL (80-100); Mean Platelet Volume 9.8 fL (9.1-12.4); NRBC ABSOLUTE 0.54 K/mm3 (0.00-0.02); NRBC Auto 1.9 /100 WBC (0.0-0.2); Platelet Count 89 K/mm3 (150-400); RDW Coefficient Variation 17.3 % (11.7-14.2); RDW Standard Deviation 55.2 fL (35.1-46.3); Red Blood Cell Count 3.13 M/mm3 (4.30-5.90); White Blood Cell Count 28.63 K/mm3 (4.00-11.30)
[2023-09-28 03:51] LABS: Albumin, Blood 1.5 g/dL (3.4-5.0); Anion Gap 0 mmol/L (6-16); Blood Urea Nitrogen 33 mg/dL (8-24); Bun/Creatinine Ratio 41.7 (12.0-20.0); CO2, Blood 39 mmol/L (21-32); Calcium, Blood 8.7 mg/dL (8.5-10.1); Chloride, Blood 104 mmol/L (98-108); Creatinine, Blood 0.79 mg/dL (0.60-1.20); Glomerular Filtration Rate 111 (60-); Glucose, Blood 119 mg/dL (70-99); Phosphorus, Blood 3.7 mg/dL (2.5-4.9); Potassium, Blood 4.5 mmol/L (3.5-5.5); Sodium, Blood 143 mmol/L (136-145); Vancomycin, Random 17.3 ug/mL
[2023-09-28 04:25] LABS: BAND PERCENT MAN 3 % (0-8); BASOPHILS PERCENT MAN 0 % (0-2); EOSINOPHILS PERCENT MAN 0 % (0-6); LYMPHOCYTES ABSOLUTE MAN 0.85 K/mm3 (0.84-5.20); LYMPHOCYTES PERCENT MAN 3 % (21-46); MONOCYTES ABSOLUTE MAN 0.57 K/mm3 (0.16-1.47); MONOCYTES PERCENT MAN 2 % (4-13); MYELOCYTE ABSOLUTE MAN 1.43 K/mm3 (0.00-0.00); MYELOCYTE PERCENT MAN 5 % (0-0); NEUTROPHILS ABSOLUTE MAN 25.76 K/mm3 (1.96-9.15); SEG NEUTROPHILS PERCENT MAN 87 % (41-73); TOTAL CELLS COUNTED 100
--- NOTE | 2023-09-28 06:31 | NUR ---
SHIFT SUMMARY PT RESTING IN BED, SLEEPING BUT AROUSABLE. PT ANSWERS QUESTIONS APPROPRIATELY, FOLLOWS COMMADNS AND IS ABLE TO MAKE NEEDS KNOWN. PT IS SOFT SPOKEN, WEAK BUT MOVES ALL EXTREMITIES EQUALLY BILATERALLY. PT MOTHER AT THE BEDSIDE. HR 90-100'S SINUS, MAP >65. ART LINE IN [place] TO RIGHT RADIAL, ARM BOARD IN PLACE, SMALL AMOUNT OF BLEEDING NOTED, GUAZE IN PLACE, SITE IS SOFT WITH NO FORMATION OF HEMATOMA NOTED. PT ON AIRVO 50L 59%, OXYGEN SATURATION >95%. ANTON DRESSING IN PALCE TO MID ABDOMEN WITH GOOD SUCTION, SMALL AMOUNT OF DRAINAGE NOTED TO DRESSING OUTLINED IN [place]. STACY DRAIN 1 AND STACY DRAIN 2 SITES STABLE, SET TO CONTINUOUS SUCTION WITH SEROSANGUINEOUS FLUID OUTPUT. OSTOMY SITE TO RIGHT ABDOMEN WITH APPLIANCE IN PLACE. NO STOOL NOTED IN OSTOMY BAG, JUST SMALL SMOUNT OF CLEAR/YELLOW OUTPUT. ATIKNSON PATENT DRAINING YELLOW URINE TO GRAVITY. CENTRAL LINE IN APLCE TO RIJ SL, PICC LINE IN PLACE TO TYREE INFUSING, POWERGLIDE IN PLACE TO NERI SL. FENTANYL AUTOMATIC FOLDER SEAMER INFUSING AT 50MCG/HR, PRN FENTANYL GIVEN WELL PER EMAR. NS TKO, TPN INFUSING AT 65MLS/HR. PT HAS COMPLAINED OF PAIN 6-8/10 THROUGHOUT THIS SHIFT, MEDICATED PER EMAR. PT HAS 2+ EDEMA NOTED IN BLE AND HANDS. BED IN LOWEST POSITION, CALL LIGHT WITHIN REACH. CARE CONTINUES
--- NOTE | 2023-09-28 08:53 | NUR ---
AM NOTE... ASSUMED CARE OF PT AT 0700, PT IS A&OX4, HE HAS BEEN ON THE AIRVO ALL NIGHT PER NOC SHIFT RN. PT'S AIRVO SETTINGS ARE 50L AND 50% WITH O2 SATS>95%. L/S COARSE CRACKLES T/O DIM IN THE BASES. RR IN THE 18-20'S. HE IS IN ST IN THE 100'S-110'S BP IS STABLE. ART LINE TO THE RIGHT RADIAL IS LEAKING/OOZING AT THIS TIME, GAUZE DRESSING AND ARM BOARD IN PLACE. THE EDEMA TO THE PT'S RIGHT HAND HAS GREATLY IMPROVED FROM YESTERDAY THE PT'S LEFT HAND STILL HAS TRACE EDEMA NOTED. HIS BLE/ABD/TRUNK CONTINUE TO HAVE 2+ EDEMA. NO CHANGES TO THE PT'S 2 STACY DRAINS THEY ARE SET TO SUCTION. NO CHANGE TO THE PICCO DRAIN TO THE MIDLINE INCISION. PT C/O OF 6/10 ABD PAIN AT THIS TIME, FENTANYL DIRECTOR OF OUTSIDE SALES IS RUNNING PER ORDERS AT 50MCG/HR WITH PRN IV PUSHES FOR BREAKTHROUGH PAIN. ATKINSON IS PATENT AND DRAINING TO GRAVITY. WILL CONTINUE TO MONITOR.
--- NOTE | 2023-09-28 12:21 | NUR ---
PT UPDATE.... THE PT'S RIGHT RADIAL ART LINE WAS PULLED BY THIS RN, AT 1130, 15MINS OF MANUAL PRESSURE WAS HELD BY THIS RN. NO SWELLING, BLEEDING OR HEMATOMA NOTED AT THIS TIME. AT 1145 THE PT WAS TAKEN OFF OF AIRVO AT 50L AND 45% AND SWITCHED TO HI FLOW NC TO 10L WHICH WAS TITRATED DOWN TO 5L WITH O2 SATS>96%. WILL CONTINUE TO MONITOR.
--- NOTE | 2023-09-28 18:15 | NUR ---
SHIFT SUMMARY... THE PT CONTINUES TO BE ON 5L HI FLOW NC WITH O2 SATS>92%. PT CONTINUES TO HAVE A WEAK COUGH, HE ALSO HAS SECRETIONS THAT HE IS UNABLE TO COUGH UP CAUSING A GURGLING SOUND WITH HIS BREATHING. THE PT TOLERATES THE 5L WELL BUT DESATS DOWN TO 85-86% WITH LAYING FLAT TO CHANGE THE LINENS BUT HE RECOVERS QUICKLY. THE PT'S STACY DRAIN FLUID IS MORE PINK THAN RED THIS SHIFT, THE AMOUNT OUT OF JP1 WAS 800 AND JP2 WAS 700. PT'S ATKINSON DRAINED 1900MLS. THE OSTOMY 20MLS OF LIGHT PINK SEROUS FLUID. THE PT DID NOT PASS IS SPEECH EVAL AND IS NPO WITH ORAL CARE Q4HRS. TPN IS STILL RUNNING AT 65MLS/HR. THE PT WAS DOWNGRADED TO PCU STATUS AND TRANSFERED OUT TO PCU 2. REPORT WAS GIVEN TO JAIME HOPSON. ALL OF THE PT'S BELONGINGS WERE PACKED AND SENT WITH THE PT. THIS RN OFFERED TO INFORM THE PT'S MOTHER BUT THE PT REFUSED AND STATED HE WOULD CALL HER HIMSELF.
--- NOTE | 2023-09-28 19:01 | NUR ---
Transfer note Pt to room at approx 1750; bp elevated. Pt reporting increased pain with transfer, medicated with fentanyl. STACY drains x2 set to suction. TPN infusing. SPORTS MANAGER infusing. Will continue to monitor.
--- NOTE | 2023-09-29 00:32 | NUR ---
ASSUMPTION OF CARE: THIS RN ASSUMED CARE OF PT AT APPROX 1900. BEDSIDE REPORT COMPLETED. PT ALERT, ORIENTED X4 W/ MOTHER PRESENT AT THE BEDSIDE. PT W/ O2 DESAT AT SHIFT CHANGE, RT TO BEDSIDE. PT PLACED ON AIRVO 50L W/ FIO2 50-55%. ABLE TO TRANSITION FROM AIRVO TO 5L O2 HFNC. OTHER VSS. FENTANYL OPERATING MANAGER CONTINUES INFUSING PER EMAR, PT REPORTS ADEQUATE PAIN MANAGEMENT W/ OPERATING MANAGER. STACY DRAINS W/ SEROSANGUINEOUS OUTPUT NOTED; ON ASSESSMENT, SUCTION SET TO CONTINUOUS LOW AT TIME OF ASSUMTION OF CARE. SUCTION CHANGED TO LOW-INTERMITTENT PER NURSE NOTIFY ORDER FROM MD STAPLES. TPN INFUSING PER ORDERS. PT REMAINS STRICT NPO PER SPEECH THERAPY ORDERS, ORAL CARE PROVIDED TO SUCTION. ATKINSON CATH PATENT & DRAINING. OSTOMY W/ MINIMAL PINK SEROUS FLUID NOTED THUS FAR. REPOSITIONED W/ ASSISTANCE. CALL LIGHT IN REACH.
[2023-09-29 03:40] VITALS: BP 156/96
--- NOTE | 2023-09-29 05:13 | NUR ---
END OF SHIFT NOTE: NO ACUTE EVENTS OVERNIGHT. PT REMAINS ALERT, ORIENTED X4. IMPROVED AFFECT OVERNIGHT, PT SMILING & SHARING STORIES W/ STAFF. HR 100'S, SINUS TACH ON TELE. SBP 140-160'S, DENIES CHEST PAIN/PRESSURE. SPO2 >90% ON 5L O2 HFNC, DENIES SOB. RESPIRATIONS EVEN & UNLABORED. AFEBRILE. FENTANYL REPAIRER SWITCHGEAR CONTINUES INFUSING AT 50 MCG/HR PER EMAR, FENTANYL IV PUSH GIVEN PER ORDERS FOR BREAKTHROUGH PAIN. STACY DRAINS W/ 1325ML OUTPUT THUS FAR, SEROSANGUINEOUS IN APPEARANCE; DRAINING TO LOW INTERMITTENT SUCTION. ANTON DRESSING TO MID-ABD, SMALL AMOUNT OF DRAINAGE PRESENT W/O CHANGES OVERNIGHT. OSTOMY W/ MINIMAL SEROUS FLUID OUTPUT. ATKINSON CATH PATENT, DRAINING JEFF URINE TO GRAVITY. TPN INFUSING AT GOAL RATE 65 ML/HR. PT REMAINS STRICT NPO, ORAL CARE TO SUCTION PROVIDED. REPOSITIONED T/O SHIFT. NO OTHER NEEDS AT THIS TIME. PT'S MOTHER REMAINS AT BEDSIDE. CALL LIGHT IN REACH, BED IN LOWEST POSITION. WILL REPORT TO ONCOMING RN.
[2023-09-29 07:41] VITALS: BP 151/82
[2023-09-29 07:46] LABS: Hematocrit 27.8 % (37.0-53.0); Hemoglobin 10.1 g/dL (13.5-17.5); Mean Corpuscular HGB 36.1 pg (26.0-34.0); Mean Corpuscular HGB Conc 36.3 g/dL (31.5-36.5); Mean Platelet Volume 9.9 fL (9.1-12.4); NRBC Auto 0.6 /100 WBC (0.0-0.2); Platelet Count 83 K/mm3 (150-400); RDW Coefficient Variation 19.5 % (11.7-14.2); RDW Standard Deviation 57.9 fL (35.1-46.3); White Blood Cell Count 15.85 K/mm3 (4.00-11.30)
[2023-09-29 07:56] LABS: Mean Corpuscular Volume 99 fL (80-100)
[2023-09-29 08:47] LABS: BAND PERCENT MAN 5 % (0-8); BASOPHILS PERCENT MAN 0 % (0-2); EOSINOPHILS PERCENT MAN 0 % (0-6); LYMPHOCYTES ABSOLUTE MAN 1.42 K/mm3 (0.84-5.20); LYMPHOCYTES PERCENT MAN 9 % (21-46); METAMYELOCYTE ABSOLUTE MAN 0.15 K/mm3 (0.00-0.00); METAMYELOCYTE PERCENT MAN 1 % (0-0); MONOCYTES ABSOLUTE MAN 0.47 K/mm3 (0.16-1.47); MONOCYTES PERCENT MAN 3 % (4-13); MYELOCYTE ABSOLUTE MAN 0.95 K/mm3 (0.00-0.00); MYELOCYTE PERCENT MAN 6 % (0-0); NEUTROPHILS ABSOLUTE MAN 12.83 K/mm3 (1.96-9.15); SEG NEUTROPHILS PERCENT MAN 76 % (41-73); TOTAL CELLS COUNTED 100
[2023-09-29 09:36] LABS: Magnesium, Blood 2.2 mg/dL (1.6-2.4)
[2023-09-29 09:40] LABS: Albumin, Blood 1.6 g/dL (3.4-5.0); Anion Gap 1 mmol/L (6-16); Blood Urea Nitrogen 31 mg/dL (8-24); CO2, Blood 40 mmol/L (21-32); Chloride, Blood 101 mmol/L (98-108); Glomerular Filtration Rate 111 (60-); Glucose, Blood 115 mg/dL (70-99); Phosphorus, Blood 3.2 mg/dL (2.5-4.9); Potassium, Blood 4.6 mmol/L (3.5-5.5); Sodium, Blood 142 mmol/L (136-145)
--- NOTE | 2023-09-29 09:50 | NUR ---
ASSUMED CARE REPORT FROM LENKA HOPSON AT 0700. PT RESTING IN BED. MOTHER AT BEDSIDE. PT A&OX 3. FOLLOWS COMMANDS. STATES HIS PAIN IS 6/10, ABD, SHARP. MARRIAGE PERFORMER CHANGED TO DILAUDID. ABD ROUND, SOFT, GENERALIZED TENDERNESS. BT X 4. ANTON DRESSING MIDLINE, SCANT DRAINAGE OUTLINED ON DRESSING. STACY DRAIN X 2 TO LIS, SEROSANGOUS DRAINAGE OUT. ILLEOSTOMY TO RLQ, SMALL LIQUID DRAINAGE OUT. PT REPORTS PASSING FLATLUS. ST ON MONITOR, RATE 100'S. BP STABLE. LUNGS COARSE THROUGHOUT. ON 2L VIA HFNC, DYSPNEIC c EXERTION. O2 SATS >95%. ATKINSON D/C'D THIS AM, ABLE TO URINATE POST REMOVAL. PICC TO LUE, POWERGLIDE TO RUE. PT UP TO CHAIR c PT/OT AT THIS TIME. WILL CONTINUE PLAN OF CARE.
[2023-09-29 11:56] VITALS: BP 146/83
--- NOTE | 2023-09-29 15:49 | NUR ---
ASSUMED CARE OF THIS TIME, REPORT RECEIVED FROM JEROME HOPSON.
[2023-09-29 16:01] VITALS: BP 151/94
--- NOTE | 2023-09-29 18:12 | NUR ---
ASSUME CARE; PT O2 ABLE TO TITRATE TO ROOMAIR SATS KEPT ABOVE 90%, HRR ST 100'S, SBP 150'S, AFEBRILE. PT ALERT AND ORIENTED X4 ABLE TO MAKE NEEDS KNOWN. FIELD REVIEWER PUMP STILL AT CURRENT DOSE 0.2MG WITH 10 MINS LOCKOUT INTERVAL TPN INFUSING VIA PICC LINE ON TYREE, 2 STACY DRAIN HOOKED UP TO LOW INTERMITTENT SUCTION HAD 700MLS FLUID OUT SINCE TRANSFER OF CARE, ABD INCISION DRESSING INTACT, OSTOMY WITH SOME SMALL AMOUNT OF SEMI SOLID MUCOUSY DRAINAGE AND SOME GAS. VERIFIED WITH DR STAPLES TO KEEP PT NPO EXCEPT FOR WATER AND ICE UNTIL SPEECH THERAPIST RE-EVAL PT IN AM. MOM AT THE BEDSIDE AND SOME OTHER FAMILY VISITORS AT A TIME. NO OTHER ISSUES REPORTED FOR THE SHIFT, PT HAS BEEN REPOSITIONED FOR COMFORT. WILL REPORT TO ONCOMING SHIFT
--- NOTE | 2023-09-29 18:31 | NUR ---
Met with patient and pt's mom this afternoon. No new changes to care plan, but pt did report feeling happy he decided to do the surgery. Pt's mom has Palliative Care number and will reach out if needed.
[2023-09-29 19:24] VITALS: BP 147/85
--- NOTE | 2023-09-29 20:53 | NUR ---
ASSUMPTION OF CARE: THIS RN ASSUMED CARE OF PT AT APPROX 1900, BEDSIDE REPORT COMPLETED. ALERT, ORIENTED X4 THIS EVENING. MOTHER AT BEDSIDE. PT REPORTS ADEQUATE PAIN MANAGEMENT AT THIS TIME W/ DILAUDID LEAD RADIOLOGIC TECHNOLOGIST IN PLACE. BOWEL SOUNDS PRESENT T/O. OSTOMY TO RLQ W/ SMALL AMT BROWN OUTPUT, FLATUS PRODUCTION. STACY DRAIN X2 IN PLACE, CONNECTED TO LIS W/ SEROSANGUINEOUS OUTPUT. HR 100'S, ST ON TELE. BP STABLE, MAP >65. SPO2 >90% ON RA, RESPIRATIONS EVEN & UNLABORED. PT VOIDING INDEPENDENTLY USING URINAL. TPN INFUSING AT 65 ML/HR THROUGH PICC. NO OTHER NEEDS AT THIS TIME. ABLE TO TOLERATE WATER & ICE CHIPS WELL. CALL LIGHT IN REACH.
[2023-09-29 23:12] VITALS: BP 155/89
[2023-09-30 03:09] VITALS: BP 155/85
--- NOTE | 2023-09-30 03:36 | NUR ---
MD CONTACT NOTIFIED DR. CAAL OF PT'S REQUEST FOR BREATHING TREATMENT. RECEIVED ORDER FOR ALBUTEROL NEB PRN PT HAD RECEIVED THE SAME YESTERDAY. SEVERE INTERACTION WAS NOTED WHEN ORDER WAS ENTERED AND DISCUSSION WAS HELD BETWEEN [facility] AND DR. CAAL. DECISION WAS MADE TO PROCEED WITH ORDER BASED ON PT'S LACK OF ASTHMA/BRONCHOSPASM HX. COMMUNICATED TO PRIMARY EMILIANA OG AND PLAN WILL BE TO MONITOR FOR EFFECTIVENESS.
[2023-09-30 04:29] LABS: Hematocrit 30.6 % (37.0-53.0); Hemoglobin 9.5 g/dL (13.5-17.5); Mean Corpuscular HGB 29.7 pg (26.0-34.0); Mean Corpuscular Volume 96 fL (80-100); Mean Platelet Volume 9.7 fL (9.1-12.4); NRBC ABSOLUTE 0.04 K/mm3 (0.00-0.02); NRBC Auto 0.2 /100 WBC (0.0-0.2); Platelet Count 80 K/mm3 (150-400); RDW Coefficient Variation 19.9 % (11.7-14.2); RDW Standard Deviation 55.3 fL (35.1-46.3); White Blood Cell Count 16.82 K/mm3 (4.00-11.30)
[2023-09-30 04:48] LABS: International Normalized Ratio 1.14; Prothrombin Time Results 11.9 Sec (9.7-11.5)
[2023-09-30 04:54] LABS: Albumin, Blood 1.5 g/dL (3.4-5.0); Albumin/Globulin Ratio 0.4 (0.8-1.8); Bilirubin, Direct 1.3 mg/dL (0.0-0.3); Bilirubin, Indirect 0.5 mg/dL (0.1-0.7); Bilirubin, Total 1.8 mg/dL (0.1-1.0); Bun/Creatinine Ratio 42.6 (12.0-20.0); Calcium, Blood 8.6 mg/dL (8.5-10.1); Creatinine, Blood 0.7 mg/dL (0.60-1.20); Globulin, Blood 4.2 g/dL (2.2-4.0); Phosphorus, Blood 3.1 mg/dL (2.5-4.9); Potassium, Blood 4.4 mmol/L (3.5-5.5); Total Protein, Blood 5.7 g/dL (6.4-8.2)
--- NOTE | 2023-09-30 05:08 | NUR ---
END OF SHIFT NOTE: NO ACUTE EVENTS OVERNIGHT. PT REMAINS A/OX4, COOPERATIVE W/ ALL CARE. HR 90-100'S, SINUS ON TELE. BP STABLE. SPO2 >90% ON RA WHILE AWAKE, 3L NC WHILE ASLEEP. PT REQUESTED BREATHING TX THIS AM, SEE PREVIOUS NOTE. RESPIRATIONS EVEN & UNLABORED AT THIS TIME FOLLOWING TX, ON RA. ANTON DRESSING REMAINS INTACT W/ SMALL AMT OUTPUT OUTLINES. STACY X2 DRAINING TO LIS, 1700ML OUTPUT AT TIME OF THIS NOTE; SEROSANGUINEOUS. OSTOMY PRODUCING SMALL AMOUNT OF BROWN STOOL W/ FLATUS. PT VOIDING IN URINAL INDEPENDENTLY, JEFF URINE. TPN CONTINUES TO INFUSE AT 65ML/HR PER ORDERS. DILAUDID SKIVER HAND IN PLACE, PT REPORTS ADEQUATE PAIN MANAGEMENT T/O NOC W/ SKIVER HAND. REPOSITIONED NEEDED. MOTHER REMAINS AT BEDSIDE OVERNIGHT. NO OTHER NEEDS AT THIS TIME, PT RESTING IN BED. CALL LIGHT IN REACH.
[2023-09-30 05:20] LABS: BAND PERCENT MAN 3 % (0-8); BASOPHILS PERCENT MAN 0 % (0-2); EOSINOPHILS PERCENT MAN 0 % (0-6); LYMPHOCYTES ABSOLUTE MAN 0.84 K/mm3 (0.84-5.20); LYMPHOCYTES PERCENT MAN 5 % (21-46); MONOCYTES ABSOLUTE MAN 0.84 K/mm3 (0.16-1.47); MONOCYTES PERCENT MAN 5 % (4-13); MYELOCYTE PERCENT MAN 6 % (0-0); NEUTROPHILS ABSOLUTE MAN 14.12 K/mm3 (1.96-9.15); SEG NEUTROPHILS PERCENT MAN 81 % (41-73); TOTAL CELLS COUNTED 100
[2023-09-30 08:54] VITALS: BP 142/82
--- NOTE | 2023-09-30 10:00 | NUR ---
AM ASSESSMENT: Pt resting in bed with mother at bedside. Pt drowsy but wakes to verbal stimulus and remains awake. LS diminished throughout. HR reg, tele shows NSR/ST. BP Stable. BT hyperactive and iliostomy draining mariee/green mucus appearing drainage. Both STACY drains in abd connected to LIS with large amounts serousangunus drainage noted. Pitting edema to BLE noted. Pitting edema to R arm noted. Pt and his mother state that the edma has improved a lot. Abd kyle dressing removed and replaced with 3m dressing. CHG dressings around STACY drains changed. Pt cleaned with CHG wipes. Pt has HAND COLLATOR pump with dilaudid with good pain control. Talked to client about changing to oral pain medications. Patient agrees to this and will treat with oxycodone. Call light in reach. Will continue to monitor.
[2023-09-30 11:31] VITALS: BP 146/80
[2023-09-30 15:52] VITALS: BP 118/71
--- NOTE | 2023-09-30 16:25 | NUR ---
Spiritual Care Visit. Pt. is sitting up in a chair and welcomes my visit. Pts. mother is presnt. Facilitate a discussion about the Pts. progress. Pt. displays evidence of a positive and hopeful attitude, and verbalizes that he believes that many people have been praying for him. With theraputic listening and an encouraging presence, rapport is re-established. Prayed with Pt. Pt. verbalized gratitude for the spiritual care visit and also verbalized an expectation [facility] where he might recover for about a week.
--- NOTE | 2023-09-30 18:47 | NUR ---
SHIFT SUMMARY: Pt back to bed after sitting up in chair for a few hours. Tolerated well. Still very weak with transfer, requiring 2 person min assist d/t lines/cords/tubes. Pt has done very well this shift. Pt was increased to a low fiber diet and has been able to have oral intake without nausea. Pt iliostomy had increased drainage and stool changed from a mariee/mucusy texture to a green/mucusy texture. Over 200ml output from ostomy this shift. STACY drains to LIS with large amount of liquid serosang drainage. IVF running per orders. Pt was started on oral pain medication this shift with COUNTER INTELLIGENCE TECHNICIAN for back up pain coverage. Pain has been well controlled. Will discontinue COUNTER INTELLIGENCE TECHNICIAN this evening. Pt VSS throughout shift. No other changes. Will continue to monitor and report to night RN.
[2023-09-30 20:03] VITALS: BP 131/74
--- NOTE | 2023-09-30 21:39 | NUR ---
ASSUMPTION OF CARE: THIS RN ASSUMED CARE OF PT AT 1900, REPORT FROM CRUZITO HOPSON. PT ALERT, ORIENTED X4. MOTHER & FRIENDS AT BEDSIDE. HR 70'S, SINUS ON TELE. BP STABLE, MAP >65. SOI2 >90% ON RA. DENIES CHEST PAIN/PRESSURE/SOB. STACY DRAINS X2 REMAIN CONNECTED TO LIS, SEROSANGUINEOUS OUTPUT. OSTOMY DRAINING BROWN/GREEN OUTPUT. MIDLINE ABD DRESSING INTACT W/O DRAINAGE AT THIS TIME. TUB ATTENDANT PUMP DC'D AT SHIFT CHANGE PER ORDERS, PT REPORTS ADEQUATE PAIN CONTROL W/ PO OXYCODONE. TPN CONTINUES INFUSING AT GOAL RATE 65 ML/HR. TOLERATING PO INTAKE WELL THUS FAR. NO OTHER NEEDS AT THIS TIME, CALL LIGHT IN REACH.
[2023-10-01] VITALS (7 sets, daily range): BP systolic 100–138; BP diastolic 59–75
[2023-10-01 04:30] LABS: Hematocrit 27.5 % (37.0-53.0); Hemoglobin 8.6 g/dL (13.5-17.5); Mean Corpuscular HGB 30.1 pg (26.0-34.0); Mean Corpuscular HGB Conc 31.3 g/dL (31.5-36.5); Mean Corpuscular Volume 96 fL (80-100); Mean Platelet Volume 9.7 fL (9.1-12.4); NRBC ABSOLUTE 0.03 K/mm3 (0.00-0.02); NRBC Auto 0.2 /100 WBC (0.0-0.2); Platelet Count 79 K/mm3 (150-400); RDW Coefficient Variation 19.9 % (11.7-14.2); RDW Standard Deviation 58.5 fL (35.1-46.3); Red Blood Cell Count 2.86 M/mm3 (4.30-5.90); White Blood Cell Count 12.42 K/mm3 (4.00-11.30)
--- NOTE | 2023-10-01 04:43 | NUR ---
END OF SHIFT NOTE: NO ACUTE EVENTS OVERNIGHT. PT REMAINS ALERT, ORIENTED X4. COOPERATIVE W/ CARE & ABLE TO CALL APPROPRIATELY FOR ASSISTANCE. HR 70'S, SINUS ON TELE. BP STABLE, MAP >65. SPO2 >90% ON RA FOR ENTIRE SHIFT. DENIES SOB. AFEBRILE. STACY DRAIN X2 REMAIN CONNECTED TO LIS W/ 925ML OUTPUT AT TIME OF THIS NOTE. MIDLINE ABD DRESSING REMAINS C/D/I. OSTOMY PRODUCING BROWN STOOL OVERNIGHT W/ FLATUS. PT REPORTS ADEQUATE PAIN MANAGEMENT W/ PO OXYCODONE, IV DILAUDID X1 FOR BREAKTHROUGH PAIN. TPN CONTINUES TO INFUSE AT 65ML/HR. REPOSITIONED T/O NOC, PT ABLE TO ADJUST HOB & HIPS INDEPENDENTLY. CONTINUES TO TOLERATE PO INTAKE WELL. VOIDING INDEPENDENTLY IN URINAL. NO OTHER NEEDS AT THIS TIME, CALL LIGHT IN REACH. WILL REPORT TO ONCOMING RN.
[2023-10-01 04:46] LABS: Alanine Aminotransfer (ALT/SGP 36 U/L (12-78); Albumin, Blood 1.9 g/dL (3.4-5.0); Albumin/Globulin Ratio 0.5 (0.8-1.8); Alk Phos 173 U/L (50-136); Anion Gap 2 mmol/L (6-16); Aspartate Aminotrans (AST/SGOT 73 U/L (12-37); Bilirubin, Total 1.4 mg/dL (0.1-1.0); Blood Urea Nitrogen 31 mg/dL (8-24); Bun/Creatinine Ratio 38.6 (12.0-20.0); CO2, Blood 38 mmol/L (21-32); Calcium, Blood 8.5 mg/dL (8.5-10.1); Chloride, Blood 98 mmol/L (98-108); Globulin, Blood 3.6 g/dL (2.2-4.0); Glomerular Filtration Rate 111 (60-); Glucose, Blood 101 mg/dL (70-99); Potassium, Blood 4.2 mmol/L (3.5-5.5); Sodium, Blood 138 mmol/L (136-145); Total Protein, Blood 5.5 g/dL (6.4-8.2); Triglycerides 94 mg/dL (30-160)
[2023-10-01 05:05] LABS: BAND PERCENT MAN 8 % (0-8); BASOPHILS PERCENT MAN 0 % (0-2); EOSINOPHILS PERCENT MAN 0 % (0-6); LYMPHOCYTES % ATYPICAL MANUAL 1 % (0-0); LYMPHOCYTES ABSOLUTE MAN 0.99 K/mm3 (0.84-5.20); LYMPHOCYTES PERCENT MAN 7 % (21-46); MONOCYTES ABSOLUTE MAN 0.86 K/mm3 (0.16-1.47); MONOCYTES PERCENT MAN 7 % (4-13); NEUTROPHILS ABSOLUTE MAN 10.55 K/mm3 (1.96-9.15); SEG NEUTROPHILS PERCENT MAN 77 % (41-73); TOTAL CELLS COUNTED 100
--- NOTE | 2023-10-01 17:11 | NUR ---
SHIFT SUMMARY: PT ALERT AND ORIENTED X4, ABLE TO FOLLOW COMMANDS AND MAKE NEEDS KNOWN. STRENGTH WEAK, EQUAL BILATERALLY. BP AND HR STABLE. AFEBRILE. SPO2 >94% ON ROOM AIR. RESPIRTAIONS EVEN AND UNLABORED AT REST. PULSES STRONG AND EQUAL THROUGHOUT. ABD SOFT, NON TENDER, BOWEL SOUNDS +. ILEOSTOMY IN PLACE, DRAINING LIQUID BROWN STOOL. X2 STACY DRAIN REMAIN IN PLACE, HOOKED TO INTERMITTENT SUCTION PER ORDERS. APPROX 600 ML OF OUTPUT THIS SHIFT. TPN DECREASED TO 40ML/HR THIS SHIFT, TOELRATING WELL. PHYSCIAL THERAPY IN THIS AFTERNOON, ABLE TO TRANSFER PT TO CHAIR VIA ONE PERSON ASSIST. PT MEDICATED X2 PER EMAR. MOM AT BEDSIDE THROUGHOUT THE DAY AND UPDATED ON PT CARE FREQUENTLY. PT CURRENTLY SITTING UP IN CHAIR, EATING DINNER. CALL LIGHT IN REACH, WILL REPORT TO ONCOMING EMILIANA
[2023-10-02 04:46] VITALS: BP 129/64
--- NOTE | 2023-10-02 05:35 | NUR ---
SHIFT SUMMARY PT A&O X4. ABLE TO MAKE NEEDS KNOWN. PT'S MOTHER AT BEDSIDE T/O THIS SHIFT. PT ON RA FOR THE MAJORITY OF THIS SHIFT. NEEDING 3L VIA NC TOWARDS END OF SHIFT WHILE COUGHING AND FOR REPORTED ANXIETY. BP STABLE. SR ON MONITOR WITH HR 70'S. AFEBRILE. X2 STACY DRAINS CONNNECTED TO LIS, APPROXIMATELY 600MLS OF SEROSANGUINOUS OUTPUT. ILEOSTOMY CHANGED X2 DURING THIS SHIFT D/T LEAKING. PT REPOSITIONING SELF IN BED; NEEDING REMINDERS TO DO SO. USING URINAL IN BED INDEPENDENTLY, PAD IN PLACE FOR INCONTINENT EPISODES WHILE SLEEPING. PT WITH INCREASED COARSE LS LATER IN SHIFT. PT USING SUCTION INDEPENDENTLY. GIVEN FLUTTER VALVE FOR REPORTED INCREASED SECRETIONS. BED IN LOWEST POSITION AND CALL LIGHT WITHIN REACH. THIS RN WILL REPORT TO ONCOMING DAYSHIFT RN.
[2023-10-02 07:33] VITALS: BP 149/82
[2023-10-02 13:03] VITALS: BP 133/80
--- NOTE | 2023-10-02 16:55 | NUR ---
SHIFT SUMMARY: PT REMAINS ALERT AND ORIENTED X4, ABLE TO FOLLOW COMMANDS AND MAKE NEEDS KNOWN. BP AND HR STABLE. AFEBRILE. SPO2 >94% ON ROOM AIR. RESPIRATIONS EVEN AND UNLABORED. X2 STACY DRAIN REMAIN IN PLACE, CONNECTED TO LIS PER ORDERS. APPROX [address] ILE[address]Y [address] PLACE, DRAINING SOFT BROWN STOOL. FAMILY AT BEDSIDE THROUGHOUT THE SHIFT, UPDATED ON PT CARE. PT NOW SURGICAL NO TELE STATUS. BED IN LOW, CALL LIGHT IN REACH, WILL REPORT TO ONCOMING RN.
[2023-10-02 19:53] VITALS: BP 131/80
--- NOTE | 2023-10-03 00:31 | NUR ---
PT REPORTS PAIN HAS BEEN REASONABLY WELL MANAGED BUT DESCRIBED LINGERING GAS PAIN THAT WAS RELIEVED SOMEWHAT BY BURPING ALTHOUGH HE IS NOT ABLE TO DO SO CONSISTENTLY. CALLED TO NOTIFY DR. CAAL WHO ORDERED SIMETHICONE Q6 PRN FOR MANAGEMENT. VERIFIED DOSAGE WITH PHARMACY. ALSO REQUESTED REPEAT LAB DRAW IN MORNING TO CHECK HGB PT EXPERIENCED DROP ON PREVIOUS LAB DRAW AND IS HAVING LOTS OF OUTPUT VIA STACY DRAINS. ORDERED CBC AND BMP TO BE COMPLETED THIS AM. ORDERS ENTERED. CONTINUING TO MONITOR.
[2023-10-03 04:26] LABS: BASOPHILS ABSOLUTE AUTO 0.03 K/mm3 (0.00-0.23); BASOPHILS PERCENT AUTO 0 % (0-2); EOSINOPHILS ABSOLUTE AUTO 0.03 K/mm3 (0.00-0.68); EOSINOPHILS PERCENT AUTO 0 % (0-6); Hematocrit 27.5 % (37.0-53.0); Hemoglobin 8.8 g/dL (13.5-17.5); IMMATURE GRAN ABSOLUTE AUTO 0.08 K/mm3 (0.00-0.10); IMMATURE GRAN PERCENT AUTO 1 % (0-1); LYMPHOCYTES ABSOLUTE AUTO 0.69 K/mm3 (0.84-5.20); LYMPHOCYTES PERCENT AUTO 8 % (21-46); MONOCYTES ABSOLUTE AUTO 0.91 K/mm3 (0.16-1.47); MONOCYTES PERCENT AUTO 11 % (4-13); Mean Corpuscular HGB 30.3 pg (26.0-34.0); Mean Corpuscular Volume 95 fL (80-100); Mean Platelet Volume 10.7 fL (9.1-12.4); NEUTROPHILS ABSOLUTE AUTO 6.52 K/mm3 (1.96-9.15); NEUTROPHILS PERCENT AUTO 79 % (41-73); Platelet Count 81 K/mm3 (150-400); RDW Standard Deviation 62.6 fL (35.1-46.3); White Blood Cell Count 8.26 K/mm3 (4.00-11.30)
[2023-10-03 04:39] LABS: Bun/Creatinine Ratio 35.8 (12.0-20.0); Calcium, Blood 8.5 mg/dL (8.5-10.1); Creatinine, Blood 0.7 mg/dL (0.60-1.20); Potassium, Blood 3.9 mmol/L (3.5-5.5)
[2023-10-03 04:53] VITALS: BP 126/82
--- NOTE | 2023-10-03 05:00 | NUR ---
SHIFT SUMMARY. PT HAS BEEN DOING WELL THROUGHOUT SHIFT. AOX4, PLEASANT, COOPERATIVE WITH CARE. CALLS APPROPRIATELY FOR ASSISTANCE AND ABLE TO MAKE NEEDS KNOWN. PAIN HAS BEEN MOSTLY WELL MANAGED THROUGHOUT SHIFT VIA EMAR. PT WAS REPORTING SOME GAS RELATED PAIN THIS MORNING. SEE RELATED NOTE FOR DETAILS, PT REPORTED SIMETHICONE DID HELP TO RELIEVE PAIN/DISCOMFORT. ILEOSTOMY HAS BEEN FUNCTIONING WELL WITH GOOD OUTPUT THROUGHOUT SHIFT, CHARTED OUTPUT APPROPRIATELY. DRESSING REMAINS C/D/I. 2 STACY DRAINS REMAIN INTACT, DRAINING TO SUCTION. OUTPUT TO BE CHARTED WHEN SUCTION CANISTER EMPTY. MIDLINE DRESSING REMAINS C/D/I. PO INTAKE HAS BEEN MINIMAL THROUGHOUT SHIFT. TPN INFUSING PER EMAR THROUGHOUT SHIFT. PICC AND POWERGLIDE REMAIN PATENT AND FLUSH/INFUSE WELL. BED LOCKED IN LOWEST POSITION. CALL LIGHT LEFT WTIHIN REACH. CONTINUING TO MONITOR.
[2023-10-03 07:01] VITALS: BP 137/69
[2023-10-03 15:17] VITALS: BP 126/71
--- NOTE | 2023-10-03 17:11 | NUR ---
SHIFT SUMMARY: PT REMAINS ALERT AND ORIENTED X4, ABLE TO FOLLOW COMMANDS AND MAKE NEEDS KNOWN. BP AND HR STABLE. AFEBRILE. SPO2 >96% ON ROOM AIR. STACY DRAIN X2 CONNECTED TO LIS. APPROX 1200ML OF FLUID OUT THIS SHIFT. ILEOSTOMY REMAINS IN PLACE, DRAINING BROWN STOOL. PT WITH COMPLAINTS OF GAS PAIN THIS SHIFT, MEDICATED PER EMAR WITH GOOD RESULTS. MD AT BEDSIDE THIS EVENING WITH FAMILY AT BEDSIDE, UPDATED PT ON PLAN OF CARE. PT SLEPT ON AND OFF THIS SHIFT, MEDICATED PER EMAR FOR PAIN. REMAINS SURGICAL NO TELE STATUS. BED IN LOW, FAMILY AT BEDSIDE, CALL LIGHT IN REACH, WILL REPORT TO ONCOMING RN.
--- NOTE | 2023-10-03 19:20 | NUR ---
UPDATE PT MADE AWARE TO THIS RN AND DAYSHIFT RN THAT HE ACCIDENTLY PULLED ON HIS STACY DRAIN LOCATED ON HIS RLQ. DRAIN STILL APPEARED TO BE IN PT, BUT SITE NOTED TO BE BLOODY. DRAIN CONTINUES TO STEADILY PRODUCE PINK SEROSANGUINEOUS DRAINAGE. APPLICATIONS ENGINEER KELVIN MADE AWARE AND CAME TO BEDSIDE TO EVALUATE. DR. STAPLES AND DR. HEARD NOTIFIED OF THESE EVENTS WITH ORDERS FOR ABD CT W/CONTRAST. NO NEW ORDERS AT THIS TIME, VSS.
[2023-10-03 19:22] VITALS: BP 136/77
[2023-10-04 00:13] VITALS: BP 139/82
[2023-10-04 03:34] VITALS: BP 138/83
--- NOTE | 2023-10-04 04:27 | NUR ---
SHIFT SUMMARY A/Ox4 AND COOPERATIVE WITH CARE. ANSWERS QUESTIONS APPROPRIATELY AND ABLE TO MAKE HIS NEEDS KNOWN. NO ACUTE CHANGES SINCE UPDATE NOTE. CARDIAC, REMAINS SURGICAL STATUS NO TELE WITH NO REPORTS OF CP OR PRESSURE DURING THE NIGHT. SBP HAS BEEN STABLE RANGING 130'S. RESPIRATORY, MAINTAINS SPO2 >90% ON RA. DENIES SOB OR DYSPNEA AT REST. LS CONTINUE TO BE COARSE, PT ENCOURAGEED TO USE INCENTIVE SPIROMETER. SOME MILD DYSPNEA WITH EXERTION NOTE. GI/, ABD REMAINS TENDER TO THE TOUCH, BUT PAIN WELL CONTROLLED WITH PRN PAIN MEDICATIONS. STACY DRAINS REMAIN IN PLACE WITH PINK SEROSANGUINEOUS OUTPUT NOTED. RLQ DRAIN CONTINUES TO HAVE SOME OOZING. ILEOSTOMY REMAINS INTACT, NEW BACK APPLIED TO KEEP C/D/I. ABLE TO INDEPENDENTLY VOID IN TO URINAL AT BEDSIDE. TPN INFUSING ORDERED PER EMAR. NO NEW ORDERS AT THIS TIME, WILL REPORT TO ONCOMING RN. CHRISTIANO WATERMAN OF THIS NOTE.
[2023-10-04 07:45] VITALS: BP 136/80
[2023-10-04 12:12] VITALS: BP 128/75
[2023-10-04 16:23] VITALS: BP 101/64
--- NOTE | 2023-10-04 16:45 | NUR ---
SHIFT SUMMARY PT REMAINS ALERT AND ORIENTED. BP STABLE. PT ON RA ALL SHIFT WITH SATS >90%. TPN DISCONTINUED THIS AFTERNOON PT IS TOLERATING DIET. STACY DRAIN X2 SET TO INTERMITTENT SUCTION. DRESSING AROUND DRAIN CHANGED OUT TODAY. MIDLINE INCISION NOW OPEN TO AIR. HARRISON RN IN TO PROVIDE EDUCATION TO PATIENT ABOUT ILEOSTOMY THIS SHIFT. PT ABLE TO STAND AND TRANSFER TO CHAIR WITH 2 PERSON ASSIST. PT CONTINENT OF BLADDER. PASTY BROWN OUTPUT IN ILEOSTOMY. PT TO BE TRANSFERRED TO SURGICAL FLOOR THIS EVENING. WILL CONTINUE TO MONITOR UNTIL REPORT GIVEN TO SURGICAL FLOOR RN
[2023-10-04 19:03] VITALS: BP 112/59
--- NOTE | 2023-10-04 23:11 | NUR ---
ASSUMED CARE OF PT AT THIS TIME. PT ALERT AND PLEASANT. REPORTS 6/10 ABD PAIN IMPROVED FROM LAST DOSE OF PAIN MEDICATION. STACY DRAINS X2 TO LIS WITH SS DRAINAGE. OSTOMY WITH SOFT BROWN STOOL PRESENT IN BAG. PT READING OSTOMY EDUCATION HANDOUTS CURRENTLY AND DENIES ANY NEEDS AT THIS TIME. CALL LIGHT WITHIN REACH.
[2023-10-05 02:40] VITALS: BP 154/82
--- NOTE | 2023-10-05 04:14 | NUR ---
SHIFT SUMMARY NO ACUTE CHANGES SINCE ASSUMING CARE. PT INDEPENDENTLY BURPED OSTOMY BAG AND HAS BEEN READING EDUCATIONAL HANDOUTS ON OSTOMY MANAGEMENT. OSTOMY PUTTING OUT SOFT BROWN STOOL. STACY DRAINS X2 TO LIS WITH SS OUTPUT. INCISION CAREER SERVICES OFFICER AND CDI. X1 IV DILAUDID FOR BREAKTHROUGH PAIN OTHERWISE ORAL ROXICODONE FOR PAIN MANAGEMENT. USING URINAL TO VOID. VSS. USES CALL LIGHT APPROPRIATELY.
[2023-10-05 05:24] LABS: BASOPHILS ABSOLUTE AUTO 0.04 K/mm3 (0.00-0.23); BASOPHILS PERCENT AUTO 1 % (0-2); EOSINOPHILS ABSOLUTE AUTO 0.05 K/mm3 (0.00-0.68); EOSINOPHILS PERCENT AUTO 1 % (0-6); Hematocrit 28.9 % (37.0-53.0); IMMATURE GRAN ABSOLUTE AUTO 0.05 K/mm3 (0.00-0.10); IMMATURE GRAN PERCENT AUTO 1 % (0-1); LYMPHOCYTES ABSOLUTE AUTO 0.78 K/mm3 (0.84-5.20); LYMPHOCYTES PERCENT AUTO 10 % (21-46); MONOCYTES ABSOLUTE AUTO 1.12 K/mm3 (0.16-1.47); MONOCYTES PERCENT AUTO 14 % (4-13); Mean Corpuscular HGB 30.1 pg (26.0-34.0); Mean Corpuscular HGB Conc 31.1 g/dL (31.5-36.5); Mean Corpuscular Volume 97 fL (80-100); Mean Platelet Volume 10.4 fL (9.1-12.4); NEUTROPHILS ABSOLUTE AUTO 6.18 K/mm3 (1.96-9.15); NEUTROPHILS PERCENT AUTO 75 % (41-73); Platelet Count 126 K/mm3 (150-400); RDW Coefficient Variation 20.1 % (11.7-14.2); RDW Standard Deviation 67.2 fL (35.1-46.3); Red Blood Cell Count 2.99 M/mm3 (4.30-5.90); White Blood Cell Count 8.22 K/mm3 (4.00-11.30)
[2023-10-05 06:02] LABS: Albumin, Blood 3.2 g/dL (3.4-5.0); Albumin/Globulin Ratio 0.8 (0.8-1.8); Bilirubin, Total 2.3 mg/dL (0.1-1.0); Bun/Creatinine Ratio 24.9 (12.0-20.0); Calcium, Blood 8.9 mg/dL (8.5-10.1); Creatinine, Blood 0.76 mg/dL (0.60-1.20); Globulin, Blood 3.8 g/dL (2.2-4.0); Potassium, Blood 4.1 mmol/L (3.5-5.5)
[2023-10-05 07:03] VITALS: BP 147/81
--- NOTE | 2023-10-05 13:04 | NUR ---
DR STAPLES AND DR JOEL IN TO SEE PT.
[2023-10-05 15:55] VITALS: BP 131/80
--- NOTE | 2023-10-05 17:05 | NUR ---
SUMMARY NO ACUTE CHANGES T/O SHIFT. PT SAT UP IN CHAIR FOR PART OF DAY. WORKED WITH OCCUPATIONAL THERAPY. STACY DRAINS CHANGED TO BULB SUCTION PER ORDERS. OSTOMY PUTTING OUT SOFT BROWN STOOL. MEDICATED PER ORDERS FOR PAIN. CALL LIGHT IN REACH.
[2023-10-05 18:55] VITALS: BP 131/83
[2023-10-06 02:47] VITALS: BP 150/93
[2023-10-06 06:35] LABS: BASOPHILS ABSOLUTE AUTO 0.05 K/mm3 (0.00-0.23); BASOPHILS PERCENT AUTO 1 % (0-2); EOSINOPHILS ABSOLUTE AUTO 0.04 K/mm3 (0.00-0.68); EOSINOPHILS PERCENT AUTO 1 % (0-6); Hemoglobin 8.9 g/dL (13.5-17.5); IMMATURE GRAN ABSOLUTE AUTO 0.04 K/mm3 (0.00-0.10); IMMATURE GRAN PERCENT AUTO 1 % (0-1); LYMPHOCYTES ABSOLUTE AUTO 0.67 K/mm3 (0.84-5.20); LYMPHOCYTES PERCENT AUTO 8 % (21-46); MONOCYTES ABSOLUTE AUTO 1.31 K/mm3 (0.16-1.47); MONOCYTES PERCENT AUTO 15 % (4-13); Mean Corpuscular HGB 30.7 pg (26.0-34.0); Mean Corpuscular HGB Conc 31.8 g/dL (31.5-36.5); Mean Corpuscular Volume 97 fL (80-100); Mean Platelet Volume 10.4 fL (9.1-12.4); NEUTROPHILS PERCENT AUTO 75 % (41-73); Platelet Count 143 K/mm3 (150-400); RDW Coefficient Variation 20.1 % (11.7-14.2); RDW Standard Deviation 67.5 fL (35.1-46.3); White Blood Cell Count 8.51 K/mm3 (4.00-11.30)
[2023-10-06 07:07] LABS: Albumin, Blood 3.6 g/dL (3.4-5.0); Bilirubin, Total 2.6 mg/dL (0.1-1.0); Bun/Creatinine Ratio 22.6 (12.0-20.0); Calcium, Blood 8.9 mg/dL (8.5-10.1); Creatinine, Blood 0.75 mg/dL (0.60-1.20); Globulin, Blood 3.5 g/dL (2.2-4.0); Potassium, Blood 4.1 mmol/L (3.5-5.5); Total Protein, Blood 7.1 g/dL (6.4-8.2)
[2023-10-06 07:59] VITALS: BP 156/90
[2023-10-06 08:00] VITALS: BP 147/87
--- NOTE | 2023-10-06 14:12 | NUR ---
PT CHANGED OUT OWN OSTOMY BAG APPLIANCE AT THIS TIME. BAG IS SECURE, STOMA WNL.
--- NOTE | 2023-10-06 14:29 | NUR ---
Spirirutal Care Visit. Pt is sitting up in a chair and had just finished with OT when he welcomed my visit. Pts. mother is at bedside. Pt. is pleasant. Facilitate an update on the Pts. progress. Pt. displays evidence of engagement and awareness. Pt. verbalized gratitudse for the spiritual care visit. Will remain available to the Pt. and family.
[2023-10-06 15:54] VITALS: BP 129/82
--- NOTE | 2023-10-06 18:15 | NUR ---
SUMMARY: PT IS S/P COLECTOMY. A/O, VSS. SURGICAL SITES WNL. DRESSINGS SOURROUNDING STCAY DRAINS CHANGED TONIGHT. TOTAL OUTPUT WAS 120, SS DRAINAGE. MIDLINE INCISION WNL, ICE CREAM MAKER. PT ABLE TO WORK WITH OT AND WALKED IN THE YAÑEZ TODAY, GETTING STRONGER. SHABANA DIET, OSTOMY OUTPUT IS BROWN AND SOFT. PAIN APPEARS TO BE WELL MANAGED WITH 5MG ROXICODONE. PLAN IS FOR DC STACY DRAINS TOMORROW AND POSSIBLE DC ON WEDNESDAY.
[2023-10-06 19:44] VITALS: BP 146/92
[2023-10-06 19:45] VITALS: BP 146/92
[2023-10-07 05:00] LABS: BASOPHILS ABSOLUTE AUTO 0.04 K/mm3 (0.00-0.23); BASOPHILS PERCENT AUTO 1 % (0-2); EOSINOPHILS ABSOLUTE AUTO 0.06 K/mm3 (0.00-0.68); EOSINOPHILS PERCENT AUTO 1 % (0-6); Hematocrit 25.9 % (37.0-53.0); Hemoglobin 8.3 g/dL (13.5-17.5); IMMATURE GRAN ABSOLUTE AUTO 0.03 K/mm3 (0.00-0.10); IMMATURE GRAN PERCENT AUTO 0 % (0-1); LYMPHOCYTES ABSOLUTE AUTO 0.63 K/mm3 (0.84-5.20); LYMPHOCYTES PERCENT AUTO 9 % (21-46); MONOCYTES ABSOLUTE AUTO 1.04 K/mm3 (0.16-1.47); MONOCYTES PERCENT AUTO 15 % (4-13); Mean Corpuscular HGB 30.3 pg (26.0-34.0); Mean Corpuscular Volume 95 fL (80-100); Mean Platelet Volume 9.7 fL (9.1-12.4); NEUTROPHILS ABSOLUTE AUTO 5.07 K/mm3 (1.96-9.15); NEUTROPHILS PERCENT AUTO 74 % (41-73); Platelet Count 129 K/mm3 (150-400); RDW Coefficient Variation 19.9 % (11.7-14.2); RDW Standard Deviation 66.6 fL (35.1-46.3); Red Blood Cell Count 2.74 M/mm3 (4.30-5.90); White Blood Cell Count 6.87 K/mm3 (4.00-11.30)
[2023-10-07 05:02] VITALS: BP 133/80
[2023-10-07 05:14] LABS: International Normalized Ratio 1.2; Prothrombin Time Results 12.5 Sec (9.7-11.5)
[2023-10-07 05:21] LABS: Albumin, Blood 3.6 g/dL (3.4-5.0); Bun/Creatinine Ratio 21.6 (12.0-20.0); Calcium, Blood 8.9 mg/dL (8.5-10.1); Creatinine, Blood 0.88 mg/dL (0.60-1.20); Globulin, Blood 3.6 g/dL (2.2-4.0); Potassium, Blood 4.1 mmol/L (3.5-5.5); Total Protein, Blood 7.2 g/dL (6.4-8.2)
--- NOTE | 2023-10-07 05:55 | NUR ---
PT SUMMARY: NO ACUTE EVENTS OVERNIGHT PT RESTED WELL IN BED, MEDICATED TWICE WITH DILAUDID 0.25MG FOR SOME DISCOMFORT, PT CHANGE OWN COLOSTOMTMOY BAG PER PT'S REPORT. SOFT BROWN IN COLOR. STACY DRAIN PUT OUT ABOUT >100MLS SEROUS SANGUINEOUS MLS OF FLUID, TOLERATING PO DIET. USES URINAL IN BED, MOVES INDEPENDENTLY IN BED, VITALS HAS BEEN STABLE. NO OTHER ISSUES REPORTED FOR THE SHIFT, CALL LIGHTS IN REACH WILL REPORT TO ONCOMING SHIFT
[2023-10-07 07:35] VITALS: BP 140/81
[2023-10-07 15:44] VITALS: BP 144/91
--- NOTE | 2023-10-07 16:38 | NUR ---
shift summary pod 13 subtotal colectomy with end ileostomy PT HAVING GOOD OUTPUT FROM STOMA TODAY. APPLIANCE CHANGED WITH PATIENT. HE WAS ASKING QUESTIONS AND ENGAGED IN LEARNING TO MANAGE HIS OSTOMY. SLIGHT REDNESS ON PERISTOMAL AREA. STOMA POWDER AND SKINPREP USED. PT AMBULATED WELL WITH PHYSICAL THERAPY TODAY. PAIN CONTROLLED PER EMAR. PT TOLERATING DIET WELL, NO NAUSEA.
[2023-10-07 19:52] VITALS: BP 140/83
[2023-10-08 05:01] VITALS: BP 132/81
[2023-10-08 06:03] LABS: BASOPHILS ABSOLUTE AUTO 0.04 K/mm3 (0.00-0.23); BASOPHILS PERCENT AUTO 1 % (0-2); EOSINOPHILS ABSOLUTE AUTO 0.06 K/mm3 (0.00-0.68); EOSINOPHILS PERCENT AUTO 1 % (0-6); Hematocrit 26.8 % (37.0-53.0); Hemoglobin 8.4 g/dL (13.5-17.5); IMMATURE GRAN ABSOLUTE AUTO 0.02 K/mm3 (0.00-0.10); IMMATURE GRAN PERCENT AUTO 0 % (0-1); LYMPHOCYTES ABSOLUTE AUTO 0.64 K/mm3 (0.84-5.20); LYMPHOCYTES PERCENT AUTO 9 % (21-46); MONOCYTES ABSOLUTE AUTO 0.93 K/mm3 (0.16-1.47); MONOCYTES PERCENT AUTO 13 % (4-13); Mean Corpuscular HGB Conc 31.3 g/dL (31.5-36.5); Mean Corpuscular Volume 96 fL (80-100); Mean Platelet Volume 9.9 fL (9.1-12.4); NEUTROPHILS ABSOLUTE AUTO 5.35 K/mm3 (1.96-9.15); NEUTROPHILS PERCENT AUTO 76 % (41-73); Platelet Count 146 K/mm3 (150-400); RDW Coefficient Variation 19.8 % (11.7-14.2); RDW Standard Deviation 66.8 fL (35.1-46.3); White Blood Cell Count 7.04 K/mm3 (4.00-11.30)
[2023-10-08 06:28] LABS: Albumin, Blood 3.8 g/dL (3.4-5.0); Bilirubin, Total 1.9 mg/dL (0.1-1.0); Calcium, Blood 9.6 mg/dL (8.5-10.1); Globulin, Blood 3.8 g/dL (2.2-4.0); Potassium, Blood 4.1 mmol/L (3.5-5.5); Total Protein, Blood 7.6 g/dL (6.4-8.2)
--- NOTE | 2023-10-08 06:29 | NUR ---
SHIFT SUMMARY POD 14 SUB TOTAL COLECTOMY W/ ILEOSTOMY PT ABLE TO REST T/O NIGHT. THIS MORNING PT HAD SOME STOOL COME OUT OF HIS BUTTOCKS. PT WAS CONCERNED BUT GOT REASSURED WHEN TOLD THAT THIS IS A NORMAL THING THAT HAPPENS AFTER THIS KIND OF SURGERY. PT HOPEFUL TO GO TO A SNF TODAY SO HE CAN GET REHAB. VOIDING, TOLERATING PO INTAKE. HAVING GOOD OUTPUT IN THE OSTOMY, AND FLATUS. NO OTHER CONCERNS AT THIS TIME. CALL LIGHT WITHIN REACH
[2023-10-08 07:40] VITALS: BP 144/89
[2023-10-08 15:12] VITALS: BP 100/52
--- NOTE | 2023-10-08 18:40 | NUR ---
DISCHARGE REPORT GIVEN TO [facility]. PICC LINE AND POWER GLIDE REMOVED INTACT. NO COMPLICATIONS. ALL BELONGINGS WITH GATHERED AND TAKEN BY PATIENT AND FAMILY. PATIENT LEAVES PRIVATE VEHICLE. VIA WHEELCHAIR.
== END 2023-10-08 17:54 | DRG 853 ==
LOC: ER 19:36 → ERHOLD 09-22 02:08 → SURS 09-22 02:08 → PCU 09-22 02:08 → ICUE 09-22 02:08 → SURS 09-22 03:31 → PCU 09-22 14:58 → ICUE 09-24 16:52 → PCU 09-28 17:49 → SURS 10-04 17:18
PROVIDERS: Emergency Medicine; Family Medicine; Hospitalist; Internal Medicine; Internal Medicine Critical Care Medicine; Physician Assistant; Student in an Organized Health Care Education/Training Program; Surgery; ADMIT Student in an Organized Health Care Education/Training Program
PROC: 3E03329 Introduction of Other Anti-infective into Peripheral Vein, Percutaneous Approach (ICD-10-PCS; 2023-09-21)
PROC: 3E0436Z Introduction of Nutritional Substance into Central Vein, Percutaneous Approach (ICD-10-PCS; 2023-09-23)
PROC: 02HV33Z Insertion of Infusion Device into Superior Vena Cava, Percutaneous Approach (ICD-10-PCS; 2023-09-23)
PROC: 0D1B0Z4 Bypass Ileum to Cutaneous, Open Approach (ICD-10-PCS; 2023-09-24)
PROC: 0W3G0ZZ Control Bleeding in Peritoneal Cavity, Open Approach (ICD-10-PCS; 2023-09-24)
PROC: 0W9G4ZZ Drainage of Peritoneal Cavity, Percutaneous Endoscopic Approach (ICD-10-PCS; 2023-09-24)
PROC: 02HV33Z Insertion of Infusion Device into Superior Vena Cava, Percutaneous Approach (ICD-10-PCS; 2023-09-24)
PROC: 4A133R1 Monitoring of Arterial Saturation, Peripheral, Percutaneous Approach (ICD-10-PCS; 2023-09-24)
PROC: 03HY32Z Insertion of Monitoring Device into Upper Artery, Percutaneous Approach (ICD-10-PCS; 2023-09-24)
PROC: 4A133B1 Monitoring of Arterial Pressure, Peripheral, Percutaneous Approach (ICD-10-PCS; 2023-09-24)
PROC: 4A133J1 Monitoring of Arterial Pulse, Peripheral, Percutaneous Approach (ICD-10-PCS; 2023-09-24)
PROC: 3E033XZ Introduction of Vasopressor into Peripheral Vein, Percutaneous Approach (ICD-10-PCS; 2023-09-24)
PROC: 0DBE0ZZ Excision of Large Intestine, Open Approach (ICD-10-PCS; principal; 2023-09-24 10:15)
PROC: 5A09357 Assistance with Respiratory Ventilation, Less than 24 Consecutive Hours, Continuous Positive Airway Pressure (ICD-10-PCS; 2023-09-25)
PROC: 5A0935A Assistance with Respiratory Ventilation, Less than 24 Consecutive Hours, High Flow/Velocity Cannula (ICD-10-PCS; 2023-09-26)
DX: A41.9 Sepsis, unspecified organism (principal); J96.01 Acute respiratory failure with hypoxia; K65.2 Spontaneous bacterial peritonitis; R65.21 Severe sepsis with septic shock; K72.00 Acute and subacute hepatic failure without coma; K57.20 Diverticulitis of large intestine with perforation and abscess without bleeding; N17.9 Acute kidney failure, unspecified; D62 Acute posthemorrhagic anemia; J91.8 Pleural effusion in other conditions classified elsewhere; I85.10 Secondary esophageal varices without bleeding; K76.6 Portal hypertension; K51.919 Ulcerative colitis, unspecified with unspecified complications; D68.9 Coagulation defect, unspecified; E87.20 Acidosis, unspecified; K70.31 Alcoholic cirrhosis of liver with ascites; F10.21 Alcohol dependence, in remission; K72.10 Chronic hepatic failure without coma; R16.1 Splenomegaly, not elsewhere classified; K80.20 Calculus of gallbladder without cholecystitis without obstruction; K31.89 Other diseases of stomach and duodenum; N18.9 Chronic kidney disease, unspecified; S80.812A Abrasion, left lower leg, initial encounter; W55.03XA Scratched by cat, initial encounter; D50.9 Iron deficiency anemia, unspecified; I12.9 Hypertensive chronic kidney disease with stage 1 through stage 4 chronic kidney disease, or unspecified chronic kidney disease; E66.9 Obesity, unspecified; Z53.31 Laparoscopic surgical procedure converted to open procedure; E87.70 Fluid overload, unspecified; R73.9 Hyperglycemia, unspecified; Z79.52 Long term (current) use of systemic steroids; Z11.52 Encounter for screening for COVID-19; Z68.32 Body mass index [BMI] 32.0-32.9, adult
CPT/HCPCS: 0241U; 36415; 36430; 36569; 49083; 71045; 74018; 74160; 74177; 80048; 80053; 80069; 80202; 81001; 82042; 82140; 82248; 82310; 82330; 82728; 82803; 82947; 83540; 83550; 83605; 83615; 83690; 83735; 84100; 84145; 84157; 84478; 85014; 85018; 85025; 85027; 85049; 85384; 85610; 85730; 86850; 86900; 86901; 86920; 86922; 87040; 87070; 87075; 87086; 87205; 88307; 89051; 92526; 92610; 93005; 93010; 94002; 94003; 94640; 94660; 94664; 94760; 94762; 96361-59; 96365-59; 96375-59; 97110; 97116; 97162; 97166; 97530; 97535; 99285-25; A9270; C1751; C9113; J0696; J1120; J1170; J1650; J1815; J1885; J1940; J2060; J2185; J2250; J2371; J2405; J2543; J2704; J2916; J3010; J3370; J3411; J3465; J7030; J7050; J7060; J7120; P9016; P9047; P9053; P9059; Q9967

== ENCOUNTER 2024-02-26 16:52 | Emergency (ER) | payer OTHER ==
[~2024-02-26] VITALS: Ht 182.9 cm; Wt 97.5 kg
[~2024-02-26 16:52] MED LIST changes: +FAMO20 PO; +OXYC5; +SPIRONOLACTONE50 MG PO
[2024-02-26] MEDS ORDERED: NS 1,000 ML IV ONE (17:21)
[2024-02-26 17:33] LABS: BASOPHILS ABSOLUTE AUTO 0.05 K/mm3 (0.00-0.23); BASOPHILS PERCENT AUTO 1 % (0-2); EOSINOPHILS ABSOLUTE AUTO 0.12 K/mm3 (0.00-0.68); EOSINOPHILS PERCENT AUTO 2 % (0-6); Hematocrit 44.4 % (37.0-53.0); Hemoglobin 14.9 g/dL (13.5-17.5); IMMATURE GRAN ABSOLUTE AUTO 0.01 K/mm3 (0.00-0.10); IMMATURE GRAN PERCENT AUTO 0 % (0-1); LYMPHOCYTES ABSOLUTE AUTO 1.27 K/mm3 (0.84-5.20); LYMPHOCYTES PERCENT AUTO 18 % (21-46); MONOCYTES ABSOLUTE AUTO 1.09 K/mm3 (0.16-1.47); MONOCYTES PERCENT AUTO 15 % (4-13); Mean Corpuscular HGB 28.9 pg (26.0-34.0); Mean Corpuscular HGB Conc 33.6 g/dL (31.5-36.5); Mean Corpuscular Volume 86 fL (80-100); Mean Platelet Volume 10.4 fL (9.1-12.4); NEUTROPHILS ABSOLUTE AUTO 4.69 K/mm3 (1.96-9.15); NEUTROPHILS PERCENT AUTO 65 % (41-73); Platelet Count 135 K/mm3 (150-400); RDW Coefficient Variation 16.8 % (11.7-14.2); Red Blood Cell Count 5.15 M/mm3 (4.30-5.90); White Blood Cell Count 7.23 K/mm3 (4.00-11.30)
[2024-02-26] MEDS ORDERED: Atropine Sulfate 0.1 MG/ML 10ML SYR IV SCH (17:35)
[2024-02-26] MEDS ORDERED: NS 1,000 ML IV SCH (17:40)
[2024-02-26 17:46] LABS: Albumin, Blood 4.4 g/dL (3.4-5.0); Bilirubin, Total 1.5 mg/dL (0.1-1.0); Creatinine, Blood 1.14 mg/dL (0.60-1.20); Globulin, Blood 4.3 g/dL (2.2-4.0); Magnesium, Blood 1.8 mg/dL (1.6-2.4); Potassium, Blood 3.5 mmol/L (3.5-5.5); Total Protein, Blood 8.7 g/dL (6.4-8.2)
[2024-02-26] MEDS ORDERED: Magnesium Sulf 2 GM/Water 50ML 50 ML IV ONE (18:05)
[2024-02-26 18:08] LABS: Ethanol (Alcohol), Blood, Med <3 mg/dL; Salicylate <1.7 mg/dL (2.8-20.0)
[2024-02-26 18:10] LABS: Thyroid Stimulating Hormone 0.527 uIU/mL (0.360-4.800)
[2024-02-26 18:11] LABS: Acetaminophen, Random <2.0 ug/mL (10.0-30.0)
[2024-02-26 18:52] LABS: U Amphetamine Screen Not Detected; U Barbituate Screen Not Detected; U Benzodiazapine Screen Not Detected; U Buprenorphine Screen DETECTED; U Cannabinoids Screen DETECTED; U Cocaine Screen Not Detected; U Methadone Screen Not Detected; U Methamphetamine Screen Not Detected; U Opiates Screen Not Detected; U Oxycodone Screen Not Detected; U Phencyclidine Screen Not Detected
[2024-02-27 00:30] VITALS: BP 134/92
== END 2024-02-27 00:46 | disposition home or self-care (01) ==
LOC: ER 16:52
PROVIDERS: Physician Assistant; Student in an Organized Health Care Education/Training Program
DX: R00.1 Bradycardia, unspecified (principal); T45.2X5A Adverse effect of vitamins, initial encounter; Z79.899 Other long term (current) drug therapy
CPT/HCPCS: 80053; 83735; 84443; 84484; 85025; 93005; 93010; 96361; 96365; 96366; 99284-25; G0480; J0461; J3475; J7030

== ENCOUNTER 2024-09-29 09:03 | Day surgery (SDC) | payer OTHER ==
[~2024-09-29] VITALS: Ht 182.9 cm; Wt 105.0 kg
[~2024-09-29 09:03] MED LIST changes: +BUPR150ER PO; +ESCI10 PO; +Lactated Ringer's 1,000 ML IV ONE; +Lidocaine HCl 4% 5 ML SDA ONE; +MELATONIN3 M1 PO; +MULTI-VITAMIN1 EAC2 PO; +VITAMIN D5000 UNIT PO
[2024-09-29] MEDS ORDERED: RIFA550T2 (10:30)
[2024-09-29] MEDS ORDERED: propofoL 50 ML IV ONE (10:38)
[2024-09-29] MEDS ORDERED: Inderal 20 mg T20 MG (10:56)
[2024-09-29] MEDS ORDERED: Albuterol 2.5 MG/3 ML VIAL ONE (10:58)
[2024-09-29] MEDS ORDERED: Lactated Ringer's 1,000 ML IV ONE (11:04)
--- NOTE | 2024-09-29 11:10 | NUR ---
09/29/24 1110 Deidre Hector PT. DENIES ANY PAIN.
[2024-09-29 12:13] VITALS: BP 130/76
== END 2024-09-29 12:11 | disposition home or self-care (01) ==
LOC: ORSCSDS 09:03
PROVIDERS: Internal Medicine Gastroenterology
PROC: 0DJ08ZZ Inspection of Upper Intestinal Tract, Via Natural or Artificial Opening Endoscopic (ICD-10-PCS; principal; 2024-09-29 11:00)
DX: K70.31 Alcoholic cirrhosis of liver with ascites (principal); I85.10 Secondary esophageal varices without bleeding; K76.6 Portal hypertension; I12.9 Hypertensive chronic kidney disease with stage 1 through stage 4 chronic kidney disease, or unspecified chronic kidney disease; Z87.891 Personal history of nicotine dependence; Z79.899 Other long term (current) drug therapy
CPT/HCPCS: 82947; J2003; J2704; J7120

== ENCOUNTER → 2024-10-27 | Outpatient (CLI) | payer OTHER ==
[~2024-10-27] MED LIST changes: +Inderal 20 mg T20 MG; -Lactated Ringer's 1,000 ML IV ONE; -Lidocaine HCl 4% 5 ML SDA ONE; +RIFA550T2; +SULFAMETHOXAZO1 EAC1 PO
== END ==
LOC: LAB 18:21 → LAB SHORT 18:21
DX: N39.0 Urinary tract infection, site not specified (principal)
CPT/HCPCS: 87086

== ENCOUNTER 2024-10-30 01:33 | Inpatient (IN) | payer OTHER ==
[~2024-10-30] VITALS: Ht 182.9 cm; Wt 112.1 kg
[2024-10-30] VITALS (57 sets, daily range): BP systolic 74–133; BP diastolic 41–104
[~2024-10-30 01:33] MED LIST changes: -SULFAMETHOXAZO1 EAC1 PO
[2024-10-30] MEDS ORDERED: NS 1,000 ML IV ONE ×3 (01:39→03:57)
[2024-10-30 02:06] LABS: International Normalized Ratio 1.09; Prothrombin Time Results 11.6 Sec (9.7-11.5)
[2024-10-30 02:10] LABS: BASOPHILS ABSOLUTE AUTO 0.09 K/mm3 (0.00-0.23); BASOPHILS PERCENT AUTO 1 % (0-2); EOSINOPHILS ABSOLUTE AUTO 0.46 K/mm3 (0.00-0.68); EOSINOPHILS PERCENT AUTO 4 % (0-6); Hematocrit 23.1 % (37.0-53.0); Hemoglobin 6.8 g/dL (13.5-17.5); IMMATURE GRAN ABSOLUTE AUTO 0.24 K/mm3 (0.00-0.10); IMMATURE GRAN PERCENT AUTO 2 % (0-1); LYMPHOCYTES ABSOLUTE AUTO 1.51 K/mm3 (0.84-5.20); LYMPHOCYTES PERCENT AUTO 12 % (21-46); MONOCYTES ABSOLUTE AUTO 1.63 K/mm3 (0.16-1.47); MONOCYTES PERCENT AUTO 13 % (4-13); Mean Corpuscular HGB 23.8 pg (26.0-34.0); Mean Corpuscular HGB Conc 29.4 g/dL (31.5-36.5); Mean Corpuscular Volume 81 fL (80-100); Mean Platelet Volume 10.5 fL (9.1-12.4); NEUTROPHILS ABSOLUTE AUTO 8.46 K/mm3 (1.96-9.15); NEUTROPHILS PERCENT AUTO 68 % (41-73); NRBC ABSOLUTE 0.13 K/mm3 (0.00-0.02); Platelet Count 204 K/mm3 (150-400); RDW Coefficient Variation 18.1 % (11.7-14.2); RDW Standard Deviation 52.6 fL (35.1-46.3); Red Blood Cell Count 2.86 M/mm3 (4.30-5.90); White Blood Cell Count 12.39 K/mm3 (4.00-11.30)
[2024-10-30 02:17] LABS: Albumin, Blood 2.8 g/dL (3.4-5.0); Albumin/Globulin Ratio 0.9 (0.8-1.8); Bilirubin, Total 0.7 mg/dL (0.1-1.0); Bun/Creatinine Ratio 6.3 (12.0-20.0); Calcium, Blood 8.4 mg/dL (8.5-10.1); Creatinine, Blood 1.91 mg/dL (0.60-1.20); Globulin, Blood 3.1 g/dL (2.2-4.0); Potassium, Blood 3.9 mmol/L (3.5-5.5); Total Protein, Blood 5.9 g/dL (6.4-8.2)
[2024-10-30] MEDS ORDERED: CefTRIAXone Sodium 2,000 MG in NS 100 ML IV ONE (02:40)
[2024-10-30] MEDS ORDERED: Octreotide Acetate 500 MCG in NS 250 ML IV SCH (04:20)
[2024-10-30] MEDS ORDERED: Octreotide Acetate 50 MCG in NS 50 ML IV ONE (04:20)
[2024-10-30] MEDS ORDERED: FLU VACC TS2024-25(6MOS UP)/PF 45 MCG/0.5 ML SYRINGE IM ONE (05:15)
[2024-10-30] MEDS ORDERED: SULFAMETHOXAZO1 EAC1 PO (05:20)
[2024-10-30] MEDS ORDERED: Sodium, Potassium,Mag Sulfates 354 ML PO SCH (05:35)
[2024-10-30] MEDS ORDERED: NS 1,000 ML IV SCH (06:00)
[2024-10-30] MEDS ORDERED: Albuterol HFA200 ACT/6.7 GM INH INH PRN (06:20)
--- NOTE | 2024-10-30 06:44 | NUR ---
EMS NON-PATENT IO REMOVED PT ARRIVES TO ICU WITH A NON-PATENT IO PLACED TO LEFT LOWER LEG. PT REPORTING SIGNIFICANT PAIN. PLACEMENT WAS APPROX 1 INCH PROXIMAL TO NORMAL INSERTION SITE. IO PULLED OUT STRAIGHT, WITH MINIMAL BLEEDING NOTED AT SITE. BANDAID PLACED, OFFERED ICE AND OR HEAT TO SITE WICH PT DECLINED.
--- NOTE | 2024-10-30 07:35 | NUR ---
ADMIT 06 RECIEVED PT FROM ED VIA STRETCHER, TRANSFERRED TO ICU BED ROOM 8 VIS SLIDE SHEET, PT ALERT AND ORIENTED X4, FOLLOWS COMMANDS, ABLE TO MAKE NEEDS KNOWN, VSS, AFEBRILE, SR, BP MAP>65, SBP 110s, SPO2 >93% ON RA, RESP EVEN AND UNLABORED, PIV TO RIGHT SHOULDER WITH SANDOSTATIN INFUSING AT 25 ML/HR, PIV TO LEFT UPPER ARM PATENT AND CLAMPED, PIV TO LEFT AC PATENT WITH 2 ND UNIT PRBC INFUSING AT 175 ML/HR AND COMPLETED AT 0643, NO REACTION NOTED, ILEOSTOMY APPLIANCE APPLIED AND BAG PLACED, PT TOLERATED WELL, NO OUTPUT NOTED, IO REMOVED BY JO GREEN RN, URINAL PLACED WITHIN REACH, PT ORIENTED TO ROOM, CALL LIGHT, BED CONTROLS, DENIES C/O PAIN OR NEEDS AT THIS TIME, NS INFUSING AT 150 ML/HR, SIDE RAILS UP X2 CALL LIGHT IN REACH
[2024-10-30] MEDS ORDERED: Famotidine 20 MG Tab PO SCH (09:00)
[2024-10-30] MEDS ORDERED: Furosemide 20 MG Tab PO SCH (09:00)
[2024-10-30] MEDS ORDERED: Spironolactone 50 MG Tab PO SCH (09:00)
[2024-10-30] MEDS ORDERED: Citalopram Hydrobromide 10 MG TAB PO SCH (09:00)
[2024-10-30] MEDS ORDERED: Propranolol HCL 20 MG TAB PO SCH (09:00)
[2024-10-30] MEDS ORDERED: RifAXIMin 550 MG Tablet PO SCH (09:00)
[2024-10-30] MEDS ORDERED: buPROPion HCL 150 MG TAB.SR.12H PO SCH (09:00)
[2024-10-30] MEDS ORDERED: Trimethoprim/Sulfamethoxazole DS Tab PO SCH (09:00)
--- NOTE | 2024-10-30 11:30 | NUR ---
BLEEDING FROM ILEOSTOMY AND NOTIFICATION OF MDS: PATIENT STOOD AT THE BEDSIDE TO GET CLEANED UP AND TO PUT ON A GOWN. UPON STANDING, BREAK RN NOTED NIRU BLOOD IN ILEOSTOMY BAG. HE CHANGED THE BAG TO A UROSTOMY COLLECTION BAG BASED ON THE LIQUID OUTPUT. PATIENT CONTINUED TO EXPERIENCE BLEEDING. THIS RN AT THE BEDSIDE. A LARGE CLOT WAS OBSTRUCTING EMPTYING THE BAG. CHANGED THE BAG BACK TO AN OSTOMY COLLECTION BAG. DURING THIS, BLOOD WAS SQUIRTING OUT OF A OPENING ON THE OUTSIDE OF THE STOMA. PRESSURE APPLIED AND NEW BAG APPLIED. PRESSURE HELD BY THE PATIENT AND PLACED PATIENT BACK INTO BED. PATIENT REPORTING DIZZINESS AND MILD NAUSEA. VITALS STABLE. NOTIFIED DR. JONAS. DR. JONAS AT BEDSIDE. NO NEW ORDERS AT THIS TIME. NOTIFIED DR. BASS. PER DR. BASS, PATIENT WILL BE SCOPED NEXT.
[2024-10-30 12:07] LABS: Hematocrit 27.7 % (37.0-53.0); Hemoglobin 8.5 g/dL (13.5-17.5)
[2024-10-30] MEDS ORDERED: Lactated Ringer's 1,000 ML IV SCH (12:50)
[2024-10-30] MEDS ORDERED: EpiNEPhrine 1 MG/1 ML 1ML Vial ONE (13:55)
--- NOTE | 2024-10-30 14:28 | NUR ---
PT IN ICU8 S/P GI BLEED THROUGH THE ILEOSTOMY. S/P 2 UNITS PRBC'S Patient confirms NPO status and agrees with scheduled surgery. Pre-Op teaching done. Pt verbalizes understanding. History, Chart, Medications and Allergies reviewed before start of procedure.
--- NOTE | 2024-10-30 14:32 | NUR ---
10/30/24 1432 Kamran Prabhakar MONITOR INTACT WITH CONTINUOUS PULSE OXIMETRY, CONTINUOUS END TITAL CO2, 3-LEAD EKG AND INTERMITTENT BLOOD PRESSURE.PER ICU MONITORS. ANESTHESIA PER DR. BOWERS
[2024-10-30 15:59] LABS: Hematocrit 23.6 % (37.0-53.0); Hemoglobin 7.3 g/dL (13.5-17.5)
--- NOTE | 2024-10-30 18:16 | NUR ---
SHIFT SUMMARY: NEURO: PATIENT ALERT AND ORIENTED X4. PATIENT INDEPENDENT AT HOME. PATIENT DENIED NUMBNESS/TINGLING THROUGHOUT THE SHIFT. EQUAL STRENGTH THROUGHOUT. PATIENT INDEPENDENT WITH REPOSITIONING IN THE BED. CARDIAC: PATIENT IN SINUS ANA AND NSR THROUGHOUT THE SHIFT. VITALS STABLE WITH MAPS >65 OTHER THAN DURING ENDO PROCEDURE. LOW BPS RESOLVED WITH END OF PROPOFOL USED DURING PROCEDURE. PATIENT REPORTED SOME DIZZINESS IN THE AM RELATED TO THE BLEED FROM THE ILEOSTOMY. RESPIRATORY: PATIENT STABLE ON ROOM AIR WITH SPO2 >98%. PATIENT DENIED SHORTNESS OF BREATH OR DIFFICULTY BREATHING. GI: SEE NURSE'S NOTE RE: BLEEDING IN THE AM. THE PATIENT DID NOT HAVE ANY BLEEDING FOR THE REST OF THE SHIFT. PATIENT TOLERATED ENDO PROCEDURE WELL. DR. BASS AT BEDSIDE THIS EVENING TO DISCUSS RESULTS AND RECOMMENDATION FOR A TIPS PROCEDURE. PATIENT AND HIS SISTER REPORTED UNDERSTANDING. PATIENT TOLERATING PO INTAKE WITHOUT DIFFICULTY. : PATIENT VOIDING WITHOUT DIFFICULTY. URINE IS DARK YELLOW IN COLOR. PSYCHSOCIAL: PATIENT CALM AND COOPERATIVE. PATIENT'S GIRLFRIEND AND SISTER AND ENCOURAGING AND SUPPORTIVE OF THE PATIENT. PATIENT REPORTED THAT HE IS BEHIND ON HIS RENT AND THAT HE JUST LOST HIS JOB. DENIES FINANCIAL STRAIN AT THIS MOMENT.
[2024-10-30] MEDS ORDERED: Sodium Chloride 0.45% 1,000 ML IV SCH (21:00)
[2024-10-30] MEDS ORDERED: Phenylephrine HCl 100 MCG/ML-NS 10MLSYR (1MG/10ML) IV ONE (22:22)
[2024-10-30] MEDS ORDERED: Propofol 10mg/ml 20 ml Vial (Procedural) IV ONE (22:22)
[2024-10-31] VITALS (11 sets, daily range): BP systolic 98–125; BP diastolic 44–70
--- NOTE | 2024-10-31 03:38 | NUR ---
UPDATE ASSUMED CARE OF PT AT 1900, PT ALERT AND ORIENTED X4, FOLLOWS COMMANDS, ABLE TO MAKE NEEDS KNOWN, DENIES C/O PAIN OR SOB, VSS, AFEBRILE, SR, BP STABLE WITH MAP >60, RESP EVEN AND UNLABORED ON RA, PT AMBULATES WITHOUT ASSIST IN ROOM, GAIT STEADY, PT AMBULATED TO SHOWER ROOM AT 2210, SHOWER WITHOUT ASSIST, AND AMBULATED BACK TO ROOM, ILEOSTOMY TO RUQ ABD PATENT WITH PT OWN SUPPLIES, NOTED LIGHT GREEN LIQUID STOOL, PT EMPTIES INDEPENDENTLY, VOIDS WITHOUT DIFFICULTY, PIV TO RIGHT SHOULDER, LEFT AC AND LEFT UPPER ARM PATENT, SANDOSTATIN INFUSING AT 25 ML/HR AND 1/2 NS INFUSING AT 125 ML/HR. 5015 REPORT CALLED TO VINITA HOPSON FOR TRANSFER TO ROOM [phone] PT TRANSFERRED TO ROOM 310 VIA WC WITH ALL PERSONAL BELONGINGS, SISTER AT PT SIDE
[2024-10-31 03:48] LABS: BASOPHILS ABSOLUTE AUTO 0.02 K/mm3 (0.00-0.23); BASOPHILS PERCENT AUTO 0 % (0-2); EOSINOPHILS ABSOLUTE AUTO 0.25 K/mm3 (0.00-0.68); EOSINOPHILS PERCENT AUTO 4 % (0-6); Hematocrit 21.3 % (37.0-53.0); Hemoglobin 6.6 g/dL (13.5-17.5); IMMATURE GRAN ABSOLUTE AUTO 0.04 K/mm3 (0.00-0.10); IMMATURE GRAN PERCENT AUTO 1 % (0-1); LYMPHOCYTES ABSOLUTE AUTO 0.97 K/mm3 (0.84-5.20); LYMPHOCYTES PERCENT AUTO 14 % (21-46); MONOCYTES PERCENT AUTO 14 % (4-13); Mean Corpuscular HGB 25.7 pg (26.0-34.0); Mean Corpuscular Volume 83 fL (80-100); Mean Platelet Volume 10.4 fL (9.1-12.4); NEUTROPHILS ABSOLUTE AUTO 4.82 K/mm3 (1.96-9.15); NEUTROPHILS PERCENT AUTO 68 % (41-73); NRBC ABSOLUTE 0.07 K/mm3 (0.00-0.02); Platelet Count 101 K/mm3 (150-400); RDW Coefficient Variation 17.6 % (11.7-14.2); RDW Standard Deviation 51.8 fL (35.1-46.3); Red Blood Cell Count 2.57 M/mm3 (4.30-5.90)
--- NOTE | 2024-10-31 03:54 | NUR ---
REPORT WAS RECEIVED FROM ICU NURSE. PT WAS BROUGHT DOWN TO ROOM 310 VIA W/C. PT ALERT ORIENTED X 4 ABLE TO VERBALIZE NEEDS GETS UP AD SAMY IN ROOM. HE WAS ORIENTED TO ROOM AND STAFF. NO BLEEDING SEEN IN OSTOMY BAG. NO C/O PAIN. RESTING IN BED AT THIS TIME WITH CALL LIGHT IN REACH
[2024-10-31 04:05] LABS: International Normalized Ratio 1.12; Prothrombin Time Results 11.9 Sec (9.7-11.5)
[2024-10-31 04:10] LABS: Albumin, Blood 2.3 g/dL (3.4-5.0); Albumin/Globulin Ratio 0.9 (0.8-1.8); Bilirubin, Total 0.7 mg/dL (0.1-1.0); Bun/Creatinine Ratio 8.1 (12.0-20.0); Calcium, Blood 7.1 mg/dL (8.5-10.1); Creatinine, Blood 1.35 mg/dL (0.60-1.20); Globulin, Blood 2.6 g/dL (2.2-4.0); Potassium, Blood 4.2 mmol/L (3.5-5.5); Total Protein, Blood 4.9 g/dL (6.4-8.2)
[2024-10-31] MEDS ORDERED: CefTRIAXone Sodium 2,000 MG in NS 100 ML IV SCH (06:00)
[2024-10-31] MEDS ORDERED: CefTRIAXone Sodium 1,000 MG in NS 100 ML IV SCH (06:00)
[2024-10-31] MEDS ORDERED: NS 500 ML IV SCH (07:35)
--- NOTE | 2024-10-31 08:23 | NUR ---
NO CHANGES SINCE ARRIVAL TO ROOM 310. PT WAS A/OX4, CALLED APPROPRIATELY NEED AND WAS UP AD SAMY. NO CONTINUED BLEEDING OBSERVED TO ILEOSTOMY AND PT CONT'S TO SELF CARE FOR IT W/HOME SUPPLIES. L.UA IV INFILTRATED AND WAS SL'D AND NEW IV WAS PLACED TO R.FA. SANDOSTATIN GTT AND 1/2 NS ARE INFUSING CONCURRENTLY PER EMAR. HGB WAS 6.6 THIS AM. MADE AWARE W/NEW ORDERS RECEIVED TO TRANSFUSE 1 UNIT PRBC'S NOW THEN RECHECK HGB/HCT 1 HR AFTER TRANSFUSION COMPLETED. IF HGB IS < 7.0 IN PRESENCE OF NO FURTHER ACTIVE BLEEDING, TRANSFUSE 1 MORE UNIT PRBC'S. BUT IF PT DEVELOPS BLEEDING, ALERT IMMEDIATELY. DAY RN MADE AWARE. NO ACUTE CHANGES, AM VSS/AFEBRILE AND REPORT PROVIDED TO DAY RN.
--- NOTE | 2024-10-31 08:46 | NUR ---
PRBC TRANSFUSING, PT HAS NIRU RED BLOOD OOZING FROM ILEOSTOMY. THIS RN NOTIFIED DR. BASS ORDERED, DR. BASS ASKED THAT I NOTIFY DR. SMITH AND REQUEST A CALL FROM DR. JONAS TO DR. BASS. DR. SMITH NOTIFIED BY THIS RN. PER , WILL CALL SHELIA.
[2024-10-31] MEDS ORDERED: Spironolactone 50 MG Tab PO SCH (09:00)
--- NOTE | 2024-10-31 09:44 | NUR ---
TRANSFER CALLED IMAGING AND REQUESTED IMAGES BE PUSHED TO [facility]. NURSING MATTRESS FINISHER NOTIFIED OF DR JONAS ORDER TO TRANSFER PT TO ICU. NO BED ASSIGNMENT. CARE ONGOING.
[2024-10-31 10:07] LABS: CORONAVIRUS COVID-19 AG Negative (NEGATIVE); INFLUENZA A AG Negative (NEGATIVE); INFLUENZA B AG Negative (NEGATIVE)
[2024-10-31 13:18] LABS: Hematocrit 23.7 % (37.0-53.0); Hemoglobin 7.3 g/dL (13.5-17.5)
--- NOTE | 2024-10-31 14:32 | NUR ---
REPORT GIVEN TO EMILIANA ALMAZAN AT [facility]. PT TO BE FLIGHTED TO [facility] AIR ARRIVAL TIME [id number]
--- NOTE | 2024-10-31 15:43 | NUR ---
PT TRANSPORTED VIA AIR LIFT. ALERT AND ORIENTED X4. TOTAL OF 1 UNIT OF PRBC GIVEN ON THIS FLOOR AND 1 UNIT TRANSPORTED WITH PT. PT DENIES PAIN, SOB. APPROX 100 CC NIRU RED BLOOD FROM ILIOSTOMY THIS SHIFT. TRANSPORTERS AWARE OF POTENTIAL HEAVY BLEED. FAMILY AT BEDSIDE.
== END 2024-10-31 15:41 | disposition short-term general hospital (02) | DRG 394 ==
LOC: ER 01:33 → ERHOLD 04:47 → ICUE 04:47 → MEDS 04:47 → ICUE 06:42 → MEDS 10-31 03:52
PROVIDERS: Family Medicine; Internal Medicine Gastroenterology; Student in an Organized Health Care Education/Training Program; ADMIT Internal Medicine
PROC: 30233N1 Transfusion of Nonautologous Red Blood Cells into Peripheral Vein, Percutaneous Approach (ICD-10-PCS; 2024-10-30)
PROC: 0DJD8ZZ Inspection of Lower Intestinal Tract, Via Natural or Artificial Opening Endoscopic (ICD-10-PCS; principal; 2024-10-30 11:00)
PROC: 0DJ08ZZ Inspection of Upper Intestinal Tract, Via Natural or Artificial Opening Endoscopic (ICD-10-PCS; 2024-10-30 11:00)
DX: K94.11 Enterostomy hemorrhage (principal); D62 Acute posthemorrhagic anemia; K76.6 Portal hypertension; K51.90 Ulcerative colitis, unspecified, without complications; F33.9 Major depressive disorder, recurrent, unspecified; J90 Pleural effusion, not elsewhere classified; E87.1 Hypo-osmolality and hyponatremia; I85.10 Secondary esophageal varices without bleeding; N17.9 Acute kidney failure, unspecified; K70.31 Alcoholic cirrhosis of liver with ascites; I86.4 Gastric varices; I86.8 Varicose veins of other specified sites; F41.9 Anxiety disorder, unspecified; F10.21 Alcohol dependence, in remission; N18.9 Chronic kidney disease, unspecified; E66.01 Morbid (severe) obesity due to excess calories; R60.0 Localized edema; R16.1 Splenomegaly, not elsewhere classified; I95.9 Hypotension, unspecified; K31.89 Other diseases of stomach and duodenum; Z90.49 Acquired absence of other specified parts of digestive tract; Z87.891 Personal history of nicotine dependence; Z79.2 Long term (current) use of antibiotics
CPT/HCPCS: 36415; 36430; 74177; 80053; 85014; 85018; 85025; 85610; 85730; 87428-QW; 93005; 93010; 93306; 94640; 94664; 94760; 96361; 96365-59; 96367; 96376; 99285-25; A9270; G0378; J0171; J0696; J2354; J2371; J2704; J7030; J7050; J7120; P9016; Q9967

== ENCOUNTER 2024-12-13 03:01 | Emergency (ER) | payer OTHER ==
[~2024-12-13] VITALS: Ht 182.9 cm; Wt 113.4 kg
[~2024-12-13 03:01] MED LIST changes: +SULFAMETHOXAZO1 EAC1 PO
[2024-12-13] MEDS ORDERED: Ondansetron HCl 2 MG / ML 2ML Vial IV PRN (03:20)
[2024-12-13 03:55] LABS: BASOPHILS ABSOLUTE AUTO 0.06 K/mm3 (0.00-0.23); BASOPHILS PERCENT AUTO 2 % (0-2); EOSINOPHILS ABSOLUTE AUTO 0.18 K/mm3 (0.00-0.68); EOSINOPHILS PERCENT AUTO 5 % (0-6); Hematocrit 32.4 % (37.0-53.0); Hemoglobin 9.2 g/dL (13.5-17.5); IMMATURE GRAN ABSOLUTE AUTO 0.01 K/mm3 (0.00-0.10); IMMATURE GRAN PERCENT AUTO 0 % (0-1); LYMPHOCYTES ABSOLUTE AUTO 0.82 K/mm3 (0.84-5.20); LYMPHOCYTES PERCENT AUTO 22 % (21-46); MONOCYTES ABSOLUTE AUTO 0.45 K/mm3 (0.16-1.47); MONOCYTES PERCENT AUTO 12 % (4-13); Mean Corpuscular HGB 21.1 pg (26.0-34.0); Mean Corpuscular HGB Conc 28.4 g/dL (31.5-36.5); Mean Corpuscular Volume 75 fL (80-100); NEUTROPHILS ABSOLUTE AUTO 2.25 K/mm3 (1.96-9.15); NEUTROPHILS PERCENT AUTO 60 % (41-73); Platelet Count 52 K/mm3 (150-400); RDW Coefficient Variation 17.6 % (11.7-14.2); RDW Standard Deviation 47.3 fL (35.1-46.3); Red Blood Cell Count 4.35 M/mm3 (4.30-5.90); White Blood Cell Count 3.77 K/mm3 (4.00-11.30)
[2024-12-13 04:12] LABS: Albumin, Blood 3.3 g/dL (3.4-5.0); Albumin/Globulin Ratio 0.8 (0.8-1.8); Bilirubin, Total 1.8 mg/dL (0.1-1.0); Bun/Creatinine Ratio 4.6 (12.0-20.0); Calcium, Blood 8.8 mg/dL (8.5-10.1); Creatinine, Blood 1.09 mg/dL (0.60-1.20); Total Protein, Blood 7.3 g/dL (6.4-8.2)
[2024-12-13] MEDS ORDERED: Potassium Chl 20MEQ/Water100ML 100 ML IV SCH (05:20)
[2024-12-13] MEDS ORDERED: Potassium Chloride 20 MEQ TabCR PO ONE (05:20)
[2024-12-13] MEDS ORDERED: Lactated Ringer's 1,000 ML IV SCH (05:20)
[2024-12-13] MEDS ORDERED: LORazepam 2 MG/ML 1ML Injection IV ONE (05:20)
[2024-12-13] MEDS ORDERED: Haloperidol Lactate Inj. 5 MG/ML Injection IV ONE (06:50)
[2024-12-13 09:46] VITALS: BP 142/72
== END 2024-12-13 09:53 | disposition home or self-care (01) ==
LOC: ER 03:01
PROVIDERS: Emergency Medicine
DX: F10.90 Alcohol use, unspecified, uncomplicated (principal); R11.2 Nausea with vomiting, unspecified; D69.6 Thrombocytopenia, unspecified; R74.01 Elevation of levels of liver transaminase levels; Z87.891 Personal history of nicotine dependence; Z79.899 Other long term (current) drug therapy
CPT/HCPCS: 76705; 80053; 83690; 85025; 93005; 93010; 96361; 96374; 96375; 99284-25; A9270; J1630; J2060; J2405; J3480; J7120

== ENCOUNTER 2025-06-20 12:12 | Emergency (ER) | payer OTHER ==
[~2025-06-20] VITALS: Ht 182.9 cm; Wt 123.8 kg
[2025-06-20 13:38] LABS: Prothrombin Time Results 18.8 Sec (9.7-11.5)
[2025-06-20 15:45] VITALS: BP 107/93
== END 2025-06-20 16:03 | disposition home or self-care (01) ==
LOC: ER 12:12
PROVIDERS: Emergency Medicine
DX: K74.60 Unspecified cirrhosis of liver (principal); F10.10 Alcohol abuse, uncomplicated; Y90.4 Blood alcohol level of 80-99 mg/100 ml; R60.0 Localized edema; N18.30 Chronic kidney disease, stage 3 unspecified; R73.03 Prediabetes; Z87.891 Personal history of nicotine dependence; Z79.899 Other long term (current) drug therapy
CPT/HCPCS: 76705; 80320; 83880; 85610; 93970; 99284-25

== ENCOUNTER → 2025-06-20 | Outpatient (CLI) | payer OTHER ==
[2025-06-20 11:09] LABS: BASOPHILS ABSOLUTE AUTO 0.10 K/mm3 (0.00-0.23); BASOPHILS PERCENT AUTO 1 % (0-2); EOSINOPHILS ABSOLUTE AUTO 0.24 K/mm3 (0.00-0.68); EOSINOPHILS PERCENT AUTO 2 % (0-6); Hematocrit 30.4 % (37.0-53.0); Hemoglobin 10.9 g/dL (13.5-17.5); IMMATURE GRAN ABSOLUTE AUTO 0.20 K/mm3 (0.00-0.10); IMMATURE GRAN PERCENT AUTO 1 % (0-1); LYMPHOCYTES ABSOLUTE AUTO 1.24 K/mm3 (0.84-5.20); LYMPHOCYTES PERCENT AUTO 8 % (21-46); MONOCYTES ABSOLUTE AUTO 1.48 K/mm3 (0.16-1.47); MONOCYTES PERCENT AUTO 10 % (4-13); Mean Corpuscular HGB Conc 35.9 g/dL (31.5-36.5); Mean Corpuscular Volume 117 fL (80-100); NEUTROPHILS ABSOLUTE AUTO 11.58 K/mm3 (1.96-9.15); NEUTROPHILS PERCENT AUTO 78 % (41-73); NRBC ABSOLUTE 0.00 K/mm3 (0.00-0.02); NRBC Auto 0.0 /100 WBC (0.0-0.2); Platelet Count 85 K/mm3 (150-400); RDW Coefficient Variation 22.9 % (11.7-14.2); RDW Standard Deviation 102.1 fL (35.1-46.3)
[2025-06-20 11:10] LABS: Alanine Aminotransfer (ALT/SGP 57.0 U/L (12-78); Albumin, Blood 1.7 g/dL (3.4-5.0); Albumin/Globulin Ratio 0.4 (0.8-1.8); Anion Gap 12.0 mmol/L (3-11); Aspartate Aminotrans (AST/SGOT 270.0 U/L (12-37); Bilirubin, Direct 5.1 mg/dL (0.0-0.3); Bilirubin, Total 6.5 mg/dL (0.1-1.0); Blood Urea Nitrogen 10.0 mg/dL (8-24); CO2, Blood 27.0 mmol/L (21-32); Calcium, Blood 8.7 mg/dL (8.5-10.1); Chloride, Blood 98.0 mmol/L (98-108); Creatinine, Blood 1.55 mg/dL (0.60-1.20); Globulin, Blood 4.1 g/dL (2.2-4.0); Glucose, Blood 125.0 mg/dL (70-99); Magnesium, Blood 1.5 mg/dL (1.6-2.4); Potassium, Blood 4.0 mmol/L (3.5-5.5); Sodium, Blood 133.0 mmol/L (136-145); Total Protein, Blood 5.8 g/dL (6.4-8.2)
[2025-06-22 06:44] LABS: HIV 1,2 COMBO ANTIGEN/ANTIBODY Negative (Negative)
[2025-06-22 07:21] LABS: HEPATITIS A ANTIBODY, IGM Negative (Negative); HEPATITIS C AB CIA INTERP Negative (Negative); HEPATITIS C ANTIBODY CIA INDEX 0.02 IV
== END | disposition home or self-care (01) ==
LOC: LAB SHORT 10:42 → LAB 10:42
PROVIDERS: Chiropractor
DX: R17 Unspecified jaundice (principal); R06.00 Dyspnea, unspecified
CPT/HCPCS: 80053; 80074; 82248; 83690; 83735; 83880; 84484; 85025; 85379; 87389